=== PATIENT | female | born 1995 | race Caucasian/White ===

== ENCOUNTER → 2017-08-25 | Emergency (ER) | payer MEDICAID, SELFPAY | PROVIDERS: Emergency Provider Emergency Medicine; Visit Provider Emergency Medicine | DX: Z53.29 Procedure and treatment not carried out because of patient's decision for other reasons ==

== ENCOUNTER 2017-10-17 23:42 | Emergency (ER) | payer MEDICAID, SELFPAY ==
[2017-10-17 23:55] VITALS: BP 161/103; PULSE 110; RESP 20; TEMP 37; O2SAT 92; BMI 41.5
--- NOTE | 2017-10-18 00:06 | XR_ITS ---
XR chest 2V HISTORY: ITS.REASON: Short of Breath ORDERING PHYSICIAN: Lj Smalls MD PATIENT AGE: 22 years COMPARISON: None available FINDINGS: The cardiomediastinal silhouette and pulmonary vascularity are within normal limits. Slight increased density is present in the left lower lung zone overlying the fourth rib anteriorly may be related to an area of developing infiltrate versus summation artifact. The remaining lungs are clear. No effusions.. No acute bony abnormalities. IMPRESSION: Summation artifact versus patchy infiltrate in the left mid to lower lung zone
[2017-10-18 00:29] LABS: Urine Pregnancy, HCG Qual. Negative (Negative)
--- NOTE | 2017-10-18 00:49 | HMH.EDSOB ---
ED Disposition Clinical Impression: Bronchitis Disposition: Home, Self-Care Condition on Discharge: Good Instructions: DI for Cough -- Adult Additional Instructions: fluids and see pcp friday at 1 pm and use meds and no smoking Prescriptions: Azithromycin [Zithromax 250mg tab] 250 mg PO DIRECTED #6 tab Benzonatate [Tessalon Perle 100mg Cap] 100 mg PO TID #30 cap predniSONE [Prednisone 20mg Tab] 20 mg PO DAILY #10 tab Referrals: Maria Isabel Garrido PA [Primary Care Provider] - - Critical Care Critical Care Time: No Attestation: On 10/17/17, the high probability of a clinically significant, sudden or life threatening deterioration of the following system(s) required my full and direct attention, intervention and personal management. The time I documented below is in addition to time spent performing reported procedures but includes the following listed in this critical care notation. Medical Decision Making Vital Signs: 10/17/17 23:55 10/18/17 01:39 Temperature 98.6 F Temperature Source Oral Pulse Rate 94 H Pulse Rate [Left Radial] 110 H Respiratory Rate 20 Blood Pressure [Right Radial Artery] 161/103 Blood Pressure Mean [Right Radial Artery] 122 Blood Pressure Source [Right Radial Artery] Automatic Cuff Blood Pressure Position [Right Radial Artery] Sitting 02 Sat by Pulse Oximetry 92 L Oxygen Delivery Method Room Air - Lab Data Lab results reviewed: Yes: I reviewed the patient's lab results. Lab Results 10/18/17 00:17: Urine Color Yellow, Urine Appearance Cloudy, Urine pH 8.0, Ur Specific North 1.015, Urine Protein Negative, Urine Glucose (UA) Negative, Urine Ketones Negative, Urine Blood Negative, Urine Nitrate Negative, Urine Bilirubin Negative, Urine Urobilinogen 1.0, Ur Leukocyte Esterase Negative, Ur Squamous Epith Cells 20-50, Amorphous Sediment 3+ 10/18/17 00:17: Urine HCG, Qual Negative 10/18/17 00:40: WBC 10.1, RBC 4.52, Hgb 13.3, Hct 40.6, MCV 89.9, MCH 29.4, MCHC 32.6, RDW 13.6, Plt Count 166, MPV 8.1, Neut % (Auto) 79.1, Lymph % (Auto) 13.6, [place] % (Auto) 4.4, Eos % (Auto) 2.6, Baso % (Auto) 0.3, Neut # (Auto) 8.0 H, Lymph # (Auto) 1.4, [place] # (Auto) 0.4, Eos # (Auto) 0.3, Baso # (Auto) 0.0 10/18/17 00:40: Sodium 143, Potassium 4.0, Chloride 106, Carbon Dioxide 31, Anion Gap 10.0, BUN 13, Creatinine 0.87, Estimated Creat Clear 111, Estimated GFR 82, Est GFR ( Amer) 99, Glucose 104 10/18/17 00:40: Total Creatine Kinase 123, CK-MB (CK-2) < 0.5, CK-MB (CK-2) Rel Index 0.4, Troponin I < 0.02 10/18/17 00:40: Influenza Type A Ag Negative, Influenza Type B Ag Negative 10/18/17 00:40: Total Bilirubin 0.7, Direct Bilirubin 0.0, AST 29, ALT 28, Alkaline Phosphatase 63, Total Protein 8.1, Albumin 3.8 Result diagrams: 10/18/17 00:40 10/18/17 00:40 Orders (Tests/Meds): ED MEDICATIONS Generic Name Dose Route Start Last Admin Trade Name Freq PRN Reason Stop Dose Admin Albuterol Sulfate 2 puffs 10/18/17 02:21 10/18/17 02:50 Proventil-Hfa 90mcg/Puff Inhaler 11/17/17 02:20 2 act Q6HP PRN Administration Shortness Of Breath Discontinued Medications Generic Name Dose Route Start Last Admin Trade Name Freq PRN Reason Stop Dose Admin Albuterol Sulfate 2.5 mg 10/18/17 01:26 10/18/17 01:36 Albuterol 0.083% 2.5mg/3ml Neb 10/18/17 01:27 2.5 mg ONCE ONE Administration Ceftriaxone Sodium 1 gm 10/18/17 02:28 10/18/17 02:51 Rocephin 1gm Vial IM 10/18/17 02:29 1 gm ONCE ONE Administration Dexamethasone Sodium Phosphate 8 mg 10/18/17 02:28 10/18/17 02:51 Decadron 4mg/Ml 1ml Vial IM 10/18/17 02:29 8 mg ONCE ONE Administration Ceftriaxone Sodium 1 gm/ 50 mls @ 100 mls/hr 10/18/17 02:23 Sodium Chloride IV 10/18/17 02:52 ONCE ONE Lidocaine HCl 0 ml 10/18/17 02:28 Lidocaine 1% 10ml Mdv IM 10/18/17 02:29 ONCE ONE Methylprednisolone Sodium Succinate 125 mg 10/18/17 02:23 Solu-Medrol 12
[2017-10-18 00:56] LABS: Basophils % 0.3 % (0.1-2.0); Eosinophils # 0.3 K/mm3 (0.0-0.4); Eosinophils % 2.6 % (0.1-12.0); Hematocrit 40.6 % (37.0-47.0); Hemoglobin 13.3 g/dL (12.2-16.2); Lymphocytes # 1.4 K/mm3 (0.7-4.5); Lymphocytes % 13.6 K/mm3 (10-50); Mean Corpuscular HGB Conc 32.6 g/dL (31.8-35.4); Mean Corpuscular Hemoglobin 29.4 pg (27.0-31.2); Mean Corpuscular Volume 89.9 fl (81-99); Mean Platelet Volume 8.1 fl (7.4-10.4); Monocytes # 0.4 K/mm3 (0.1-1.0); Monocytes % 4.4 % (1.7-9.3); Neutrophils % 79.1 % (37.0-80.0); Platelet Count 166 K/mm3 (142-424); Red Blood Count 4.52 M/mm3 (4.20-5.40); Red Cell Distribution Width 13.6 % (11.5-17.5); White Blood Count 10.1 K/mm3 (4.8-10.8)
[2017-10-18 00:58] LABS: Microscopic, Urine URINE MICROSCOPIC (MICROSCOPIC)
[2017-10-18 01:24] LABS: Appearance,Urine CLOUDY (Clear); Bilirubin,Urine Negative (Negative); Blood, Urine Negative (Negative); Color,Urine YELLOW (Yellow); Glucose,Urine (UA) Negative (Negative); Ketones,Urine Negative (Negative); Leukocyte Esterase,Urine Negative (Negative); Nitrate,Urine Negative (Negative); Protein,Urine Negative (Negative); Specific Gravity, Urine 1.015 (1.005-1.030)
[2017-10-18 01:25] LABS: Blood Urea Nitrogen 13 mg/dL (7-18); Carbon Dioxide 31 mmol/L (21.0-32.0); Chloride 106 mmol/L (98-107); Creatinine Clearance Estimated 111 mL/min (0-300); Creatinine,Serum 0.87 mg/dL (0.55-1.02); Estimated Glomerular Filt Rate 82 ml/min (>60); GFR (African American) 99 ML/MIN (>60); Glucose 104 mg/dL (74-106); Sodium 143 mmol/L (136-145)
[2017-10-18 01:28] LABS: Amorphous Sediment,Urine 3+ /lpf; Squamous Epithelial Cell,Urine 20-50 #/hpf (0-5)
--- NOTE | 2017-10-18 01:29 | PC.NURSE ---
rt aware of orders for breathing treatment
[2017-10-18 01:32] LABS: Alanine Aminotransferase 28 U/L (12-78); Albumin Level 3.8 gm/dL (3.4-5.0); Alkaline Phosphatase 63 U/L (46-116); Aspartate Amino Transferase 29 U/L (15-37); Bilirubin,Total 0.7 mg/dL (0.2-1.0); Total Protein,Serum 8.1 gm/dL (6.4-8.2)
[2017-10-18 01:39] VITALS: PULSE 118; PULSE 94
[2017-10-18 01:47] LABS: Creatine Kinase 123 U/L (26-192); Troponin I < 0.02 ng/ml (0.00-0.06)
[2017-10-18 01:48] LABS: CKMB Relative Index 0.4 U/L (0-4.0); Creatine Kinase MB < 0.5 mg/ml (0.0-3.6)
[2017-10-18 03:26] VITALS: BP 140/80; PULSE 95; RESP 20; TEMP 37.1; O2SAT 93
== END 2017-10-18 03:29 | disposition home or self-care (01) ==
PROVIDERS: Emergency Provider Emergency Medicine; PCP Physician Assistant
DX: J20.9 Acute bronchitis, unspecified (principal); I10 Essential (primary) hypertension; F17.210 Nicotine dependence, cigarettes, uncomplicated; E66.9 Obesity, unspecified; Z68.41 Body mass index [BMI] 40.0-44.9, adult
CPT/HCPCS: 71046; 80048; 80076; 81001; 81025; 82550; 82553; 84484; 85025; 87040; 87275; 87276; 93005; 96372; 99284

== ENCOUNTER → 2017-12-18 13:57 | Outpatient (CLI) | payer MEDICAID, SELFPAY ==
[2017-12-18 18:16] LABS: Basophils % 0.3 % (0.1-2.0); Eosinophils # 0.1 K/mm3 (0.0-0.4); Eosinophils % 2.2 % (0.1-12.0); Hematocrit 46.1 % (37.0-47.0); Hemoglobin 14.8 g/dL (12.2-16.2); Lymphocytes # 1.6 K/mm3 (0.7-4.5); Lymphocytes % 25.7 K/mm3 (10-50); Mean Corpuscular HGB Conc 32.1 g/dL (31.8-35.4); Mean Corpuscular Volume 93.6 fl (81-99); Mean Platelet Volume 7.8 fl (7.4-10.4); Monocytes # 0.4 K/mm3 (0.1-1.0); Monocytes % 5.9 % (1.7-9.3); Neutrophils % 65.8 % (37.0-80.0); Platelet Count 272 K/mm3 (142-424); Red Blood Count 4.92 M/mm3 (4.20-5.40); Red Cell Distribution Width 13.6 % (11.5-17.5); White Blood Count 6.1 K/mm3 (4.8-10.8)
[2017-12-18 18:31] LABS: HCG Qualitative, Serum Negative (Negative)
[2017-12-18 18:35] LABS: Hemoglobin A1C 5.3 % (0.0-7.0)
[2017-12-18 19:54] LABS: Alanine Aminotransferase 21 U/L (12-78); Albumin Level 3.8 gm/dL (3.4-5.0); Albumin/Globulin Ratio 1.1 (1.1-1.8); Alkaline Phosphatase 59 U/L (46-116); Anion Gap 13.5 mEq/L (5-15); Aspartate Amino Transferase 13 U/L (15-37); Bilirubin,Total 0.6 mg/dL (0.2-1.0); Blood Urea Nitrogen 15 mg/dL (7-18); Calcium 9.3 mg/dL (8.5-10.1); Carbon Dioxide 25 mmol/L (21.0-32.0); Chloride 109 mmol/L (98-107); Chol/HDL Ratio 4.2 (1-3.5); Cholesterol 171 mg/dL (140-200); Creatinine,Serum 0.71 mg/dL (0.55-1.02); Estimated Glomerular Filt Rate 104 ml/min (>60); GFR (African American) 126 ML/MIN (>60); Globulin 3.6 gm/dl (1.3-3.2); Glucose 103 mg/dL (74-106); HDL Cholesterol 41 mg/dL (29-89); LDL Cholesterol 111 mg/dL (0-130); Potassium 4.5 mmoL/L (3.5-5.1); Sodium 143 mmol/L (136-145); T4 (Thyroxine) 8.3 ug/dl (4.7-13.3); Thyroid Stimulating Hormone 2.15 uIU/ml (0.358-3.740); Total Protein,Serum 7.4 gm/dL (6.4-8.2); Triglycerides 96 mg/dL (30-200); VLDL Cholesterol 19 mg/dL (0-40)
[2017-12-20 19:02] LABS: Vitamin D 25 Hydroxy 21.5 ng/mL (30.0-100.0)
== END ==
PROVIDERS: Visit Provider Physician Assistant
DX: R53.83 Other fatigue (principal); R73.9 Hyperglycemia, unspecified; E55.9 Vitamin D deficiency, unspecified
CPT/HCPCS: 80053; 80061; 82652; 83036; 84436; 84443; 84703; 85025

== ENCOUNTER → 2018-01-08 22:35 | Outpatient (CLI) | payer OTHER, SELFPAY ==
--- NOTE | 2018-01-08 22:39 | XR_ITS ---
XR ankle LT min 3V HISTORY: ITS.REASON: Left ankle pain ORDERING PHYSICIAN: DERRICK Odom PATIENT AGE: 22 years COMPARISON: FINDINGS: No fracture or dislocation. No lytic or blastic change. There is normal mineralization.. The joint spaces are well-preserved. No significant degenerative/arthritic changes. No erosive changes evident. IMPRESSION: Negative ankle, no acute finding
--- NOTE | 2018-01-08 22:39 | XR_ITS ---
XR foot LT min 3V HISTORY: ITS.REASON: Left foot pain ORDERING PHYSICIAN: DERRICK Odom PATIENT AGE: 22 years COMPARISON: None FINDINGS: No fracture or dislocation. No lytic or blastic change. There is normal mineralization.. The joint spaces are well-preserved. No significant degenerative/arthritic changes. No erosive changes evident. IMPRESSION: Negative, no acute finding
== END ==
PROVIDERS: PCP Physician Assistant; Visit Provider Physician Assistant
DX: M25.572 Pain in left ankle and joints of left foot (principal); M79.672 Pain in left foot
CPT/HCPCS: 73610; 73630

== ENCOUNTER → 2018-09-07 07:52 | Outpatient (CLI) | payer OTHER, MEDICAID, SELFPAY ==
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
== END ==
PROVIDERS: PCP Physician Assistant; Visit Provider Emergency Medicine
DX: S79.912A Unspecified injury of left hip, initial encounter (principal)
CPT/HCPCS: 73721

== ENCOUNTER → 2018-09-17 12:36 | Outpatient (CLI) | payer MEDICAID, OTHER, SELFPAY ==
[2018-09-18 18:07] LABS: HIV Screen 4th Generation wRfx Non Reactive (Non Reactive); Hepatitis C Antibody <0.1 s/co ratio (0.0-0.9)
[2018-09-19 22:49] LABS: Rapid Plasma Reagin Ab Titer Non Reactive (NonRea<1:1)
== END ==
PROVIDERS: Visit Provider Obstetrics & Gynecology
DX: Z11.3 Encounter for screening for infections with a predominantly sexual mode of transmission (principal)
CPT/HCPCS: 36415; 86592; 86703; 87380; G0432

== ENCOUNTER 2018-12-03 13:00 | Outpatient (RCR) | payer OTHER, MEDICAID, SELFPAY | END 2018-12-03 13:05 | disposition home or self-care (01) | LOC: PT 13:00 | PROVIDERS: Visit Provider Family Medicine | DX: G57.00 Lesion of sciatic nerve, unspecified lower limb (principal); M70.60 Trochanteric bursitis, unspecified hip; M25.859 Other specified joint disorders, unspecified hip | CPT/HCPCS: 97010; 97014; 97035; 97110; 97140; 97163; G0283 ==

== ENCOUNTER → 2018-12-07 13:06 | Outpatient (CLI) | payer MEDICAID, SELFPAY ==
--- NOTE | 2018-12-07 13:09 | US_ITS ---
US transvaginal Ordering Physician: Robert Manzano MD Patient Age: 23 years: Female HISTORY: ITS.REASON: pelvic pain amenorrhea for one year .. No pelvic pain TECHNIQUE: Transvaginal pelvic ultrasound COMPARISON :April 08 2017 FINDINGS Uterus appears normal in size measuring 7.25 cm length x 3.1 cm X4.1. Cm. No uterine mass.. Endometrium measures 6.1 mm AP. Fairly homogeneous Nabothian cyst posterior cervical canal measuring up to 5 mm. Right ovary 3.8 x 2.3 x 2.25 cm. There are numerous small follicles measuring less than 4 to 5 mm. Which is seen at the periphery the right ovary. On a single slice section we see at least 9 follicles in one plane. There are likely a few more-suspect likely at least 12 small follicles but. No dominant follicle Left ovary. 3.5 x 2.3 x 2.5 cm. Similar pattern here left ovary with with numerous small less than 4-5 mm follicles throughout and mainly about the margin of the left ovary. On one of image sections of the left ovary there are least 9 of these small follicles evident. Appear to be likely 12 follicles overall both ovaries. No dominant follicle left ovary or either ovary. Carpal requires correlation of the above pattern could be reflection of polycystic ovary syndrome Vitaly previous ovaries noted 2017 No fluid in cul-de-sac. . IMPRESSION: No acute pelvic pathology 1. Uterus within normal limits. Normal size. Moderate endometrial stripe 6.1 mm. 2. Ovaries upper normal in size bilaterally. Numerous small follicles both ovaries.. No dominant follicle in either ovary. Observed 9 Follicle on a single planes section of both right & left ovary. 3.No fluid in cul-de-sac
== END ==
PROVIDERS: PCP Physician Assistant; Visit Provider Obstetrics & Gynecology
DX: R10.2 Pelvic and perineal pain (principal)
CPT/HCPCS: 76830

== ENCOUNTER → 2018-12-29 14:15 | Outpatient (CLI) | payer MEDICAID, SELFPAY ==
[2018-12-29 14:53] LABS: Basophils % 0.3 % (0.1-2.0); Eosinophils # 0.1 K/mm3 (0.0-0.4); Eosinophils % 1.5 % (0.1-12.0); Hematocrit 42.2 % (37.0-47.0); Hemoglobin 13.9 g/dL (12.2-16.2); Lymphocytes # 2.1 K/mm3 (0.7-4.5); Lymphocytes % 22.1 % (10-50); Mean Corpuscular Hemoglobin 29.9 pg (27.0-31.2); Mean Corpuscular Volume 90.5 fl (81-99); Mean Platelet Volume 6.5 fl (7.4-10.4); Monocytes # 0.4 K/mm3 (0.1-1.0); Monocytes % 4.6 % (1.7-9.3); Neutrophils # 6.7 K/mm3 (1.8-7.8); Neutrophils % 71.4 % (37.0-80.0); Platelet Count 261 K/mm3 (142-424); Red Blood Count 4.66 M/mm3 (4.20-5.40); Red Cell Distribution Width 13.6 % (11.5-17.5); White Blood Count 9.4 K/mm3 (4.8-10.8)
[2018-12-29 16:47] LABS: Alanine Aminotransferase 21 U/L (12-78); Albumin Level 3.7 gm/dL (3.4-5.0); Albumin/Globulin Ratio 1.1 (1.1-1.8); Alkaline Phosphatase 57 U/L (46-116); Aspartate Amino Transferase 5 U/L (15-37); Bilirubin,Total 0.5 mg/dL (0.2-1.0); Blood Urea Nitrogen 17 mg/dL (7-18); Calcium 9.1 mg/dL (8.5-10.1); Carbon Dioxide 26 mmol/L (21.0-32.0); Chloride 106 mmol/L (98-107); Creatinine,Serum 1.01 mg/dL (0.55-1.02); Estimated Glomerular Filt Rate 69 ml/min (>60); GFR (African American) 83 ML/MIN (>60); Globulin 3.4 gm/dl (1.3-3.2); Glucose 83 mg/dL (74-106); Sodium 141 mmol/L (136-145); Total Protein,Serum 7.1 gm/dL (6.4-8.2)
== END ==
PROVIDERS: Visit Provider Obstetrics & Gynecology
DX: N93.8 Other specified abnormal uterine and vaginal bleeding (principal)
CPT/HCPCS: 36415; 80053; 85025

== ENCOUNTER 2019-02-01 00:54 | Emergency (ER) | payer MEDICAID, SELFPAY ==
[2019-02-01 00:56] VITALS: BP 139/69; PULSE 69; RESP 20; TEMP 36.7; O2SAT 97; BMI 33.0
--- NOTE | 2019-02-01 00:59 | CT_ITS ---
CT head/brain wo con COMPARISON: Noncontrast CT scan of brain 03/23/2017 HISTORY: Dizziness TECHNIQUE: Multiple axial scans obtained from base skull to the vertex and were performed without IV contrast. FINDINGS: The base of skull is normal except for small amount of fluid in the left half of the sphenoid sinus. The ventricular system is normal. The guerin-white matter interface appears normal. There are no extra-axial fluid collections and there is no bleed. The bony calvarium appears intact. IMPRESSION: Minimal sphenoid sinus inflammatory disease otherwise negative noncontrast CT scan of brain, agree the [facility] report
--- NOTE | 2019-02-01 00:59 | XR_ITS ---
XR chest 2V HISTORY: ITS.REASON: chest pain ORDERING PHYSICIAN: Lj Smalls MD PATIENT AGE: 23 years COMPARISON: PA and lateral chest 08/19/2018 FINDINGS: The cardiomediastinal silhouette and pulmonary vascularity are within normal limits. The lungs are clear without infiltrates, suspicious nodules, or pleural effusions. No acute bony abnormalities. IMPRESSION: Negative chest, no acute finding
--- NOTE | 2019-02-01 01:00 | PC.NURSE ---
Pt has 324 mg of ASA per EMS
[2019-02-01 01:14] LABS: Basophils # 0.1 K/mm3 (0-0.2); Basophils % 0.7 % (0.1-2.0); Eosinophils # 0.2 K/mm3 (0.0-0.4); Eosinophils % 2.3 % (0.1-12.0); Hematocrit 41.1 % (37.0-47.0); Hemoglobin 13.5 g/dL (12.2-16.2); Lymphocytes # 3.2 K/mm3 (0.7-4.5); Lymphocytes % 38.1 % (10-50); Mean Corpuscular Volume 91.1 fl (81-99); Mean Platelet Volume 6.7 fl (7.4-10.4); Monocytes # 0.5 K/mm3 (0.1-1.0); Monocytes % 5.7 % (1.7-9.3); Neutrophils # 4.5 K/mm3 (1.8-7.8); Neutrophils % 53.3 % (37.0-80.0); Platelet Count 269 K/mm3 (142-424); Red Blood Count 4.51 M/mm3 (4.20-5.40); White Blood Count 8.4 K/mm3 (4.8-10.8)
[2019-02-01 01:36] LABS: Alanine Aminotransferase 43 U/L (12-78); Albumin Level 3.5 gm/dL (3.4-5.0); Alkaline Phosphatase 59 U/L (46-116); Anion Gap 13.9 mEq/L (5-15); Aspartate Amino Transferase 15 U/L (15-37); Bilirubin,Direct 0.1 mg/dL (0.0-0.2); Bilirubin,Indirect 0.3 mg/dL (0.0-0.9); Bilirubin,Total 0.4 mg/dL (0.2-1.0); Blood Urea Nitrogen 12 mg/dL (7-18); Calcium 8.8 mg/dL (8.5-10.1); Carbon Dioxide 27 mmol/L (21.0-32.0); Chloride 106 mmol/L (98-107); Creatinine Clearance Estimated 163 mL/min (50-200); Creatinine,Serum 0.89 mg/dL (0.55-1.02); Estimated Glomerular Filt Rate 79 ml/min (>60); GFR (African American) 96 ML/MIN (>60); Glucose 77 mg/dL (74-106); Potassium 3.9 mmoL/L (3.5-5.1); Sodium 143 mmol/L (136-145); Total Protein,Serum 7.5 gm/dL (6.4-8.2); Troponin I < 0.02 ng/ml (0.00-0.06)
--- NOTE | 2019-02-01 02:04 | HMH.EDCP ---
ED Disposition Clinical Impression: Atypical chest pain Headache Qualifiers: Headache type: unspecified Headache chronicity pattern: acute headache Intractability: not intractable Qualified Code(s): R51 - Headache Disposition: Home, Self-Care Condition on Discharge: Good Instructions: DI for Atypical Chest Pain Additional Instructions: see pcp for follow up Referrals: Maria Isabel Garrido PA [Primary Care Provider] - - Critical Care Critical Care Time: No Attestation: On 02/01/19, the high probability of a clinically significant, sudden or life threatening deterioration of the following system(s) required my full and direct attention, intervention and personal management. The time I documented below is in addition to time spent performing reported procedures but includes the following listed in this critical care notation. Medical Decision Making - Medical Records Medical records reviewed: Yes: I reviewed the patient's medical records. - Dionisio Inquiry Pt receiving controlled substance: No Vital Signs: 02/01/19 00:56 Temperature 98.1 F Temperature Source Oral Pulse Rate [Right] 69 Respiratory Rate 20 Blood Pressure [Right Arm] 139/69 Blood Pressure Mean [Right Arm] 92 02 Sat by Pulse Oximetry 97 - Lab Data Lab results reviewed: Yes: I reviewed the patient's lab results. Lab Results 02/01/19 01:05: WBC 8.4, RBC 4.51, Hgb 13.5, Hct 41.1, MCV 91.1, MCH 30.0, MCHC 33.0, RDW 14.0, Plt Count 269, MPV 6.7 L, Neut % (Auto) 53.3, Lymph % (Auto) 38.1, [place] % (Auto) 5.7, Eos % (Auto) 2.3, Baso % (Auto) 0.7, Neut # (Auto) 4.5, Lymph # (Auto) 3.2, [place] # (Auto) 0.5, Eos # (Auto) 0.2, Baso # (Auto) 0.1 02/01/19 01:05: Sodium 143, Potassium 3.9, Chloride 106, Carbon Dioxide 27, Anion Gap 13.9, BUN 12, Creatinine 0.89, Estimated Creat Clear 163, Estimated GFR 79, Est GFR ( Amer) 96, Glucose 77, Calcium 8.8, Total Bilirubin 0.4, Direct Bilirubin 0.1, Indirect Bilirubin 0.3, AST 15, ALT 43, Alkaline Phosphatase 59, Troponin I < 0.02, Total Protein 7.5, Albumin 3.5 Result diagrams: 02/01/19 01:05 02/01/19 01:05 Orders (Tests/Meds): ORDERS Category Date Time Status CT head/brain wo con Stat Cat Scan 02/01/19 00:59 Taken XR chest 2V Stat Exams 02/01/19 00:59 Taken 12-lead EKG Request [ECG Request by Dr/Francisco Javier] Stat Y 02/01/19 00:59 Ordered - Radiology Data #1 Image(s): Chest Image Reviewed: Yes I reviewed the patient's radiology image Preliminary Findings: Normal/NAD - CT Data CT Scan: Head Time Received: 02:[address] Reviewed: Yes: I have viewed the radiologist's interpretation Preliminary Findings: Normal/NAD - ECG Data Tracing #1 Normal Sinus Rhythm: Yes Ischemic changes: non-specific ST-T wave changes Chest Pain HPI - General Chief Complaint: Chest Pain Stated Complaint: chest pain Time Seen by Provider: 02/01/19 01:10 Mode of Arrival: Ambulatory Source of Information: Patient, EMS Limitations: No Limitations Description of Symptoms (Recalled from ER Triage Doc. by RN): Pt states she has had chest pain acorss her chest for several hours now, states she is also dizzy. - History of Present Illness HPI narrative: pt not feeling well and has dizzyness and chest pain MD complaint: chest pain Onset (ago): hour(s) Duration: intermittent Activity at onset: during rest Pain location: left chest Severity: mild - MARIN Score for Non-Stemi Age of Patient: <30 years old Heart Rate: 50-69 bpm Systolic Blood Pressure: 120-139 mmhg Serum Creatinine: 0.80-1.19 mg/dl CHF [place] Class: I-No CHF Other Risk Factors: None Non-Stemi Risk Score: 44 - Related Data On Oral Contraceptives: No Home Medications Medication Instructions Recorded Confirmed Norgestrel-Ethinyl Estradiol 1 tab PO ONCE 02/01/19 02/01/19 [Cryselle-28 Tablet] Allergies Allergy/AdvReac Type Severity Reaction Status Date / Time No Known Allergies Allergy Verified 01/18/19 09:54
--- NOTE | 2019-02-01 02:07 | ED_ITS ---
ED Disposition Clinical Impression: Atypical chest pain Headache Qualifiers: Headache type: unspecified Headache chronicity pattern: acute headache Intract ability: not intractable Qualified Code(s): R51 - Headache Disposition: Home, Self-Care Condition on Discharge: Good Instructions: DI for Atypical Chest Pain Additional Instructions: see pcp for follow up Referrals: Maria Isabel Garrido PA [Primary Care Provider] - - Critical Care Critical Care Time: No Attestation: On 02/01/19, the high probability of a clinically significant, sudden or life threatening deterioration of the following system(s) required my full and direct attention, intervention and personal management. The time I documented below is in addition to time spent performing reported procedures but includes the following listed in this critical care notation. Medical Decision Making - Medical Records Medical records reviewed: Yes: I reviewed the patient's medical records. - Dionisio Inquiry Pt receiving controlled substance: No Vital Signs: 02/01/19 00:56 Temperature 98.1 F Temperature Source Oral Pulse Rate [Right] 69 Respiratory Rate 20 Blood Pressure [Right Arm] 139/69 Blood Pressure Mean [Right Arm] 92 02 Sat by Pulse Oximetry 97 - Lab Data Lab results reviewed: Yes: I reviewed the patient's lab results. Lab Results 02/01/19 01:05: WBC 8.4, RBC 4.51, Hgb 13.5, Hct 41.1, MCV 91.1, MCH 30.0, MCHC 33.0, RDW 14.0, Plt Count 269, MPV 6.7 L, Neut % (Auto) 53.3, Lymph % (Auto) 38.1, [place] % (Auto) 5.7, Eos % (Auto) 2.3, Baso % (Auto) 0.7, Neut # (Auto) 4.5, Lymph # (Auto) 3.2, [place] # (Auto) 0.5, Eos # (Auto) 0.2, Baso # (Auto) 0.1 02/01/19 01:05: Sodium 143, Potassium 3.9, Chloride 106, Carbon Dioxide 27, Anion Gap 13.9, BUN 12, Creatinine 0.89, Estimated Creat Clear 163, Estimated GFR 79, Est GFR ( Amer) 96, Glucose 77, Calcium 8.8, Total Bilirubin 0.4, Direct Bilirubin 0.1, Indirect Bilirubin 0.3, AST 15, ALT 43, Alkaline Phosphatase 59, Troponin I < 0.02, Total Protein 7.5, Albumin 3.5 Result diagrams: 02/01/19 01:05 02/01/19 01:05 Orders (Tests/Meds): ORDERS Category Date Time Status CT head/brain wo con Stat Cat Scan 02/01/19 00:59 Taken XR chest 2V Stat Exams 02/01/19 00:59 Taken 12-lead EKG Request [ECG Request by /Francisco Javier] Stat Y 02/01/19 00:59 Ordered - Radiology Data #1 Image(s): Chest Image Reviewed: Yes I reviewed the patient's radiology image Preliminary Findings: Normal/NAD - CT Data CT Scan: Head Time Received: 02:[address] Reviewed: Yes: I have viewed the radiologist's interpretation Preliminary Findings: Normal/NAD - ECG Data Tracing #1 Normal Sinus Rhythm: Yes Ischemic changes: non-specific ST-T wave changes Chest Pain HPI - General Chief Complaint: Chest Pain Stated Complaint: chest pain Time Seen by Provider: 02/01/19 01:10 Mode of Arrival: Ambulatory Source of Information: Patient, EMS Limitations: No Limitations Description of Symptoms (Recalled from ER Triage Doc. by RN): Pt states she has had chest pain acorss her chest for several hours now, states she is also dizzy. - History of Present Illness HPI narrative: pt not feeling well and has dizzyness and chest
[2019-02-01 02:44] VITALS: BP 121/76; PULSE 79; RESP 16; TEMP 36.6; O2SAT 100
== END 2019-02-01 02:45 | disposition home or self-care (01) ==
PROVIDERS: Emergency Provider Emergency Medicine; PCP Physician Assistant
DX: R07.89 Other chest pain (principal); K21.9 Gastro-esophageal reflux disease without esophagitis; I10 Essential (primary) hypertension; F17.210 Nicotine dependence, cigarettes, uncomplicated
CPT/HCPCS: 70450; 71046; 80048; 80076; 84484; 85025; 93005; 99283

== ENCOUNTER → 2019-02-08 12:52 | Outpatient (CLI) | payer MEDICAID, SELFPAY ==
[2019-02-08 14:33] LABS: Hemoglobin A1C 5.1 % (0.0-7.0)
[2019-02-08 16:32] LABS: Chol/HDL Ratio 4.9 (1-3.5); Cholesterol 161 mg/dL (140-200); HDL Cholesterol 33 mg/dL (29-89); LDL Cholesterol 105 mg/dL (0-130); T4 (Thyroxine) 12.1 ug/dl (4.7-13.3); Triglycerides 113 mg/dL (30-200); VLDL Cholesterol 23 mg/dL (0-40)
[2019-02-12 06:19] LABS: Vitamin D 25 Hydroxy 27.5 ng/mL (30.0-100.0)
== END ==
PROVIDERS: Visit Provider Nurse Practitioner Family
DX: R51 Headache (principal); R53.83 Other fatigue
CPT/HCPCS: 80061; 82652; 83036; 84436; 84443

== ENCOUNTER → 2019-03-08 11:02 | Outpatient (CLI) | payer MEDICAID, SELFPAY | PROVIDERS: Visit Provider Internal Medicine Cardiovascular Disease | DX: R07.9 Chest pain, unspecified (principal); R06.00 Dyspnea, unspecified; E66.9 Obesity, unspecified; I10 Essential (primary) hypertension; R53.83 Other fatigue; G47.33 Obstructive sleep apnea (adult) (pediatric); F17.200 Nicotine dependence, unspecified, uncomplicated | CPT/HCPCS: 93017 ==

== ENCOUNTER → 2019-03-23 16:11 | Outpatient (CLI) | payer MEDICAID, SELFPAY ==
[2019-03-23 16:14] LABS: Microscopic, Urine URINE MICROSCOPIC (MICROSCOPIC)
[2019-03-23 16:46] LABS: Basophils % 0.5 % (0.1-2.0); Eosinophils # 0.1 K/mm3 (0.0-0.4); Eosinophils % 1.6 % (0.1-12.0); Hematocrit 41.3 % (37.0-47.0); Hemoglobin 13.4 g/dL (12.2-16.2); Lymphocytes # 1.7 K/mm3 (0.7-4.5); Lymphocytes % 22.4 % (10-50); Mean Corpuscular HGB Conc 32.3 g/dL (31.8-35.4); Mean Corpuscular Hemoglobin 28.8 pg (27.0-31.2); Mean Corpuscular Volume 89.1 fl (81-99); Monocytes # 0.4 K/mm3 (0.1-1.0); Neutrophils # 5.4 K/mm3 (1.8-7.8); Neutrophils % 70.6 % (37.0-80.0); Platelet Count 253 K/mm3 (142-424); Red Blood Count 4.64 M/mm3 (4.20-5.40); Red Cell Distribution Width 12.9 % (11.5-17.5); White Blood Count 7.6 K/mm3 (4.8-10.8)
[2019-03-23 16:57] LABS: Appearance,Urine CLEAR (Clear); Bilirubin,Urine Negative (Negative); Blood, Urine 2+ (Negative); Color,Urine YELLOW (Yellow); Glucose,Urine (UA) Negative (Negative); Ketones,Urine Negative (Negative); Leukocyte Esterase,Urine Negative (Negative); Nitrate,Urine Negative (Negative); Protein,Urine TRACE (Negative); Specific Gravity, Urine >= 1.030 (1.005-1.030); Urine Pregnancy, HCG Qual. Negative (Negative)
[2019-03-23 17:27] LABS: Bacteria,Urine Trace /lpf; RBC,Urine Occasional #/hpf (0-3)
[2019-03-23 19:06] LABS: Alanine Aminotransferase 21 U/L (12-78); Albumin Level 3.7 gm/dL (3.4-5.0); Alkaline Phosphatase 55 U/L (46-116); Anion Gap 18.1 mEq/L (5-15); Aspartate Amino Transferase 13 U/L (15-37); Bilirubin,Total 0.5 mg/dL (0.2-1.0); Blood Urea Nitrogen 12 mg/dL (7-18); Calcium 9.1 mg/dL (8.5-10.1); Carbon Dioxide 24 mmol/L (21.0-32.0); Chloride 104 mmol/L (98-107); Creatinine,Serum 0.92 mg/dL (0.55-1.02); Estimated Glomerular Filt Rate 76 ml/min (>60); GFR (African American) 92 ML/MIN (>60); Globulin 3.6 gm/dl (1.3-3.2); Glucose 115 mg/dL (74-106); Potassium 4.1 mmoL/L (3.5-5.1); Sodium 142 mmol/L (136-145); Total Protein,Serum 7.3 gm/dL (6.4-8.2)
== END ==
PROVIDERS: Visit Provider Obstetrics & Gynecology
DX: Z01.818 Encounter for other preprocedural examination (principal); R10.2 Pelvic and perineal pain; N83.209 Unspecified ovarian cyst, unspecified side
CPT/HCPCS: 36415; 80053; 81001; 81025; 85025

== ENCOUNTER → 2019-04-06 15:31 | Outpatient (CLI) | payer MEDICAID, SELFPAY ==
--- NOTE | 2019-04-06 16:08 | XR_ITS ---
XR chest portable HISTORY: PICC line placement ITS.REASON: s/p picc placement ORDERING PHYSICIAN: Robert Manzano MD PATIENT AGE: 23 years COMPARISON: 02/01/2019 FINDINGS: Left upper extremity PICC line has been placed. The tip appears to be in good position in the region of the distal aspect of the superior vena cava. Unremarkable cardiopulmonary structures. IMPRESSION: PICC line tip appears to be in good position FINDINGS called to Antony on 04/06/2019 4:25 PM.
== END ==
PROVIDERS: PCP Physician Assistant; Visit Provider Obstetrics & Gynecology
DX: Z01.818 Encounter for other preprocedural examination (principal)
CPT/HCPCS: 71045; C1751

== ENCOUNTER → 2019-06-07 16:18 | Outpatient (CLI) | payer MEDICAID, SELFPAY ==
--- NOTE | 2019-06-07 16:20 | XR_ITS ---
PROCEDURE: XR WRIST LT W SCAPHOID CLINICAL INDICATION: Left wrist pain COMPARISON: WRL3 WRIST-3 VIEWS-LT from 12/24/2014 WRR3 WRIST-3 VIEWS-RT from 06/07/2015 XR WRIST LT MIN 3V from 06/01/2019 FINDINGS: Bone density, joint spaces and alignment are normal. There is no acute fracture. Soft tissues are unremarkable. IMPRESSION: No acute findings. Dictated by: Mahamed Bajwa 06/07/2019 16:44 Electronically signed by Mahamed Bajwa in [place] 06/07/2019 16:44
== END ==
PROVIDERS: PCP Physician Assistant; Visit Provider Physician Assistant
DX: M25.532 Pain in left wrist (principal)
CPT/HCPCS: 73110

== ENCOUNTER → 2019-06-29 08:49 | Outpatient (CLI) | payer MEDICAID, SELFPAY ==
--- NOTE | 2019-06-29 08:58 | XR_ITS ---
PROCEDURE: XR FOOT WT BEARING RT 3V CLINICAL INDICATION: pain COMPARISON: [id number] XR foot LT min 3V from 01/08/2018 FINDINGS: No fracture or dislocation. No lytic or blastic change. There is normal mineralization. The joint spaces are well-preserved. No significant degenerative/arthritic changes. No erosive changes evident. Other findings:None. IMPRESSION: No acute findings. Dictated by: Troy Owen MD 06/29/2019 17:47 Electronically signed by Troy Owen MD in [place] 06/29/2019 17:47
--- NOTE | 2019-06-29 08:58 | XR_ITS ---
PROCEDURE: XR FOOT WT BEARING LT 3V CLINICAL INDICATION: pain COMPARISON: [id number] XR foot LT min 3V from 01/08/2018 FINDINGS: No fracture or dislocation. No lytic or blastic change. There is normal mineralization. The joint spaces are well-preserved. No significant degenerative/arthritic changes. No erosive changes evident. Other findings:None. IMPRESSION: No acute findings. Dictated by: Troy Owen MD 06/29/2019 17:47 Electronically signed by Troy Owen MD in [place] 06/29/2019 17:47
== END ==
PROVIDERS: PCP Physician Assistant; Visit Provider Nurse Practitioner
DX: M79.672 Pain in left foot (principal); M79.671 Pain in right foot
CPT/HCPCS: 73630

== ENCOUNTER 2019-07-15 09:00 | Outpatient (RCR) | payer MEDICAID, SELFPAY ==
--- NOTE | 2019-06-24 09:43 | HMH.OTOPEV ---
OT Inpatient Evaluation Rehab OT Outpatient Eval Start: 06/24/19 09:20 Freq: Status: Active Protocol: Document 06/24/19 09:22 [id number] (Rec: 06/24/19 09:43 [facility] [id number][facility] Electronically Signed By Enoch Nieto OT 06/24/19 09:22 Outpatient Therapy Subjective History Subjective History Pt is a 23 year old female who reports to therapy for initial evaluation to left wrist. Pt injured wrist on May 30 at work. 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 Pt has had continued pain and swelling at wrist. Upon evaluation pt does demonstrate with significant decline in AROM and strength at left wrist. Pt will continue to be seen twice a week in order to address all deficits. Chief Complaint Pain,Stiff,Weakness Symptom Type Ache,Throb,Sharp,Numbness, Shooting Symptoms Relieved By Nothing Symptoms Aggravated By Physical Activity,Twisting, Lifting Prior Functional Limitations None Current Functional Limitations Reaching,Lifting,Housework, Recreation Activity Symptom Description Constant but Variable Level of pain today (0-10) 9 Pain scale - at its best (0-10) 5 Pain scale - at its worst (0-10) 10 Wrist/Hand Eval Wrist Range of Motion Left Wrist Limitations of Range of Motion Pain Wrist Extension Active Range of Motion ( 25 degrees degrees) Wrist Flexion Active Range of Motion ( 25 degrees degrees) Wrist Radial Deviation Active Range of 13 degrees Motion (degrees) Wrist Ulnar Deviation Active Range of 15 degrees Motion (degrees) Wrist Manual Muscle Testing Left Wrist Extension Strength Grade 4- Good- Wrist Flexion Strength Grade 4- Good- Wrist Radial Deviation Strength Grade 4- Good- Wrist Ulnar Deviation Strength Grade 4- Good- Supervisor Specialty Plant/Pinch Strength Right Supervisor [employer]ty [employer] Strength Measurement (lbs) 20 Left Supervisor Specialty [employer] Strength Measurement (lbs) 0 OT Outpatient Assessment Impairments Problems/Impairments Palpation Tenderness,Impaired Range of Motion,Impaired Strength,Impaired Endurance, Impaired Lifting,Subjective C/ O Pain,Impaired Self Care/
== END 2019-07-15 09:05 | disposition home or self-care (01) ==
LOC: OT 09:00
PROVIDERS: Visit Provider Orthopaedic Surgery
DX: S69.92XA Unspecified injury of left wrist, hand and finger(s), initial encounter (principal)
CPT/HCPCS: 97014; 97110; 97140; 97165; 97763; G0283

== ENCOUNTER → 2019-07-23 14:50 | Outpatient (CLI) | payer MEDICAID, SELFPAY ==
--- NOTE | 2019-07-23 14:54 | XR_ITS ---
PROCEDURE: XR WRIST LT MIN 3V CLINICAL INDICATION: wrist pain COMPARISON: WRR3 WRIST-3 VIEWS-RT from 06/07/2015 XR WRIST LT MIN 3V from 06/01/2019 XR WRIST LT W SCAPHOID from 06/07/2019 XR WRIST LT MIN 3V from 06/19/2019 FINDINGS: No fracture, dislocation, lytic change, or blastic change evident. No significant degenerative change IMPRESSION: No acute findings. Dictated by: Troy Owen MD 07/23/2019 17:05 Electronically signed by Troy Owen MD in [place] 07/23/2019 17:05
== END ==
PROVIDERS: PCP Emergency Medicine; Visit Provider Orthopaedic Surgery
DX: M25.532 Pain in left wrist (principal)
CPT/HCPCS: 73110

== ENCOUNTER 2019-11-04 16:30 | Outpatient (RCR) | payer MEDICAID, SELFPAY | END 2019-11-04 17:00 | disposition home or self-care (01) | LOC: PT 16:30 | PROVIDERS: PCP Physician Assistant; Visit Provider Family Medicine Sports Medicine | DX: M70.60 Trochanteric bursitis, unspecified hip (principal) | CPT/HCPCS: 97010; 97163 ==

== ENCOUNTER 2020-01-19 19:30 | Emergency (ER) | payer MEDICAID, SELFPAY ==
[2020-01-19 19:30] VITALS: BP 158/100; PULSE 88; RESP 18; TEMP 36.7; O2SAT 95; BMI 38.7
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
[2020-01-19 19:49] LABS: Apearance,Urine Cloudy (Clear); Color,Urine Yellow (Yellow); Glucose,Urine (UA) Negative (Negative); Ketones,Urine Negative (Negative); Protein,Urine Negative (Negative)
[2020-01-19 19:50] LABS: Bilirubin,Urine Negative (Negative); Blood, Urine 2+ (Negative); UTC Leukocyte Esterase,Urine Trace (Negative); UTC Nitrate,Urine Negative (Negative); UTC Pregnancy Test, Urine Negative (Negative); Urobilinogen,Urine 1 EU/dl (0.2)
[2020-01-19 20:13] VITALS: BP 158/100; PULSE 88; RESP 18; TEMP 36.7; O2SAT 95
== END 2020-01-19 20:14 | disposition home or self-care (01) ==
PROVIDERS: Emergency Provider Nurse Practitioner Family; PCP Physician Assistant
DX: S39.012A Strain of muscle, fascia and tendon of lower back, initial encounter (principal); K21.9 Gastro-esophageal reflux disease without esophagitis; I10 Essential (primary) hypertension; F17.210 Nicotine dependence, cigarettes, uncomplicated; G43.709 Chronic migraine without aura, not intractable, without status migrainosus
CPT/HCPCS: 81003; 81025; 87086; 96372; 99202

== ENCOUNTER 2020-02-25 01:35 | Emergency (ER) | payer MEDICAID, SELFPAY ==
--- NOTE | 2020-02-25 01:35 | ECG_ITS ---
APPROVED REPORT Exam: Resting ECG HR:76 bpm ECG Measurements Heart Rate 76 AXES MI 148 P 31 QRSd 70 QRS 37 QT 366 T 10 QTc 411 <Conclusion> Normal sinus rhythm Septal infarct, age undetermined Abnormal ECG Electronically signed by : Mik Canchola, 02/25/2020 17:41:40
[2020-02-25 01:36] VITALS: BP 157/94; PULSE 83; RESP 14; TEMP 37.4; O2SAT 99; BMI 35.9
--- NOTE | 2020-02-25 01:44 | XR_ITS ---
PROCEDURE: XR CHEST 2V CLINICAL HISTORY: chest pain COMPARISON: CXR2V XR chest 2V from 08/19/2018 Chest from 02/01/2019 XR CHEST 2V from 09/01/2019 FINDINGS: The cardiomediastinal silhouette and pulmonary vascularity are within normal limits. The lungs are clear without infiltrates, suspicious nodules, or pleural effusions. No acute bony abnormalities. IMPRESSION: No acute findings. Dictated by: Troy Owen MD 02/25/2020 07:06 Electronically signed by Troy Owen MD in [place] 02/25/2020 07:06
--- NOTE | 2020-02-25 01:50 | PC.NURSE ---
call placed to [facility] for iv venipuncture
[2020-02-25 02:33] LABS: Alanine Aminotransferase 15 U/L (12-78); Albumin Level 4.6 g/dl (3.5-5.0); Albumin/Globulin Ratio 1.4 (1.1-1.8); Alkaline Phosphatase 48 U/L (38-126); Amylase 68 U/L (30-110); Anion Gap 13.7 mEq/L (5-15); Aspartate Amino Transferase 26 U/L (14-36); Bilirubin,Total 0.4 mg/dl (0.2-1.3); Blood Urea Nitrogen 15 mg/dl (7-17); Calcium 9.3 mg/dl (8.4-10.2); Carbon Dioxide 29 mmol/L (22.0-30.0); Chloride 100 mmol/L (98-107); Creatinine Clearance Estimated 196 mL/min (50-200); Estimated Glomerular Filt Rate 89 ml/min (>60); GFR (African American) 108 ML/MIN (>60); Globulin 3.2 g/dL (1.3-3.2); Glucose 117 mg/dl (74-100); Lipase 66 U/L (23-300); Potassium 3.7 mmoL/L (3.5-5.1); Sodium 139 mmol/L (136-145); Total Protein,Serum 7.8 g/dl (6.3-8.2)
[2020-02-25 02:34] LABS: Basophils # 0.1 K/mm3 (0-0.2); Basophils % 0.6 % (0.1-2.0); Eosinophils # 0.1 K/mm3 (0.0-0.4); Eosinophils % 1.5 % (0.1-12.0); Hemoglobin 14.1 g/dL (12.2-16.2); Lymphocytes # 3.1 K/mm3 (0.7-4.5); Lymphocytes % 38.6 % (10-50); Mean Corpuscular HGB Conc 34.3 g/dL (31.8-35.4); Mean Corpuscular Hemoglobin 30.9 pg (27.0-31.2); Mean Corpuscular Volume 89.9 fl (81-99); Mean Platelet Volume 6.8 fl (7.4-10.4); Monocytes # 0.5 K/mm3 (0.1-1.0); Monocytes % 6.1 % (1.7-9.3); Neutrophils # 4.3 K/mm3 (1.8-7.8); Neutrophils % 53.3 % (37.0-80.0); Platelet Count 242 K/mm3 (142-424); Red Blood Count 4.57 M/mm3 (4.20-5.40); Red Cell Distribution Width 13.7 % (11.5-17.5); White Blood Count 8.1 K/mm3 (4.8-10.8)
[2020-02-25 02:37] LABS: HCG Qualitative, Serum Negative (Negative)
[2020-02-25 02:44] LABS: Troponin I < 0.01 ng/ml (0.00-0.034)
[2020-02-25 02:59] VITALS: BP 139/91; PULSE 66; RESP 18; O2SAT 97
--- NOTE | 2020-02-25 03:07 | PC.NURSE ---
Patient gone for chest xray at this time
--- NOTE | 2020-02-25 03:10 | HMH.EDCP ---
ED Disposition Clinical Impression: Chest pain Qualifiers: Chest pain type: unspecified Qualified Code(s): R07.9 - Chest pain, unspecified Disposition: Home, Self-Care Condition on Discharge: Good Instructions: DI for Atypical Chest Pain Additional Instructions: see pcp for follow up Referrals: Provider,Referral, [Primary Care Provider] - - Critical Care Critical Care Time: No Attestation: On 02/25/20, the high probability of a clinically significant, sudden or life threatening deterioration of the following system(s) required my full and direct attention, intervention and personal management. The time I documented below is in addition to time spent performing reported procedures but includes the following listed in this critical care notation. Medical Decision Making - Medical Records Medical records reviewed: Yes: I reviewed the patient's medical records. - Dionisio Inquiry Pt receiving controlled substance: No Vital Signs: 02/25/20 01:36 02/25/20 02:59 02/25/20 03:23 Temperature 99.3 F Temperature Source Oral Pulse Rate [Right Brachial] 83 66 70 Respiratory Rate 14 18 Blood Pressure [Right Arm] 157/94 H 139/91 H 139/91 H Blood Pressure Mean [Right Arm] 115 107 107 Blood Pressure Source [Right Arm] Automatic Cuff Automatic Cuff Blood Pressure Position [Right Arm] Sitting Sitting Supine 02 Sat by Pulse Oximetry 99 97 95 Oxygen Delivery Method Room Air Room Air 02/25/20 03:48 Temperature Temperature Source Pulse Rate [Right Brachial] 69 Respiratory Rate Blood Pressure [Right Arm] 133/77 Blood Pressure Mean [Right Arm] 95 Blood Pressure Source [Right Arm] Automatic Cuff Blood Pressure Position [Right Arm] Sitting 02 Sat by Pulse Oximetry 95 Oxygen Delivery Method Room Air - Lab Data Lab results reviewed: Yes: I reviewed the patient's lab results. Lab Results 02/25/20 02:00: WBC 8.1, RBC 4.57, Hgb 14.1, Hct 41.0, MCV 89.9, MCH 30.9, MCHC 34.3, RDW 13.7, Plt Count 242, MPV 6.8 L, Neut % (Auto) 53.3, Lymph % (Auto) 38.6, Mayes % (Auto) 6.1, Eos % (Auto) 1.5, Baso % (Auto) 0.6, Neut # (Auto) 4.3, Lymph # (Auto) 3.1, Mayes # (Auto) 0.5, Eos # (Auto) 0.1, Baso # (Auto) 0.1 02/25/20 02:00: Sodium 139, Potassium 3.7, Chloride 100, Carbon Dioxide 29, Anion Gap 13.7, BUN 15, Creatinine 0.80, Estimated Creat Clear 196, Estimated GFR 89, Est GFR ( Amer) 108, Glucose 117 H, Calcium 9.3, Total Bilirubin 0.4, AST 26, ALT 15, Alkaline Phosphatase 48, Troponin I < 0.01, Total Protein 7.8, Albumin 4.6, Globulin 3.2, Albumin/Globulin Ratio 1.4, Amylase 68 02/25/20 02:00: Lipase 66 02/25/20 02:00: Serum HCG, Qual Negative Result diagrams: 02/25/20 02:00 02/25/20 02:00 Orders (Tests/Meds): ORDERS Category Date Time Status XR chest 2V Stat Exams 02/25/20 01:44 Ordered Troponin I Q3H Lab 02/25/20 04:45 Ordered Troponin I Q3H Lab 02/25/20 07:45 Ordered - Radiology Data #1 Image(s): Chest Image Reviewed: Yes I reviewed the patient's radiology image Preliminary Findings: Normal/NAD - ECG Data Tracing #1 Normal Sinus Rhythm: Yes Ischemic changes: non-specific ST-T wave changes Chest Pain HPI - General Chief Complaint: Chest Pain Stated Complaint: chest pain Time Seen by Provider: 02/25/20 02:00 Mode of Arrival: Ambulatory Source of Information: Patient, Medical Record Limitations: No Limitations Description of Symptoms (Recalled from ER Triage Doc. by RN): Patient reports sharp centralized chest pain and pain down right arm that started about 2000 tonight. - History of Present Illness HPI narrative: acute onset of ant chest pain with rad to rt upper ext with parasthesia to rt upper ext - no sob and no fever or recent illness MD complaint: chest pain indicative of cardiac Onset (ago): hour(s) Duration: constant Activity at onset: during rest Pain location: right chest Severity: moderate Quality: sharp Pain radiation: RUE Risk Factors for CAD: Family Hx
--- NOTE | 2020-02-25 03:11 | PC.NURSE ---
Patient back from xray at this time
[2020-02-25 03:23] VITALS: BP 139/91; PULSE 70; O2SAT 95
[2020-02-25 03:48] VITALS: BP 133/77; PULSE 69; O2SAT 95
[2020-02-25 04:30] VITALS: BP 126/73; PULSE 63; O2SAT 95
[2020-02-25 05:21] VITALS: BP 129/78; PULSE 61; RESP 15; TEMP 37.2; O2SAT 95
--- NOTE | 2020-02-25 05:23 | PC.NURSE ---
Patient refused second troponin and wanted to be discharged
== END 2020-02-25 05:23 | disposition home or self-care (01) ==
PROVIDERS: Emergency Provider Emergency Medicine; PCP Physician Assistant
DX: R07.9 Chest pain, unspecified (principal); K21.9 Gastro-esophageal reflux disease without esophagitis; I10 Essential (primary) hypertension; G43.709 Chronic migraine without aura, not intractable, without status migrainosus; F17.210 Nicotine dependence, cigarettes, uncomplicated; Z86.718 Personal history of other venous thrombosis and embolism
CPT/HCPCS: 71046; 80053; 82150; 83690; 84484; 84703; 85025; 93005; 96374; 96375; 99284

== ENCOUNTER 2020-04-08 | Emergency (ER) | payer MEDICAID, SELFPAY ==
[2020-04-08 00:05] VITALS: BP 140/90; PULSE 82; RESP 16; TEMP 36.7; O2SAT 98; BMI 26.5
--- NOTE | 2020-04-08 00:35 | PC.NURSE ---
URINE SENT TO LAB
[2020-04-08 00:36] LABS: Microscopic, Urine URINE MICROSCOPIC (MICROSCOPIC)
[2020-04-08 00:38] LABS: Appearance,Urine CLOUDY (Clear); Bilirubin,Urine Negative (Negative); Blood, Urine 3+ (Negative); Color,Urine YELLOW (Yellow); Glucose,Urine (UA) Negative (Negative); Ketones,Urine Negative (Negative); Leukocyte Esterase,Urine Negative (Negative); Nitrate,Urine Negative (Negative); Protein,Urine 2+ (Negative); Specific Gravity, Urine >= 1.030 (1.005-1.030)
[2020-04-08 00:41] LABS: RBC,Urine TNTC #/hpf (0-3); WBC,Urine Occasional #/hpf (0-3)
[2020-04-08 00:42] LABS: Urine Pregnancy, HCG Qual. Negative (Negative)
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
--- NOTE | 2020-04-08 00:52 | PC.NURSE ---
REQUESTED PATIENT GIVEN ADDITIONAL URINE, PATIENT STATES IS UNABLE TO . MD NOTIFIED. REQUESTED PO INTAKE GIVEN FOR INCENTIVE TO VOID
[2020-04-08 01:28] VITALS: BP 124/73; PULSE 80; RESP 16; TEMP 36.8; O2SAT 98
[2020-04-11 09:17] LABS: Neisseria gonorrhoeae, NAA Negative (Negative)
== END 2020-04-08 01:40 | disposition home or self-care (01) ==
PROVIDERS: Emergency Provider Family Medicine; PCP Physician Assistant
DX: N72 Inflammatory disease of cervix uteri (principal); A59.9 Trichomoniasis, unspecified; J45.909 Unspecified asthma, uncomplicated; K21.9 Gastro-esophageal reflux disease without esophagitis; I10 Essential (primary) hypertension; G43.709 Chronic migraine without aura, not intractable, without status migrainosus; E55.9 Vitamin D deficiency, unspecified; Z79.899 Other long term (current) drug therapy
CPT/HCPCS: 81001; 81025; 87491; 87591; 96372; 99282

== ENCOUNTER 2020-05-05 16:16 | Emergency (ER) | payer MEDICAID, SELFPAY ==
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
[2020-05-05 17:03] VITALS: BP 134/91; PULSE 109; RESP 20; TEMP 36.9; O2SAT 99; BMI 35.9
[2020-05-05 17:08] LABS: UTC Pregnancy Test, Urine Negative (Negative)
[2020-05-05 17:18] VITALS: BP 134/91; PULSE 109; RESP 20; TEMP 36.9; O2SAT 99
== END 2020-05-05 17:23 | disposition home or self-care (01) ==
PROVIDERS: Emergency Provider Nurse Practitioner Family; PCP Physician Assistant
DX: R07.81 Pleurodynia (principal); M25.512 Pain in left shoulder; M54.2 Cervicalgia; V48.5XXA Car driver injured in noncollision transport accident in traffic accident, initial encounter; Y92.488 Other paved roadways as the place of occurrence of the external cause; I10 Essential (primary) hypertension; G43.709 Chronic migraine without aura, not intractable, without status migrainosus; F17.210 Nicotine dependence, cigarettes, uncomplicated; K21.9 Gastro-esophageal reflux disease without esophagitis
CPT/HCPCS: 81025; 99201

== ENCOUNTER 2020-05-07 16:41 | Emergency (ER) | payer MEDICAID, SELFPAY ==
--- NOTE | 2020-05-07 17:07 | XR_ITS ---
PROCEDURE: XR CERVICAL SPINE 3V CLINICAL INDICATION: PAIN The mid neck pain COMPARISON: CR CS5 CERVICAL SPINE 4 OR 5 VIEWS from 05/17/2014 FINDINGS: Alignment: Normal alignment. Bony structures: No fracture or dislocation. No lytic or blastic change. Disc spaces: No significant degenerative change. The disc spaces are preserved. Additional findings: IMPRESSION: No acute findings. Dictated by: Troy Owen MD 05/07/2020 18:56 Troy Owen MD in [place] 05/07/2020 18:56
--- NOTE | 2020-05-07 17:08 | XR_ITS ---
PROCEDURE: XR RIBS BI MIN 4V W CXR1V CLINICAL INDICATION: PAIN Bilateral rib pain COMPARISON: CR Chest from 02/01/2019 CR XR CHEST 2V from 09/01/2019 CR XR CHEST 2V from 02/25/2020 FINDINGS: Multiple views of the the ribs show no obvious fracture. No lytic or blastic change. Consider follow-up in 7-[address] with 3D reformats if pain persists Frontal view of the chest shows no acute finding IMPRESSION: No acute findings. Dictated by: Troy Owen MD 05/07/2020 18:54 Troy Owen MD in [place] 05/07/2020 18:54
[2020-05-07 17:09] VITALS: BP 136/90; PULSE 83; RESP 20; TEMP 36.9; O2SAT 98; BMI 46.5
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
[2020-05-07 18:00] VITALS: BP 136/90; PULSE 83; RESP 20; TEMP 36.9; O2SAT 98
== END 2020-05-07 18:04 | disposition home or self-care (01) ==
PROVIDERS: Emergency Provider Nurse Practitioner Family; PCP Physician Assistant
DX: M54.2 Cervicalgia (principal); R07.89 Other chest pain; J45.909 Unspecified asthma, uncomplicated; K21.9 Gastro-esophageal reflux disease without esophagitis; I10 Essential (primary) hypertension; G43.709 Chronic migraine without aura, not intractable, without status migrainosus; F17.210 Nicotine dependence, cigarettes, uncomplicated; Z91.048 Other nonmedicinal substance allergy status
CPT/HCPCS: 71111; 72040; 99201

== ENCOUNTER 2020-05-12 15:47 | Emergency (ER) | payer MEDICAID, SELFPAY ==
--- NOTE | 2020-05-12 15:53 | XR_ITS ---
PROCEDURE: XR FOOT LT MIN 3V CLINICAL INDICATION: PAIN COMPARISON: CR [id number] XR foot LT min 3V from 01/08/2018 CR XR FOOT WT BEARING LT 3V from 06/29/2019 CR XR FOOT WT BEARING RT 3V from 06/29/2019 CR XR ANKLE LT MIN 3V from 05/12/2020 FINDINGS: No fracture or dislocation. No lytic or blastic change. There is normal mineralization. The joint spaces are well-preserved. No significant degenerative/arthritic changes. No erosive changes evident. Other findings:None. IMPRESSION: No acute findings. Dictated by: Troy Owen MD 05/12/2020 18:58 Troy Owen MD in [place] 05/12/2020 18:58
--- NOTE | 2020-05-12 16:11 | XR_ITS ---
PROCEDURE: XR FOOT LT MIN 3V CLINICAL INDICATION: PAIN COMPARISON: CR [id number] XR foot LT min 3V from 01/08/2018 CR XR FOOT WT BEARING LT 3V from 06/29/2019 CR XR FOOT WT BEARING RT 3V from 06/29/2019 CR XR ANKLE LT MIN 3V from 05/12/2020 FINDINGS: No fracture or dislocation. No lytic or blastic change. There is normal mineralization. The joint spaces are well-preserved. No significant degenerative/arthritic changes. No erosive changes evident. Other findings:None. IMPRESSION: No acute findings. Dictated by: Troy Owen MD 05/12/2020 18:58 Troy Owen MD in [place] 05/12/2020 18:58
[2020-05-12 16:20] VITALS: BP 141/86; PULSE 88; RESP 19; TEMP 36.7; O2SAT 99; BMI 35.9
--- NOTE | 2020-05-12 17:07 | HMH.EDUTC ---
[facility] [place] Disposition Clinical Impression: Foot sprain Qualifiers: Encounter type: initial encounter Laterality: left Qualified Code(s): S93.602A - Unspecified sprain of left foot, initial encounter Disposition: Home, Self-Care Condition on Discharge: Good Instructions: How to Use Crutches, How To Perform RICE (Rest, Ice, Compress, Elevate), How to Apply an Stewart Wrap, DI for Ankle Pain, DI for Foot Sprain Additional Instructions: *weight bearing as tolerated *RICE, Rest the extremity, Ice 15-20 minutes 3-4 times daily, Compress- wear the stewart wrap as discussed as much as possible to help reduce swelling and pain, Elevate the extremity when at rest *Stewart wrap is for support and help control swelling, use it except in the shower. Be sure that is not to tight but not to loose either *Elevate when resting *Ibuprofen every 6-8 hours as needed for pain an inflammation. If need something more can take Tylenol in between doses of Ibuprofen to help Immediately follow up with your family doctor for new or worsening of symptoms, or no noticeable improvement over the next 3-5 days Call back to [facility] later this evening for the official reading of your xray Follow up with Family doctor if no improvement or any worsening of symptoms Follow up with Dr Stevens if no improvement or any worsening of symptoms Return if needed Straight to ER if any life threatening symptoms Referrals: Maria Isabel Garrido PA [Primary Care Provider] - As needed Clarisa Stevens DPM [Staff Physician] - As needed Forms: Work/School Release Time of Disposition: 17:14 Medical Decision Making - Dionisio Inquiry Pt receiving controlled substance: No Dionisio was queried for this patient: No Vital Signs: 05/12/20 16:20 05/12/20 17:19 Temperature 98.1 F 98.1 F Temperature Source Oral Pulse Rate 88 Pulse Rate [Right Brachial] 88 Respiratory Rate 19 19 Blood Pressure 141/86 H Blood Pressure [Right Arm] 141/86 H Blood Pressure Mean [Right Arm] 104 Blood Pressure Source [Right Arm] Automatic Cuff Blood Pressure Position [Right Arm] Sitting 02 Sat by Pulse Oximetry 99 Oxygen Delivery Method Room Air - Radiology Data #1 Image(s): Ankle (left), Foot/Toes (left) Image Reviewed: Yes I reviewed the patient's radiology image Preliminary Findings: No Fracture Seen [facility] [place] HPI - General Stated complaint: L foot pain Time Seen by Provider: 05/12/20 17:08 Mode of Arrival: Ambulatory Source of Information: Patient Limitations: No Limitations Description of Symptoms (Recalled from Triage Doc. by RN): PATIENT C/O LEFT FOOT AND ANKLE PAIN SINCE LAST NIGHT. STATES SHE CANNOT PUT PRESSURE ON IT HEENT Symptoms (Recalled from RN notes): No Resp Symptoms (Recalled from RN notes): No Skin Symptoms (Recalled from RN notes): No MS Symptoms (Recalled from RN notes): Yes Functional Status (Recalled from RN notes): WNL - History of Present Illness Provider Complaint: Patient states that she has been having pain in her left foot that shoots pain up into her ankle and hurts when she tries to stand on it States that she didnt remember doing anything to it just pain shot throught her foot when she got out of bed - Related Data Home Medications Medication Instructions Recorded Confirmed Ibuprofen [Ibuprofen 600mg 600 mg PO Q6HP PRN 05/07/20 05/09/20 Tablet] Previous Rx's Medication Instructions Recorded methylPREDNISolone [Medrol] 4 mg PO DIRECTED 6 Days #21 05/07/20 tab.ds.pk hydroxyzine pamoate 25 mg capsule 25 mg PO TID PRN #60 cap 05/09/20 Allergies Allergy/AdvReac Type Severity Reaction Status Date / Time adhesive tape AdvReac Intermediate Verified 05/09/20 13:25 - Worker's Comp Is this a Worker's Comp case?: No [facility] History - Hepatitis A Screen Drug use history?: No High risk sexual behaviors?: No History of sexually transmitted infection?: No Currently employed?: No Childcare worker?: No Do you have indoor plumbing?: Yes Do you damian
[2020-05-12 17:19] VITALS: BP 141/86; PULSE 88; RESP 19; TEMP 36.7; O2SAT 99
== END 2020-05-12 17:23 | disposition home or self-care (01) ==
PROVIDERS: Emergency Provider Nurse Practitioner; PCP Physician Assistant
DX: S93.602A Unspecified sprain of left foot, initial encounter (principal); X50.1XXA Overexertion from prolonged static or awkward postures, initial encounter; J45.909 Unspecified asthma, uncomplicated; E11.9 Type 2 diabetes mellitus without complications; K21.9 Gastro-esophageal reflux disease without esophagitis; I10 Essential (primary) hypertension; G43.709 Chronic migraine without aura, not intractable, without status migrainosus; F17.210 Nicotine dependence, cigarettes, uncomplicated
CPT/HCPCS: 73610; 73630; 99201

== ENCOUNTER 2020-05-25 13:46 | Outpatient (RCR) | payer MEDICAID, SELFPAY | END 2020-05-25 14:49 | disposition home or self-care (01) | LOC: PT 13:46 | PROVIDERS: Visit Provider Nurse Practitioner Family | DX: M54.9 Dorsalgia, unspecified (principal) | CPT/HCPCS: 97163 ==

== ENCOUNTER → 2020-05-25 15:28 | Outpatient (CLI) | payer MEDICAID, SELFPAY ==
--- NOTE | 2020-05-25 15:31 | CA_ITS ---
APPROVED REPORT Left Lower Extremity Venous Study for DVT. Timber Rider: SHAKIRA Indications Lower Extremity Pain: Left Current Smoker positive homans. Patient states she has a left foot fracture. This fracture happened a few weeks ago. She presents in a boot. Risk Factors Obesity Vein Imaging CFV (L): compressive, spontaneous, phasic, augmentation FEM (L): compressive, spontaneous, phasic, augmentation POP (L): compressive, spontaneous, phasic, augmentation PTV (L): Compressible GSV (L): compressive, spontaneous, phasic, augmentation SSV (L): Compressible Peroneals (L):Compressible GAS (L): Compressible Findings No evidence of DVT or superficial thrombophlebitis in the veins scanned of the left lower extremity. Conclusion No evidence of DVT or superficial thrombophlebitis in the veins scanned of the left lower extremity. Electronically signed by : Troy Owen MD 05/25/2020 16:12:27
== END ==
PROVIDERS: PCP Physician Assistant; Visit Provider Nurse Practitioner Family
DX: M79.662 Pain in left lower leg (principal)
CPT/HCPCS: 93971

== ENCOUNTER 2020-06-06 16:44 | Emergency (ER) | payer MEDICAID, SELFPAY ==
[2020-06-06 17:03] VITALS: BP 144/94; PULSE 87; RESP 19; TEMP 36.6; O2SAT 98; BMI 33.0
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
[2020-06-06 17:28] VITALS: BP 144/94; PULSE 87; RESP 19; TEMP 36.6; O2SAT 98
== END 2020-06-06 17:30 | disposition home or self-care (01) ==
PROVIDERS: Emergency Provider Nurse Practitioner; PCP Physician Assistant
DX: H66.91 Otitis media, unspecified, right ear (principal); J45.909 Unspecified asthma, uncomplicated; E11.9 Type 2 diabetes mellitus without complications; K21.9 Gastro-esophageal reflux disease without esophagitis; I10 Essential (primary) hypertension; G43.709 Chronic migraine without aura, not intractable, without status migrainosus; F17.210 Nicotine dependence, cigarettes, uncomplicated
CPT/HCPCS: 99201

== ENCOUNTER 2020-06-27 18:01 | Emergency (ER) | payer MEDICAID, SELFPAY ==
[2020-06-27 18:01] VITALS: BP 125/92; PULSE 92; RESP 12; TEMP 37.2; O2SAT 95; BMI 33.0
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
[2020-06-27 18:40] LABS: UTC Pregnancy Test, Urine Negative (Negative)
[2020-06-27 18:50] VITALS: BP 125/93; PULSE 92; RESP 12; TEMP 37.2; O2SAT 95
== END 2020-06-27 18:51 | disposition home or self-care (01) ==
PROVIDERS: Emergency Provider Nurse Practitioner Family; PCP Physician Assistant
DX: Z20.828 Contact with and (suspected) exposure to other viral communicable diseases (principal); J45.909 Unspecified asthma, uncomplicated; E11.9 Type 2 diabetes mellitus without complications; K21.9 Gastro-esophageal reflux disease without esophagitis; I10 Essential (primary) hypertension; G43.709 Chronic migraine without aura, not intractable, without status migrainosus
CPT/HCPCS: 81025; 99202; U0003

== ENCOUNTER 2020-07-06 10:49 | Emergency (ER) | payer MEDICAID, SELFPAY ==
[2020-07-06 11:05] VITALS: BP 143/94; PULSE 89; RESP 20; TEMP 36.9; O2SAT 98; BMI 33.0
--- NOTE | 2020-07-06 11:07 | XR_ITS ---
PROCEDURE: XR KNEE RT 3V CLINICAL INDICATION: HIT KNEE ON PATRICIA FRAME COMPARISON: CR [id number] KNEE-3 VIEWS-RT from 05/31/2014 CR [id number] KNEE-4 OR 5 VIEWS-RT from 03/04/2017 CR [id number] KNEE-3 VIEWS-RT from 06/20/2017 CR [id number] XR knee RT 3V from 02/24/2018 FINDINGS: No fracture or dislocation. No lytic or blastic change. There is normal mineralization. The joint spaces are well-preserved. No significant degenerative/arthritic changes. No erosive changes evident. Other findings:None. IMPRESSION: No acute findings. Dictated by: Troy Owen MD 07/06/2020 13:03 Troy Owen MD in [place] 07/06/2020 13:03
--- NOTE | 2020-07-06 11:26 | HMH.EDUTC ---
[facility] [place] Disposition Clinical Impression: Contusion of left knee Qualifiers: Encounter type: initial encounter Qualified Code(s): S80.02XA - Contusion of left knee, initial encounter Disposition: Home, Self-Care Condition on Discharge: Good Instructions: DI for Knee Pain, How to Use a Knee Immobilizer Additional Instructions: Rest the extremity, apply ice for 15 minutes as tolerated three or four times per day, Elevate the extremity as tolerated while you are resting. Take ibuprofen for pain. I sent in a prescription for ibuprofen to your pharmacy. Follow up with Dr. Styles. I put in a referral but you need to call his office and schedule an appointment. Follow up with your regular doctor. GO TO THE ER FOR ANY WORSENING SYMPTOMS Prescriptions: Ibuprofen [Ibuprofen 600mg Tablet] 600 mg PO Q6HP PRN #30 tab PRN Reason: Mild Pain Transmission Status: Received by [facility] Referrals: Maria Isabel Garrido PA [Primary Care Provider] - Mandeep Styles MD [Staff Physician] - Time of Disposition: 11:53 Medical Decision Making - Medical Records Medical records reviewed: No: I reviewed the patient's medical records. - Dionisio Inquiry Pt receiving controlled substance: No Vital Signs: 07/06/20 11:05 07/06/20 11:59 Temperature 98.5 F 98.5 F Temperature Source Oral Pulse Rate 89 Pulse Rate [Right Brachial] 89 Respiratory Rate 20 20 Blood Pressure 143/94 H Blood Pressure [Right Arm] 143/94 H Blood Pressure Mean [Right Arm] 110 Blood Pressure Source [Right Arm] Automatic Cuff Blood Pressure Position [Right Arm] Sitting 02 Sat by Pulse Oximetry 98 Oxygen Delivery Method Room Air - Radiology Data #1 Image(s): Knee Image Reviewed: Yes I reviewed the patient's radiology image, Yes I have reviewed radiologist's interpretation PROCEDURE: XR KNEE RT 3V CLINICAL INDICATION: HIT KNEE ON PATRICIA FRAME COMPARISON: CR [id number] KNEE-3 VIEWS-RT from 05/31/2014 CR [id number] KNEE-4 OR 5 VIEWS-RT from 03/04/2017 CR [id number] KNEE-3 VIEWS-RT from 06/20/2017 CR [id number] XR knee RT 3V from 02/24/2018 FINDINGS: No fracture or dislocation. No lytic or blastic change. There is normal mineralization. The joint spaces are well-preserved. No significant degenerative/arthritic changes. No erosive changes evident. Other findings:None. IMPRESSION: No acute findings. Dictated by: Troy Owen MD 07/06/2020 13:03 Troy Owen MD in [place] 07/06/2020 13:03 [facility] [place] HPI - General Stated complaint: [id number] right knee pain,home Time Seen by Provider: 07/06/20 11:26 Mode of Arrival: Ambulatory Source of Information: Patient Limitations: No Limitations Description of Symptoms (Recalled from Triage Doc. by RN): PATIENT C/O RIGHT KNEE PAIN AND SWELLING. STATES SHE INJURED IT WHEN SHE HIT IT ON A DOOR FRAME AT HOME LAST NIGHT HEENT Symptoms (Recalled from RN notes): No Resp Symptoms (Recalled from RN notes): No Skin Symptoms (Recalled from RN notes): No MS Symptoms (Recalled from RN notes): No Functional Status (Recalled from RN notes): WNL - History of Present Illness Provider Complaint: She states that she ran into a door jamb at her home yesteday with her right knee. Since then she has had left knee pain that is worse with walking and bearing weight. She denies that the knee is unstable or that it goes out on her. - Related Data Previous Rx's Medication Instructions Recorded Ibuprofen [Ibuprofen 600mg 600 mg PO Q6HP PRN #30 tab 07/06/20 Tablet] Allergies Allergy/AdvReac Type Severity Reaction Status Date / Time adhesive tape AdvReac Intermediate Verified 06/19/20 08:38 - Worker's Comp Is this a Worker's Comp case?: No [facility] History - Hepatitis A Screen Drug use history?: No High risk sexual behaviors?: No History of sexually transmitted infection?: No Currently employed?: No Childcare worker?: No Do you have indoor plumbi
[2020-07-06 11:59] VITALS: BP 143/94; PULSE 89; RESP 20; TEMP 36.9; O2SAT 98
== END 2020-07-06 12:05 | disposition home or self-care (01) ==
PROVIDERS: Emergency Provider Nurse Practitioner Family; PCP Physician Assistant
DX: S80.02XA Contusion of left knee, initial encounter (principal); W22.09XA Striking against other stationary object, initial encounter; Y92.019 Unspecified place in single-family (private) house as the place of occurrence of the external cause; K21.9 Gastro-esophageal reflux disease without esophagitis; I10 Essential (primary) hypertension; G43.709 Chronic migraine without aura, not intractable, without status migrainosus; F17.210 Nicotine dependence, cigarettes, uncomplicated
CPT/HCPCS: 29505; 73562; 99202

== ENCOUNTER 2020-07-13 07:19 | Emergency (ER) | payer MEDICAID, SELFPAY ==
[2020-07-13 07:20] VITALS: BP 146/88; PULSE 67; RESP 20; TEMP 36.6; O2SAT 98; BMI 35.9
--- NOTE | 2020-07-13 07:35 | XR_ITS ---
PROCEDURE: XR RIBS RT 2V CLINICAL INDICATION: pain COMPARISON: No exams were available for comparison FINDINGS: Multiple views of the right ribs show no obvious fracture. No lytic or blastic change. Consider follow-up volumetric CT with 3D reformats if pain persists Frontal view of the chest shows no acute finding IMPRESSION: No acute findings. Dictated by: Troy Owen MD 07/13/2020 08:44 Troy Owen MD in [place] 07/13/2020 08:44
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
[2020-07-13 08:32] VITALS: BP 132/85; PULSE 87; RESP 18; TEMP 36.7; O2SAT 99
== END 2020-07-13 08:35 | disposition home or self-care (01) ==
PROVIDERS: Emergency Provider Emergency Medicine; PCP Physician Assistant
DX: R07.89 Other chest pain (principal); R10.11 Right upper quadrant pain; I10 Essential (primary) hypertension; K21.9 Gastro-esophageal reflux disease without esophagitis; G43.709 Chronic migraine without aura, not intractable, without status migrainosus; F17.210 Nicotine dependence, cigarettes, uncomplicated
CPT/HCPCS: 71100; 99282

== ENCOUNTER → 2020-07-24 12:58 | Outpatient (CLI) | payer MEDICAID, SELFPAY ==
--- NOTE | 2020-07-24 13:03 | XR_ITS ---
PROCEDURE: XR KNEE RT 4V CLINICAL INDICATION: RT knee pain COMPARISON: CR [id number] KNEE-4 OR 5 VIEWS-RT from 03/04/2017 CR [id number] KNEE-3 VIEWS-RT from 06/20/2017 CR [id number] XR knee RT 3V from 02/24/2018 CR XR KNEE RT 3V from 07/06/2020 FINDINGS: No fracture or dislocation. No lytic or blastic change. There is normal mineralization. The joint spaces are well-preserved. No significant degenerative/arthritic changes. No erosive changes evident. Other findings:None. IMPRESSION: No acute findings. Dictated by: Troy Owen MD 07/24/2020 16:02 Troy Owen MD in [place] 07/24/2020 16:02
== END ==
PROVIDERS: PCP Physician Assistant; Visit Provider Orthopaedic Surgery
DX: M25.561 Pain in right knee (principal)
CPT/HCPCS: 73564

== ENCOUNTER 2020-08-30 13:00 | Outpatient (RCR) | payer MEDICAID, SELFPAY | END 2020-08-30 13:05 | disposition home or self-care (01) | LOC: PT 13:00 | PROVIDERS: PCP Physician Assistant; Visit Provider Orthopaedic Surgery Adult Reconstructive Orthopaedic Surgery | DX: M54.2 Cervicalgia (principal); M54.5 Low back pain | CPT/HCPCS: 97010; 97014; 97110; 97140; 97163; G0283 ==

== ENCOUNTER → 2020-09-06 16:05 | Outpatient (CLI) | payer MEDICAID, SELFPAY ==
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
== END ==
PROVIDERS: PCP Physician Assistant; Visit Provider Orthopaedic Surgery Adult Reconstructive Orthopaedic Surgery
DX: M54.2 Cervicalgia (principal); M54.5 Low back pain
CPT/HCPCS: 72141; 72148; 76376

== ENCOUNTER → 2020-09-11 09:37 | Outpatient (CLI) | payer MEDICAID, SELFPAY ==
[2020-09-11 10:36] LABS: Alanine Aminotransferase 17 U/L (12-78); Albumin Level 4.3 g/dl (3.5-5.0); Alkaline Phosphatase 45 U/L (38-126); Anion Gap 12.9 mEq/L (5-15); Aspartate Amino Transferase 23 U/L (14-36); Bilirubin,Direct 0.2 mg/dl (0.0-0.4); Bilirubin,Indirect 0.4 mg/dL (0.0-0.9); Bilirubin,Total 0.6 mg/dl (0.2-1.3); Bilirubin,Unconjugated 0.4 mg/dL (0.0-1.1); Blood Urea Nitrogen 15 mg/dl (7-17); Calcium 9.9 mg/dl (8.4-10.2); Carbon Dioxide 24 mmol/L (22.0-30.0); Chloride 105 mmol/L (98-107); Estimated Glomerular Filt Rate 104 ml/min (>60); GFR (African American) 125 ML/MIN (>60); Glucose 108 mg/dl (74-100); Potassium 4.9 mmoL/L (3.5-5.1); Sodium 137 mmol/L (136-145); Total Protein,Serum 7.5 g/dl (6.3-8.2)
[2020-09-11 10:40] LABS: Basophils # 0.1 K/mm3 (0-0.2); Basophils % 0.8 % (0.1-2.0); Eosinophils # 0.1 K/mm3 (0.0-0.4); Eosinophils % 2.2 % (0.1-12.0); Hematocrit 43.2 % (37.0-47.0); Hemoglobin 14.5 g/dL (12.2-16.2); Lymphocytes # 2.9 K/mm3 (0.7-4.5); Lymphocytes % 43.3 % (10-50); Mean Corpuscular HGB Conc 33.4 g/dL (31.8-35.4); Mean Corpuscular Hemoglobin 30.6 pg (27.0-31.2); Mean Corpuscular Volume 91.5 fl (81-99); Mean Platelet Volume 8.1 fl (7.4-10.4); Monocytes # 0.4 K/mm3 (0.1-1.0); Monocytes % 6.5 % (1.7-9.3); Neutrophils # 3.2 K/mm3 (1.8-7.8); Neutrophils % 47.2 % (37.0-80.0); Platelet Count 240 K/mm3 (142-424); Red Blood Count 4.73 M/mm3 (4.20-5.40); Red Cell Distribution Width 13.7 % (11.5-17.5); White Blood Count 6.7 K/mm3 (4.8-10.8)
[2020-09-11 11:03] LABS: Troponin I < 0.01 ng/ml (0.00-0.034)
[2020-09-11 17:22] LABS: Free T4 (Free Thyroxine) 1.14 ng/dl (0.78-2.19)
== END ==
PROVIDERS: Visit Provider Nurse Practitioner Family
DX: R07.9 Chest pain, unspecified (principal); R06.09 Other forms of dyspnea; I10 Essential (primary) hypertension; E66.9 Obesity, unspecified; R53.83 Other fatigue; F17.200 Nicotine dependence, unspecified, uncomplicated; G47.33 Obstructive sleep apnea (adult) (pediatric)
CPT/HCPCS: 36415; 80048; 80076; 84439; 84443; 84484; 85025

== ENCOUNTER → 2020-09-13 14:29 | Outpatient (CLI) | payer MEDICAID, SELFPAY ==
--- NOTE | 2020-09-13 14:29 | CA_ITS ---
APPROVED REPORT EXAM: Comprehensive 2D, Doppler, and color-flow Echocardiogram Boiler Coverer Helper: KRYSTIAN CHINCHILLA Ht: 5 ft 10 in Wt: 279lbs BSA: 2.40 BP: 144/73 mmHg Indications: CP, SOA, HX-DVT, HX-GERD, MURMUR 2D Dimensions IVSd 0.74 cm LVEF (Visual) 60.90 % PWd 0.76 cm LVDd 5.49 cm LVDs 3.68 cm Aortic Root 2.44 cm Left Atrium 3.53 cm LVOT 1.88 cm (M/F) 1.5-2.5 M-Mode Dimensions LA Diam 3.66 cm (1.9-4.0) LVDd 5.67 cm (3.5-5.7) Ao Diam 2.76 cm (2.0-3.7) LVDs 3.95 cm (3.5-5.7) IVSd 0.93 cm (0.6-1.1) EF (Teich) 57.10% EPSs 0.36 cm FS 30.30% EDV (Teich) 158.10 mL TAPSE 2.06 (<1.7) ESV (Teich) 67.90 mL LV Diastology E Decel Time 233.00 (160-240 msec) E/A Ratio 1.40 MED E' 9.70 (< 7 cm/sec) MED A' 7.30 cm/s E'/MED E' Ratio 9.10 (>14) LAT E' 15.30 (<10 cm/sec) LAT A' 7.20 cm/s E/LAT E' Ratio 5.77 (>14) Aortic Valve AO Peak GR. 9.20 mmHg Mitral Valve MV A Velocity 63.00 (40-130 cm/s) E/A Ratio 1.40 MV Decel. Time 233.00 (160-240 ms) Tricuspid Valve TR P. Velocity 242.00 cm/s RAP Estimate 10.00 mmHg RVSP 33.40 mmHg Left Ventricle Left atrium is normal size, left ventricle is normal size, there is no concentric left ventricular hypertrophy, visually estimated ejection fraction 55% with no regional wall motion abnormality. Diastolic parameters are within normal range. Right Ventricle Right atrium and right ventricle are normal size and contractility. Aortic Valve Aortic valve is normal, there is no aortic stenosis or aortic insufficiency. Mitral Valve Mitral valve is normal, there is trace mitral regurgitation. Tricuspid Valve Tricuspid valve is grossly normal, there is trace tricuspid regurgitation, tricuspid regurgitation jet velocity is inadequate for calculation of the right ventricular systolic pressure. Pulmonic Valve Pulmonic valve is poorly visualized. Great Vessels Aortic root is normal size. Pericardium No significant pericardial effusion noted. Conclusion 1. Normal left ventricular size, preserved left ventricular systolic function, visually estimated ejection fraction 55% with no regional wall motion abnormality, diastolic parameters are within normal range. 2. Trace mitral and tricuspid regurgitation. 3. No significant pericardial effusion noted. Electronically signed by : Jose Mccoy, 09/14/2020 15:14:34
--- NOTE | 2020-09-13 14:29 | CA_ITS ---
APPROVED REPORT Exam: Exercise Treadmill Technologist: Marci Mendez Ht: 5 ft 10 in Wt: 279 lbs BSA: 2.40 m2 HR: 76 bpm BP: 131/83 mmHg Indications: Shortness of Air, chest pain Stress Test Details Test: Abhi HR Resting HR: 86 bpm Max Heart Rate (APMHR): 197 bpm Max HR Achieved: 172 bpm Target HR (85% APMHR): 167 bpm % of APMHR: 87 Recovery HR: 89 bpm BP Resting BP: 131.0/83.0 mmHg Max BP: 180.0/90.0 mmHg Recovery BP: 139.0/91.0 mmHg ECG Resting ECG: Normal sinus rhythm Clinical Exercise duration: 06:18 min Highest Stage Achieved: Exercise capacity: 7.0 METs Stress ECG Conclusion Patient exercised 6:18 on Abhi Protocol. Test stopped due to shortness of air, fatigue. Symptoms: Sharp, stabbing chest pain during and after exercise. Arrhythmias/Ectopy: None ST-T Changes: NS ST-T changes inferiorly. Otherwise normal ST response to exercise. Conclusion: Probably normal GXT. GXT only (no imaging). Test Summary REST . . . . . . . Sitting REST . . . . . . . Standing REST 02:41 0.0 0.0 86 . 131/ 83 . . Stage 1 01:00 10.0 1.7 114 . . . . Stage 1 02:00 10.0 1.7 126 . . . . Stage 1 03:00 10.0 1.7 132 . 168/ 90 . . Stage 2 01:00 12.0 2.5 147 . . . . Stage 2 . . . . . . . Chest pain Stage 2 02:00 12.0 2.5 158 . . . . Stage 2 03:00 12.0 2.5 167 . 170/ 85 . . Stage 3 00:18 14.0 3.4 171 . . . Stop exercise at 06:18 RECOVERY 01:00 0.0 0.0 141 . 180/ 90 . . RECOVERY 02:00 0.0 0.0 115 . 180/ 90 . . RECOVERY 03:00 0.0 0.0 97 . 156/ 84 . . RECOVERY 04:00 0.0 0.0 100 . 156/ 84 . . RECOVERY 05:00 0.0 0.0 90 . 156/ 84 . . RECOVERY 05:41 0.0 0.0 90 . 139/ 91 . . Electronically signed by : Jose Mccoy, 09/14/2020 10:41:40
== END ==
PROVIDERS: PCP Physician Assistant; Visit Provider Nurse Practitioner Family
DX: R07.9 Chest pain, unspecified (principal); R06.09 Other forms of dyspnea; I10 Essential (primary) hypertension; R53.83 Other fatigue; E66.9 Obesity, unspecified; F17.200 Nicotine dependence, unspecified, uncomplicated; G47.33 Obstructive sleep apnea (adult) (pediatric)
CPT/HCPCS: 93017; 93306

== ENCOUNTER 2020-10-30 22:53 | Emergency (ER) | payer MEDICAID, SELFPAY ==
[2020-10-30 22:54] VITALS: BP 142/93; PULSE 85; RESP 16; TEMP 37.1; O2SAT 96; BMI 33.0
--- NOTE | 2020-10-30 23:39 | XR_ITS ---
PROCEDURE: XR THORACIC SPINE 3V CLINICAL INDICATION: fall Pain COMPARISON: CR CXR CHEST(2 VIEWS-NOT PORTABLE) from 08/20/2016 FINDINGS: No fracture or dislocation. No lytic or blastic change. There is normal mineralization. There are mild degenerative changes in the mid to upper thoracic spine with mild kyphosis. Other findings:None. IMPRESSION: No acute findings. Dictated by: Troy Owen MD 10/31/2020 06:46 Troy Owen MD in [place] 10/31/2020 06:46
--- NOTE | 2020-10-30 23:39 | XR_ITS ---
PROCEDURE: XR PELVIS 1-2V CLINICAL INDICATION: fall Pain COMPARISON: CR HIPCMLT XR hip LT 2-3V w/pelvis from 10/01/2018 TECHNIQUE: XR Pelvis AP View FINDINGS: No fracture or dislocation is evident. No significant degenerative change. No lytic or blastic change. IMPRESSION: No acute findings. Dictated by: Troy Owen MD 10/31/2020 06:44 Troy Owen MD in [place] 10/31/2020 06:44
--- NOTE | 2020-10-30 23:39 | XR_ITS ---
PROCEDURE: XR SACRUM COCCYX MIN 2V CLINICAL INDICATION: fall Pain COMPARISON: CT CT ABDOMEN PELVIS WO CON from 04/17/2019 FINDINGS: No fracture or dislocation. 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 IMPRESSION: No acute findings. Dictated by: Troy Owen MD 10/31/2020 06:48 Troy Owen MD in [place] 10/31/2020 06:48
--- NOTE | 2020-10-30 23:39 | XR_ITS ---
PROCEDURE: XR LUMBAR SPINE MIN 4V CLINICAL INDICATION: fall Pain COMPARISON: No exams were available for comparison FINDINGS: No fracture or dislocation. No lytic or blastic change. There is normal mineralization. The joint spaces are well-preserved. No significant degenerative/arthritic changes. No erosive changes evident. 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 Dictated by: Troy Oewn MD 10/31/2020 06:43 Troy Owen MD in [place] 10/31/2020 06:43
--- NOTE | 2020-10-30 23:39 | XR_ITS ---
PROCEDURE: XR CHEST 2V CLINICAL HISTORY: fall Pain following injury COMPARISON: CR XR CHEST 2V from 09/01/2019 CR XR CHEST 2V from 02/25/2020 CR XR RIBS BI MIN 4V W CXR1V from 05/07/2020 FINDINGS: The cardiomediastinal silhouette and pulmonary vascularity are within normal limits. The lungs are clear without infiltrates, suspicious nodules, or pleural effusions. No acute bony abnormalities. IMPRESSION: No acute findings. Dictated by: Troy Owen MD 10/31/2020 06:43 Troy Owen MD in [place] 10/31/2020 06:43
--- NOTE | 2020-10-30 23:47 | HMH.EDFALL ---
ED Disposition Clinical Impression: Cervical strain, acute Qualifiers: Encounter type: initial encounter Qualified Code(s): S16.1XXA - Strain of muscle, fascia and tendon at neck level, initial encounter Lumbar back sprain Qualifiers: Encounter type: initial encounter Qualified Code(s): S33.5XXA - Sprain of ligaments of lumbar spine, initial encounter Disposition: Home, Self-Care Condition on Discharge: Good Instructions: DI for Low Back Pain Additional Instructions: ice and call pcp for follo wup Referrals: Maria Isabel Garrido PA [Primary Care Provider] - - Critical Care Critical Care Time: No Attestation: On 10/30/20, the high probability of a clinically significant, sudden or life threatening deterioration of the following system(s) required my full and direct attention, intervention and personal management. The time I documented below is in addition to time spent performing reported procedures but includes the following listed in this critical care notation. Medical Decision Making - Medical Records Medical records reviewed: Yes: I reviewed the patient's medical records. - Dionisio Inquiry Pt receiving controlled substance: No Vital Signs: 10/30/20 22:54 Temperature 98.7 F Temperature Source Oral Pulse Rate [Right Radial] 85 Respiratory Rate 16 Blood Pressure [Right Arm] 142/93 H Blood Pressure Mean [Right Arm] 109 Blood Pressure Source [Right Arm] Automatic Cuff Blood Pressure Position [Right Arm] Supine 02 Sat by Pulse Oximetry 96 Oxygen Delivery Method Room Air - Lab Data Lab results reviewed: Yes: I reviewed the patient's lab results. Lab Results 10/30/20 23:30: Urine HCG, Qual Negative Orders (Tests/Meds): ED MEDICATIONS Discontinued Medications Generic Name Dose Route Start Last Admin Trade Name Rosalva PRN Reason Stop Dose Admin Dexamethasone Sodium Phosphate 8 mg 10/31/20 00:29 10/31/20 01:07 Dexamethasone 4mg/Ml 1ml Vial IM 10/31/20 00:30 8 mg ONCE ONE Administration Ketorolac Tromethamine 60 mg 10/31/20 00:29 10/31/20 01:07 Ketorolac 60mg/2ml Vial IM 10/31/20 00:30 60 mg ONCE ONE Administration ORDERS Category Date Time Status CT cervical spine wo con Stat Cat Scan 10/31/20 00:13 Taken XR chest 2V Stat Exams 10/30/20 23:39 Taken XR lumbar spine min 4V Stat Exams 10/30/20 23:39 Taken XR pelvis 1-2V Stat Exams 10/30/20 23:39 Taken XR sacrum coccyx min 2V Stat Exams 10/30/20 23:39 Taken XR thoracic spine 3V Stat Exams 10/30/20 23:39 Taken - Radiology Data #1 Image(s): Chest, T-Spine, L-Spine, Pelvis Image Reviewed: Yes I reviewed the patient's radiology image Preliminary Findings: No Fracture Seen - CT Data CT Scan: C-Spine Time Received: 01:[address] Reviewed: Yes: I have viewed the radiologist's interpretation Preliminary Findings: No Fracture Seen Medical Decision Narrative: no loc and will f/u with pcp Fall HPI - General Chief Complaint: Fall Stated Complaint: AO fall injured back hips and neck 2144 Time Seen by Provider: 10/30/20 23:15 Mode of Arrival: Ambulatory Source of Information: Patient, Medical Record Limitations: No Limitations Description of Symptoms (Recalled from ER Triage Doc. by RN): Pt reports slipping on ice and landing on her back. Denies LOC or hitting head. Pt c/o pain in back, hips, and neck. - History of Present Illness HPI Narrative: fell on ice with back and neck injury- no loc MD complaint: fall Onset (ago): hour(s) Fall from: walking Fall witnessed: yes, by family Place fall occurred: home Loss of consciousness: none Prolonged down time: no Context: tripped/slipped Location of injury: head, neck, back Severity: moderate Associated symptoms (after fall): denies - Related Data Previous Rx's Medication Instructions Recorded bisoprolol fumarate 5 mg tablet 5 mg PO DAILY #30 tab 10/11/20 Allergies Allergy/AdvReac Type Severity Reaction Status Date / Time a
[2020-10-30 23:53] LABS: Urine Pregnancy, HCG Qual. Negative (Negative)
--- NOTE | 2020-10-31 00:13 | CT_ITS ---
PROCEDURE: CT CERVICAL SPINE WO CON CLINICAL INDICATION: fall Neck injury with pain, contusion/abrasion or hematoma, cervical sprain/strain the COMPARISON: No exams were available for comparison TECHNIQUE: Axial images obtained with sagittal and coronal reformats. All CT scans at the facility use one or more dose reduction, viz: automated exposure control, ma/kV adjustment per patient size (including targeted exams where dose is matched to indication, i.e. head), or iterative reconstruction technique. Axial spiral CT scanning performed of the cervical spine beginning at the base of the skull and continuing to the upper T-spine. 3-D multiplanar reconstruction with 3-D manipulation of volumetric data set in image rendering was completed by the radiologist and/or technologist with the supervision of the radiologist on independent workstation. FINDINGS: No fracture nor subluxation is evident. Normal prevertebral soft tissues. Facets, neural foramen and vertebral bodies intact and unremarkable. Normal C1/C2 relationships. Apices of lungs are clear with no acute findings. There is asymmetric prominence of the soft tissues in the left nasopharyngeal region/adenoid area. Mildly prominent palatine tonsils. IMPRESSION: Cervical spine intact with no fracture nor subluxation. Mildly prominent soft tissues in the left nasopharyngeal/adenoid area at mildly prominent palatine tonsils . Dictated by: Troy wOen MD 10/31/2020 06:34 Troy Owen MD in [place] 10/31/2020 06:34
[2020-10-31 00:25] VITALS: BP 135/84; PULSE 82; RESP 16; O2SAT 97
[2020-10-31 01:37] VITALS: BP 142/69; PULSE 75; RESP 16; TEMP 36.6; O2SAT 97
== END 2020-10-31 01:49 | disposition home or self-care (01) ==
PROVIDERS: Emergency Provider Emergency Medicine; PCP Physician Assistant
DX: S16.1XXA Strain of muscle, fascia and tendon at neck level, initial encounter (principal); S33.5XXA Sprain of ligaments of lumbar spine, initial encounter; J45.909 Unspecified asthma, uncomplicated; E11.9 Type 2 diabetes mellitus without complications; K21.9 Gastro-esophageal reflux disease without esophagitis; I10 Essential (primary) hypertension; G43.709 Chronic migraine without aura, not intractable, without status migrainosus; W00.0XXA Fall on same level due to ice and snow, initial encounter; Y92.018 Other place in single-family (private) house as the place of occurrence of the external cause
CPT/HCPCS: 71046; 72072; 72110; 72125; 72170; 72220; 81025; 96372; 99283

== ENCOUNTER 2020-11-26 15:38 | Emergency (ER) | payer MEDICAID, SELFPAY ==
[2020-11-26 16:00] VITALS: PULSE 79; RESP 18; TEMP 36.6; O2SAT 100; BMI 41.5
--- NOTE | 2020-11-26 16:34 | HMH.EDUTC ---
[facility] [place]ression: Nausea vomiting and diarrhea Disposition: Home, Self-Care Condition on Discharge: Good Instructions: Diarrhea, Nausea and Vomiting-Adult, Promethazine Additional Instructions: ? Avoid fruit juices, as these do not replace minerals and can actually increase diarrhea. ? Children and adults can use sports drinks to replenish electrolytes. Younger children and infants should use products formulated for children, like oral rehydration solutions. ? Eat food in small amounts and let your stomach recover. ? Get lots of rest. You may feel tired or weak. ? No greasy or fried foods for the next 24-48 hours BRAT diet Bananas Rice Apples and [place] ? Make sure to drink plenty of liquids ? Return if needed ? Straight to ER if any life threatening symptoms ? Follow up with family doctor in the next 48-72 hours if no improvement or any worsening of symptoms Make sure to follow up with OBGYN or your Family Doctor if no improvement or any worsening of symptoms Return if needed Straight to ER if any life threatening symptoms Prescriptions: Promethazine HCl [Phenergan 12.5mg tablet] 12.5 mg PO Q8H PRN #6 tab PRN Reason: Nausea Transmission Status: Received by [id number] Referrals: Maria Isabel Garrido PA [Primary Care Provider] - As needed Forms: Work/School Release Time of Disposition: 16:39 Medical Decision Making - Dionisio Inquiry Pt receiving controlled substance: No Dionisio was queried for this patient: No Vital Signs: 11/26/20 16:00 11/26/20 16:40 Temperature 97.8 F 97.8 F Temperature Source Oral Pulse Rate 79 Pulse Rate [Right] 79 Respiratory Rate 18 18 Blood Pressure 00/00 L 02 Sat by Pulse Oximetry 100 Oxygen Delivery Method Room Air Medical Decision Narrative: Spoke with pharmacy about medication due to for vomiting, advised ok for Phenergan 12.5mg in first trimester [facility] [place] - General Stated complaint: vomiting,diarrhea Time Seen by Provider: 11/26/20 16:34 Mode of Arrival: Ambulatory Source of Information: Patient Limitations: No Limitations Description of Symptoms (Recalled from Triage Doc. by RN): PATIENT C/O DIARRHEA, VOMITING, STOMACH ACHE, HOT FLASHES AND WHEEZING SINCE LAST NIGHT HEENT Symptoms (Recalled from RN notes): No Resp Symptoms (Recalled from RN notes): No Skin Symptoms (Recalled from RN notes): No MS Symptoms (Recalled from RN notes): No Functional Status (Recalled from RN notes): WNL - History of Present Illness Provider Complaint: Patient states that she thinks she is having a stomach bug States that she has been having nausea vomiting and diarrhea and felt like she was a little wheezy last night States that today she was still having some upset stomach Denies pain but reports nausea States that she just found out she is and not sure if that is causing nausea - Related Data Previous Rx's Medication Instructions Recorded bisoprolol fumarate 5 mg tablet 5 mg PO DAILY #30 tab 10/11/20 Promethazine HCl [Phenergan 12.5mg 12.5 mg PO Q8H PRN #6 tab 11/26/20 tablet] Allergies Allergy/AdvReac Type Severity Reaction Status Date / Time adhesive tape AdvReac Intermediate Verified 10/11/20 13:29 - Worker's Comp Is this a Worker's Comp case?: No [facility] History - Hepatitis A Screen Drug use history?: No High risk sexual behaviors?: No History of sexually transmitted infection?: No Currently employed?: No Childcare worker?: No Do you have indoor plumbing?: Yes Do you have electricity?: Yes Attestation statement:: This patient has been screened for Hepatitis A risk factors. I have reviewed the patient's past medical history: Yes Medical History: Reports:: Asthma, Deep Vein Thrombosis, Diabetes Mellitus Type 2, Gastroesophageal Reflux Disease(GERD), Hypertension, Migraine Denies:: Cancer, Diabetes Mellitus Type 1, Internal Pacemaker, MRSA, Seizures Other Medical History: Denies: Blood Transfusion Inez
[2020-11-26 16:40] VITALS: BP 00/00; PULSE 79; RESP 18; TEMP 36.6; O2SAT 100
== END 2020-11-26 16:47 | disposition home or self-care (01) ==
PROVIDERS: Emergency Provider Nurse Practitioner; PCP Physician Assistant
DX: R11.2 Nausea with vomiting, unspecified (principal); R19.7 Diarrhea, unspecified; K21.9 Gastro-esophageal reflux disease without esophagitis; I10 Essential (primary) hypertension; E11.9 Type 2 diabetes mellitus without complications; J45.909 Unspecified asthma, uncomplicated; F17.210 Nicotine dependence, cigarettes, uncomplicated
CPT/HCPCS: 99202; G0463

== ENCOUNTER 2020-12-05 16:12 | Emergency (ER) | payer MEDICAID, SELFPAY ==
[2020-12-05 16:50] VITALS: BP 135/87; PULSE 87; RESP 18; TEMP 36.9; O2SAT 94; BMI 38.0
--- NOTE | 2020-12-05 16:59 | HMH.EDUTC ---
[facility] [place] Impression: Blood pressure check Disposition: Home, Self-Care Condition on Discharge: Good Instructions: Recommendations to Help Prevent High Blood Pressure, High Blood Pressure (Hypertension) (Alternative Therapy) Additional Instructions: Make sure to follow up with your Family Doctor for further evaluation and treatment Make sure to make appointment with OBGYN for further evaluation Make sure to make appointment with Cardiology as instructed Return if needed Straight to ER if any life threatening symptoms Referrals: Maria Isabel Garrido PA [Primary Care Provider] - As needed Time of Disposition: 17:10 Medical Decision Making - Dionisio Inquiry Pt receiving controlled substance: No Dionisio was queried for this patient: No Vital Signs: 12/05/20 16:50 Temperature 98.4 F Temperature Source Oral Pulse Rate [Right Radial] 87 Respiratory Rate 18 Blood Pressure [Left Arm] 135/87 Blood Pressure Mean [Left Arm] 103 Blood Pressure Source [Left Arm] Automatic Cuff Blood Pressure Position [Left Arm] Sitting 02 Sat by Pulse Oximetry 94 L Oxygen Delivery Method Room Air Medical Decision Narrative: Patient educated on importance of making appointment with OBGYN, Cardiology and Family Doctor, who ever is prescribing her medication for her HTN and make sure to inform them that she is so they can get her on medication for her blood pressure that is safe during Blood pressure not grossly elevated at this time patient has on artificial nails and denies SOA Patient dc'd and recommended follow up [place] [facility] [place] - General Stated complaint: High blood pressure Time Seen by Provider: 12/05/20 16:59 Mode of Arrival: Ambulatory Source of Information: Patient Limitations: No Limitations Description of Symptoms (Recalled from Triage Doc. by RN): Pt reports was at the dentist to get a tooth pulled, states they took her bp and told her it was high and she needed to get seen by a Doctor before they could pull her tooth. Pt reports hx of high bp, states she has taken her bp medication today. HEENT Symptoms (Recalled from RN notes): No Resp Symptoms (Recalled from RN notes): No Skin Symptoms (Recalled from RN notes): No MS Symptoms (Recalled from RN notes): No Functional Status (Recalled from RN notes): n/a - History of Present Illness Provider Complaint: Patient states that she has a history of HTN States that she is also and has not seen her OBGYN States that she was at the Dentist this morning and they was 'tapping on her teeth and causing her dental pain State that she was hurting and they checked her blood pressure and it was elevated and they stopped working on her teeth and refused to fix/pull the tooth and wanted her to come and get her blood pressure rechecked State that she is unsure what she is taking for her blood pressure - Related Data Previous Rx's Medication Instructions Recorded bisoprolol fumarate 5 mg tablet 5 mg PO DAILY #30 tab 10/11/20 Promethazine HCl [Phenergan 12.5mg 12.5 mg PO Q8H PRN #6 tab 11/26/20 tablet] Allergies Allergy/AdvReac Type Severity Reaction Status Date / Time adhesive tape AdvReac Intermediate Verified 10/11/20 13:29 - Worker's Comp Is this a Worker's Comp case?: No [facility] History - Hepatitis A Screen Drug use history?: No High risk sexual behaviors?: No History of sexually transmitted infection?: No Currently employed?: No Childcare worker?: No Do you have indoor plumbing?: Yes Do you have electricity?: Yes Attestation statement:: This patient has been screened for Hepatitis A risk factors. I have reviewed the patient's past medical history: Yes Medical History: Reports:: Asthma, Deep Vein Thrombosis, Diabetes Mellitus Type 2, Gastroesophageal Reflux Disease(GERD), Hypertension, Migraine Denies:: Cancer, Diabetes Mellitus Type 1, Internal Pacemaker, MRSA, Seizures Other Medical History: Denies: Blood Transfu
[2020-12-05 17:10] VITALS: BP 135/87; PULSE 87; RESP 18; TEMP 36.9; O2SAT 94
== END 2020-12-05 17:15 | disposition home or self-care (01) ==
PROVIDERS: Emergency Provider Nurse Practitioner; PCP Physician Assistant
DX: I16.0 Hypertensive urgency (principal); K08.89 Other specified disorders of teeth and supporting structures; K21.9 Gastro-esophageal reflux disease without esophagitis; Z34.90 Encounter for supervision of normal pregnancy, unspecified, unspecified trimester; F17.210 Nicotine dependence, cigarettes, uncomplicated; E11.9 Type 2 diabetes mellitus without complications
CPT/HCPCS: 99202; G0463

== ENCOUNTER 2021-01-01 18:42 | Emergency (ER) | payer MEDICAID, SELFPAY ==
[2021-01-01 19:39] VITALS: BP 146/94; PULSE 91; RESP 19; TEMP 37; O2SAT 96; BMI 40.6
--- NOTE | 2021-01-01 19:45 | HMH.EDUTC ---
[facility] [place] Disposition Clinical Impression: Nausea & vomiting Qualifiers: Vomiting type: unspecified Vomiting Intractability: unspecified Qualified Code(s): R11.2 - Nausea with vomiting, unspecified Disposition: Home, Self-Care Condition on Discharge: Good Instructions: Diarrhea, Nausea and Vomiting-Adult, Promethazine Additional Instructions: Drink extra fluids with and between meals. If you have difficulty drinking, try very small amounts of water or suck on ice chips. ? Avoid fruit juices, as these do not replace minerals and can actually increase diarrhea. ? Children and adults can use sports drinks to replenish electrolytes. Younger children and infants should use products formulated for children, like oral rehydration solutions. ? Eat food in small amounts and let your stomach recover. ? Get lots of rest. You may feel tired or weak. ? No greasy or fried foods for the next 24-48 hours BRAT diet Bananas Rice Apples and [place] ? Make sure to drink plenty of liquids ? Return if needed ? Straight to ER if any life threatening symptoms ? Phenergan as prescribed ? You was given an outpatient order for diarrhea panel, please collect specimen and bring back to outpatient lab then call back to the [facility] or follow up with family doctor for results ? Follow up with family doctor in the next 48-72 hours if no improvement or any worsening of symptoms Prescriptions: Promethazine HCl [Phenergan 12.5mg tablet] 12.5 mg PO Q6H PRN #6 tab PRN Reason: Nausea Prescription Printed Referrals: Maria Isabel Garrido PA [Primary Care Provider] - Time of Disposition: 20:08 Medical Decision Making - Dionisio Inquiry Pt receiving controlled substance: No Dionisio was queried for this patient: No Vital Signs: 01/01/21 19:39 01/01/21 20:10 Temperature 98.6 F 98.6 F Temperature Source Oral Oral Pulse Rate 91 H Pulse Rate [Right Brachial] 91 H Respiratory Rate 19 19 Blood Pressure 146/94 H Blood Pressure [Right Arm] 146/94 H Blood Pressure Mean [Right Arm] 111 Blood Pressure Source Automatic Cuff Blood Pressure Source [Right Arm] Automatic Cuff Blood Pressure Position Sitting Blood Pressure Position [Right Arm] Sitting 02 Sat by Pulse Oximetry 96 Oxygen Delivery Method Room Air Room Air Medical Decision Narrative: Recommended UA patient advised that she could not urinate right now and did not think she had a UTI denies burning with urination or feeling of urgency and frequency Declined waiting to obtain UA Patient + medication discussed with pharmacy as to what is baby safe for patient to take in first trimester and Phenergan 12.5mg No vomiting or diarrhea since arrival [facility] [place] HPI - General Stated complaint: vomiting diarrhea, back pain Time Seen by Provider: 01/01/21 19:45 Mode of Arrival: Ambulatory Source of Information: Patient Limitations: No Limitations Description of Symptoms (Recalled from Triage Doc. by RN): VOMITING, BACK PAIN, DIARRHEA HEENT Symptoms (Recalled from RN notes): No Resp Symptoms (Recalled from RN notes): No Skin Symptoms (Recalled from RN notes): No MS Symptoms (Recalled from RN notes): No Functional Status (Recalled from RN notes): WNL - History of Present Illness Provider Complaint: Patient states that she is State that she has appointment with OB tomorrow States that she was recently around her neice that had stomach virus and has been having N/V/D State that also she is feeling achy in her lower back area but thinks that is from bending over the toilet vomiting State that her last episode of vomiting was around 2pm but has still been having diarrhea - Related Data Previous Rx's Medication Instructions Recorded bisoprolol fumarate 5 mg tablet 5 mg PO DAILY #30 tab 10/11/20 Promethazine HCl [Phenergan 12.5mg 12.5 mg PO Q8H PRN #6 tab 11/26/20 tablet] Promethazine HCl [Phenergan 12.5mg 12.5 mg PO Q6H PRN #6 tab 01/01/21 tablet] Allergies Allergy/AdvReac Type Severity
[2021-01-01 20:10] VITALS: BP 146/94; PULSE 91; RESP 19; TEMP 37; O2SAT 96
== END 2021-01-01 20:21 | disposition home or self-care (01) ==
PROVIDERS: Emergency Provider Nurse Practitioner; PCP Physician Assistant
DX: R11.2 Nausea with vomiting, unspecified (principal); M54.5 Low back pain; Z34.90 Encounter for supervision of normal pregnancy, unspecified, unspecified trimester; K21.9 Gastro-esophageal reflux disease without esophagitis; I10 Essential (primary) hypertension; E11.9 Type 2 diabetes mellitus without complications; J45.909 Unspecified asthma, uncomplicated; F17.210 Nicotine dependence, cigarettes, uncomplicated; Z79.899 Other long term (current) drug therapy
CPT/HCPCS: 99202; G0463

== ENCOUNTER 2021-02-18 19:44 | Emergency (ER) | payer MEDICAID, SELFPAY ==
[2021-02-18 19:45] VITALS: BP 143/89; PULSE 86; RESP 21; TEMP 36.8; O2SAT 98; BMI 46.7
--- NOTE | 2021-02-18 19:57 | XR_ITS ---
PROCEDURE INFORMATION: Exam: XR Left Ankle Exam date and time: 02/18/2021 7:57 PM Age: 25 years old Clinical indication: Injury or trauma; Sprain or strain; Patient HX: Patient twisted left ankle. She is . She signed consent form to proceed with exam. She was shielded with 2 full length lead aprons. ; Additional info: Twisted ankle TECHNIQUE: Imaging protocol: XR Left ankle. Views: 3 or more views. COMPARISON: CR XR ANKLE LT MIN 3V 05/12/2020 4:21 PM FINDINGS: Bones/joints: No fracture or dislocation. Small plantar calcaneal spur. Soft tissues: Normal. IMPRESSION: No acute findings.
--- NOTE | 2021-02-18 20:17 | HMH.EDUTC ---
[facility] [place] Clinical Impression: Ankle sprain Qualifiers: Encounter type: initial encounter Involved ligament of ankle: other ligament Laterality: left Qualified Code(s): S93.492A - Sprain of other ligament of left ankle, initial encounter Disposition: Home, Self-Care Condition on Discharge: Good Instructions: Ankle Sprain, DI for Ankle Sprain, How To Perform RICE (Rest, Ice, Compress, Elevate), How to Apply an Stewart Wrap Additional Instructions: *weight bearing as tolerated *RICE, Rest the extremity, Ice 15-20 minutes 3-4 times daily, Compress- wear the stewart wrap as discussed as much as possible to help reduce swelling and pain, Elevate the extremity when at rest *Stewart wrap is for support and help control swelling, use it except in the shower. Be sure that is not to tight but not to loose either *Elevate when resting *Tylenol as directed on package for pain if your OBGYN has said you can take it Immediately follow up with your family doctor for new or worsening of symptoms, or no noticeable improvement over the next 3-5 days Call back to the [facility] tomorrow for the official reading of your Xray by the Radiologist Follow up Dr Stevens if you continue to have pain or no improvement Referrals: Maria Isabel Garrido PA [Primary Care Provider] - As needed Clarisa Stevens DPM [Staff Physician] - Forms: Work/School Release Time of Disposition: 20:32 Medical Decision Making - Dionisio Inquiry Pt receiving controlled substance: No Dionisio was queried for this patient: No Vital Signs: 02/18/21 19:45 Temperature 98.3 F Temperature Source Oral Pulse Rate [Right Brachial] 86 Respiratory Rate 21 Blood Pressure [Right Arm] 143/89 H Blood Pressure Mean [Right Arm] 107 Blood Pressure Source [Right Arm] Automatic Cuff Blood Pressure Position [Right Arm] Sitting 02 Sat by Pulse Oximetry 98 Oxygen Delivery Method Room Air Orders (Tests/Meds): ORDERS Category Date Time Status XR ankle LT min 3V Stat Exams 02/18/21 19:57 Ordered - Radiology Data #1 Image(s): Ankle Image Reviewed: Yes I reviewed the patient's radiology image Preliminary Findings: No Fracture Seen [facility] [place] - General Stated complaint: twisted left ankle Time Seen by Provider: 02/18/21 20:17 Mode of Arrival: Ambulatory Source of Information: Patient, Significant Other Limitations: No Limitations Description of Symptoms (Recalled from Triage Doc. by RN): PATIENT STATES SHE TWISTED HER LEFT ANKLE AT 1915 TODAY HEENT Symptoms (Recalled from RN notes): No Resp Symptoms (Recalled from RN notes): No Skin Symptoms (Recalled from RN notes): No MS Symptoms (Recalled from RN notes): Yes Functional Status (Recalled from RN notes): WNL - History of Present Illness Provider Complaint: Patient states that she was walking through her yard earlier when she stepped in pothole and twisted her left ankle State that ever since she has been having pain in her left ankle when she walks on it and she was worried because she is so she came in to get it checked Denies falling and denies any other injury Patient reports that she 20wks OB - Related Data Home Medications Medication Instructions Recorded Confirmed bisoprolol fumarate 5 mg tablet 5 mg PO DAILY 01/12/21 01/12/21 Previous Rx's Medication Instructions Recorded Promethazine HCl [Phenergan 12.5mg 12.5 mg PO Q6H PRN #6 tab 01/01/21 tablet] amoxicillin 500 mg capsule 500 mg PO BID 10 Days #20 cap 01/12/21 Allergies Allergy/AdvReac Type Severity Reaction Status Date / Time adhesive tape AdvReac Intermediate Verified 01/12/21 11:21 - Worker's Comp Is this a Worker's Comp case?: No [facility] History - Hepatitis A Screen Drug use history?: No High risk sexual behaviors?: No History of sexually transmitted infection?: No Currently employed?: No Childcare worker?: No Do you have indoor plumbing?: Yes Do you have electricity?: Yes Attestation statement:: This patient has been
[2021-02-18 20:35] VITALS: BP 143/89; PULSE 86; RESP 21; TEMP 36.8; O2SAT 98
== END 2021-02-18 20:39 | disposition home or self-care (01) ==
PROVIDERS: Emergency Provider Nurse Practitioner; PCP Physician Assistant
DX: S93.492A Sprain of other ligament of left ankle, initial encounter (principal); Z3A.19 19 weeks gestation of pregnancy; W17.2XXA Fall into hole, initial encounter; Y92.017 Garden or yard in single-family (private) house as the place of occurrence of the external cause; E11.9 Type 2 diabetes mellitus without complications; K21.9 Gastro-esophageal reflux disease without esophagitis; I10 Essential (primary) hypertension; F17.210 Nicotine dependence, cigarettes, uncomplicated; G43.709 Chronic migraine without aura, not intractable, without status migrainosus
CPT/HCPCS: 73610; 99202; G0463

== ENCOUNTER → 2021-02-27 10:23 | Outpatient (CLI) | payer MEDICAID, SELFPAY | PROVIDERS: PCP Physician Assistant; Visit Provider Nurse Practitioner Family | DX: R06.09 Other forms of dyspnea (principal); R07.9 Chest pain, unspecified; R00.2 Palpitations; R60.9 Edema, unspecified; Z34.90 Encounter for supervision of normal pregnancy, unspecified, unspecified trimester | CPT/HCPCS: 93270 ==

== ENCOUNTER 2021-04-10 13:27 | Emergency (ER) | payer MEDICAID, SELFPAY ==
[2021-04-10 13:28] VITALS: BP 141/96; PULSE 71; RESP 19; TEMP 36.6; O2SAT 97; BMI 45.1
--- NOTE | 2021-04-10 14:29 | HMH.EDUTC ---
[facility] [place] Disposition Clinical Impression: Fall Qualifiers: Encounter type: initial encounter Qualified Code(s): W19.XXXA - Unspecified fall, initial encounter Disposition: Home, Self-Care Condition on Discharge: Good Instructions: Acetaminophen (Alternative Therapy), How To Perform RICE (Rest, Ice, Compress, Elevate) Additional Instructions: *RICE, Rest the extremity, Ice 15-20 minutes 3-4 times daily, Compress- wear the doe wrap as discussed as much as possible to help reduce swelling and pain, Elevate the extremity when at rest *Elevate when resting With you being you can take Tylenol for pain but make sure to check with your OBGYN before taking any medication Use crutches to get around Make sure to follow up with the Physician you see for your Hip problems as soon as possible and follow up with your OBGYN Immediately follow up with your family doctor for new or worsening of symptoms, or no noticeable improvement over the next 3-5 days Referrals: Maria Isabel Garrido PA [Primary Care Provider] - As needed Forms: Work/School Release Time of Disposition: 14:39 Medical Decision Making - Dionisio Inquiry Pt receiving controlled substance: No Dionisio was queried for this patient: No Vital Signs: 04/10/21 13:28 04/10/21 14:41 Temperature 97.9 F 97.9 F Temperature Source Oral Oral Pulse Rate 71 Pulse Rate [Apical] 71 Respiratory Rate 19 19 Blood Pressure 141/96 H Blood Pressure [Right Arm] 141/96 H Blood Pressure Mean [Right Arm] 111 Blood Pressure Source Automatic Cuff Blood Pressure Source [Right Arm] Automatic Cuff Blood Pressure Position Sitting Blood Pressure Position [Right Arm] Sitting 02 Sat by Pulse Oximetry 97 Oxygen Delivery Method Room Air Room Air Medical Decision Narrative: Discussed with patient and due to patient being 28wks OB with triplets did not feel comfortable performing hip xray due to this would include the pelvic area, patient is walking on hip without difficulty and states that it feels sore/bruised Patient agreed and didnt want xray either, Patient reports that she has a hip doctor at and her OBGYN is in [place] recommended that patient follow up with one of them for further evaluation and treatment Discussed that we could transfer her to the ED and patient declined Advised patient that we would give her crutches and she advised she already had some at home and would follow up with them for further evaluation and treatment [facility] HPI - General Stated complaint: ao 04/09/21 back/hip pain Time Seen by Provider: 04/10/21 14:29 Mode of Arrival: Ambulatory Source of Information: Patient Limitations: No Limitations Description of Symptoms (Recalled from Triage Doc. by RN): hip and back pain related to fall at home HEENT Symptoms (Recalled from RN notes): No Resp Symptoms (Recalled from RN notes): No Skin Symptoms (Recalled from RN notes): No MS Symptoms (Recalled from RN notes): Yes Functional Status (Recalled from RN notes): na - History of Present Illness Provider Complaint: Patient states that she slipped in the mud yesterday and fell State that she feels like she may have pulled something in her lower back area and has achy like pain on and off on the outside of her left hip States that she is 28wks OB with triplets State that she is not having any abdominal pain nor any bleeding States that today she was still having pain so she came in - Related Data Home Medications Medication Instructions Recorded Confirmed prenmichelle.vits,monae,idc-lwry-jcmhd 1 tab PO DAILY 02/27/21 03/28/21 Allergies Allergy/AdvReac Type Severity Reaction Status Date / Time adhesive tape AdvReac Intermediate Verified 03/28/21 10:51 - Worker's Comp Is this a Worker's Comp case?: No [facility] History - Hepatitis A Screen Drug use history?: No High risk sexual behaviors?: No History of sexually transmitted infection?: No Currently employed?: No Childcare worker?: No Do you have indoor
[2021-04-10 14:41] VITALS: BP 141/96; PULSE 71; RESP 19; TEMP 36.6; O2SAT 97
== END 2021-04-10 14:45 | disposition home or self-care (01) ==
PROVIDERS: Emergency Provider Nurse Practitioner; PCP Physician Assistant
DX: S70.02XA Contusion of left hip, initial encounter (principal); W01.0XXA Fall on same level from slipping, tripping and stumbling without subsequent striking against object, initial encounter; Y92.018 Other place in single-family (private) house as the place of occurrence of the external cause; Z3A.27 27 weeks gestation of pregnancy
CPT/HCPCS: 99202; G0463

== ENCOUNTER → 2021-05-10 20:12 | Outpatient (CLI) | payer MEDICAID, SELFPAY | PROVIDERS: Visit Provider Nurse Practitioner Family | DX: Z20.822 Contact with and (suspected) exposure to COVID-19 (principal) | CPT/HCPCS: U0003 ==

== ENCOUNTER 2021-06-05 20:40 | Emergency (ER) | payer MEDICAID, SELFPAY ==
--- NOTE | 2021-06-05 21:45 | XR_ITS ---
PROCEDURE INFORMATION: Exam: XR Left Ankle Exam date and time: 06/05/2021 9:45 PM Age: 25 years old Clinical indication: Patient HX: Left ankle pain, no injury. Shielded with 2 full aprons. TECHNIQUE: Imaging protocol: XR Left ankle. Views: 3 or more views. COMPARISON: CR XR ANKLE LT MIN 3V 02/18/2021 8:01 PM FINDINGS: Bones/joints: Normal. Soft tissues: Normal. IMPRESSION: No acute findings.
[2021-06-05 21:57] VITALS: BP 131/87; PULSE 71; RESP 19; TEMP 37; O2SAT 97; BMI 44.4
[2021-06-05 22:17] VITALS: BP 143/96; PULSE 72; RESP 18; TEMP 36.6
--- NOTE | 2021-06-05 22:30 | HMH.EDUTC ---
[facility] [place] Clinical Impression: Ankle sprain Qualifiers: Encounter type: initial encounter Involved ligament of ankle: unspecified ligament Laterality: left Qualified Code(s): S93.402A - Sprain of unspecified ligament of left ankle, initial encounter Disposition: Home, Self-Care Condition on Discharge: Good Instructions: DI for Ankle Sprain, Ankle Sprain, How to Apply an Stewart Wrap Additional Instructions: *weight bearing as tolerated *RICE, Rest the extremity, Ice 15-20 minutes 3-4 times daily, Compress- wear the stewart wrap as discussed as much as possible to help reduce swelling and pain, Elevate the extremity when at rest *Stewart wrap is for support and help control swelling, use it except in the shower. Be sure that is not to tight but not to loose either *Elevate when resting *Ibuprofen every 6-8 hours as needed for pain an inflammation. If need something more can take Tylenol in between doses of Ibuprofen to help Immediately follow up with your family doctor for new or worsening of symptoms, or no noticeable improvement over the next 3-5 days Return if needed Straight to ER if any life threatening symptoms Referrals: Maria Isabel Garrido PA [Primary Care Provider] - As needed Forms: Work/School Release Time of Disposition: 22:34 Medical Decision Making - Dionisio Inquiry Pt receiving controlled substance: No Dionisio was queried for this patient: No Vital Signs: 06/05/21 21:57 06/05/21 22:17 Temperature 98.6 F 97.8 F Temperature Source Oral Pulse Rate 72 Pulse Rate [Left] 71 Respiratory Rate 19 18 Blood Pressure 143/96 H Blood Pressure [Right Arm] 131/87 Blood Pressure Mean [Right Arm] 101 02 Sat by Pulse Oximetry 97 Orders (Tests/Meds): ORDERS Category Date Time Status XR ankle LT min 3V Stat Exams 06/05/21 21:45 Taken - Radiology Data #1 Image(s): Ankle Image Reviewed: Yes I reviewed the patient's radiology image Preliminary Findings: No Fracture Seen [facility] [place]PI - General Stated complaint: left ankle pain no ao Time Seen by Provider: 06/05/21 22:30 Mode of Arrival: Ambulatory Source of Information: Patient Limitations: No Limitations Description of Symptoms (Recalled from Triage Doc. by RN): pt c/o L ankle pain. she states this has been ongoing x2 months and that its hard to apply pressure and is swollen. HEENT Symptoms (Recalled from RN notes): No Resp Symptoms (Recalled from RN notes): No Skin Symptoms (Recalled from RN notes): No MS Symptoms (Recalled from RN notes): Yes (L ankle pain) Functional Status (Recalled from RN notes): na - History of Present Illness Provider Complaint: Patient states that she has been having pain in her left ankle on and off for several months States that she was at work earlier and started having pain in her ankle again and hurts when she tries to walk on it States that she doesnt remember hurting it again but is unsure so she came in to get it checked again States that she is no longer she lost her preganancy a few weeks ago - Related Data Previous Rx's Medication Instructions Recorded ondansetron 8 mg disintegrating 8 mg PO Q8H PRN #30 tab 05/10/21 tablet Allergies Allergy/AdvReac Type Severity Reaction Status Date / Time adhesive tape AdvReac Intermediate Verified 05/10/21 18:15 - Worker's Comp Is this a Worker's Comp case?: No [facility] History - Hepatitis A Screen Drug use history?: No High risk sexual behaviors?: No History of sexually transmitted infection?: No Currently employed?: No Childcare worker?: No Do you have indoor plumbing?: Yes Do you have electricity?: Yes Attestation statement:: This patient has been screened for Hepatitis A risk factors. I have reviewed the patient's past medical history: Yes Medical History: Reports:: Asthma, Deep Vein Thrombosis, Diabetes Mellitus Type 2, Gastroesophageal Reflux Disease(GERD), Hypertension, Migraine Denies:: Cancer, Diabetes Mellitus Type 1, Interna
== END 2021-06-05 22:39 | disposition home or self-care (01) ==
PROVIDERS: Emergency Provider Nurse Practitioner; PCP Physician Assistant
DX: S93.402A Sprain of unspecified ligament of left ankle, initial encounter (principal); E11.9 Type 2 diabetes mellitus without complications; I10 Essential (primary) hypertension; K21.9 Gastro-esophageal reflux disease without esophagitis; G43.709 Chronic migraine without aura, not intractable, without status migrainosus; F17.210 Nicotine dependence, cigarettes, uncomplicated
CPT/HCPCS: 73610; 99202; G0463

== ENCOUNTER 2021-06-16 03:15 | Emergency (ER) | payer MEDICAID, SELFPAY ==
[2021-06-16 03:16] VITALS: BP 149/87; PULSE 87; RESP 16; TEMP 36.8; O2SAT 98; BMI 37.6
--- NOTE | 2021-06-16 03:27 | XR_ITS ---
PROCEDURE INFORMATION: Exam: XR Temporomandibular Joints, Open and Closed Mouth Exam date and time: 06/16/2021 3:27 AM Age: 25 years old Clinical indication: Jaw pain; Additional info: Jaw pain RT side with some swelling. Cant hardly open mouth no trauma TECHNIQUE: Imaging protocol: XR of the bilateral temporomandibular joints, open and closed mouth views. COMPARISON: HEADWO CT head/brain wo con 02/01/2019 1:41 AM FINDINGS: Sinuses: Well aerated. No opacification. Bones/joints: No acute displaced fracture. Bilateral mandibular condyles appear well aligned with the mandibular fossa. Soft tissues: Unremarkable. IMPRESSION: No acute finding.
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
[2021-06-16 06:31] VITALS: BP 139/99; PULSE 86; RESP 16; TEMP 36.8; O2SAT 96
== END 2021-06-16 06:33 | disposition home or self-care (01) ==
PROVIDERS: Emergency Provider Emergency Medicine; PCP Physician Assistant
DX: K11.20 Sialoadenitis, unspecified (principal); M26.621 Arthralgia of right temporomandibular joint; J45.909 Unspecified asthma, uncomplicated; I73.9 Peripheral vascular disease, unspecified; E11.9 Type 2 diabetes mellitus without complications; K21.9 Gastro-esophageal reflux disease without esophagitis; I10 Essential (primary) hypertension; G43.909 Migraine, unspecified, not intractable, without status migrainosus; Z72.0 Tobacco use
CPT/HCPCS: 70330; 99282

== ENCOUNTER → 2021-07-12 14:01 | Outpatient (CLI) | payer MEDICAID, SELFPAY ==
--- NOTE | 2021-07-12 14:01 | MR_ITS ---
PROCEDURE INFORMATION: Exam: MR Left Lower Extremity Joint Without Contrast; Ankle Exam date and time: 07/12/2021 2:01 PM Age: 25 years old Clinical indication: Pain; Ankle; Left; Additional info: Left ankle pain. Lt ankle pain. Pain worse on lateral aspect. Swelling x3-4months. Prior x-ray 06-05-21 TECHNIQUE: Imaging protocol: MR of the Left lower extremity without contrast. Exam focused on the ankle. COMPARISON: CR XR ANKLE LT MIN 3V 06/05/2021 9:58 PM FINDINGS: Bones and cartilage: There are subcentimeter T2 hyperintense foci within the calcaneus anteriorly, likely representing a prominent vascular remnant. No visualized acute marrow edema. No dislocation of the ankle. No visualized acute fracture. Is Joint spaces: Small tibiotalar and subtalar joint effusions. LIGAMENTS: Distal tibiofibular syndesmosis: Unremarkable. No tear. Anterior talofibular ligament: Small amount of fluid adjacent to the anterior talofibular ligament, without definitive tear. Ligament sprain cannot be excluded. Posterior talofibular ligament: Unremarkable. No tear. Calcaneofibular ligament: No tear. Deltoid ligament complex: No tear. TENDONS: Flexor tendons of foot: Unremarkable as visualized. Tibialis posterior tendon: Minimal fluid signal intensity or vessel identified adjacent to the distal posterior tibialis tendon. No visualized tear of this tendon. Peroneal tendons: Heterogeneous signal intensity of the peroneus longus tendon, consistent with tendinosis. No visualized tear of the peroneus brevis tendon. Extensor tendons of foot: Unremarkable as visualized. Tibialis anterior tendon: Unremarkable as visualized. Achilles tendon: Unremarkable as visualized. Tarsal canal (Sinus tarsi): A cystic collection of fluid is identified lateral to the talus and extending into the sinus tarsi, consistent with a ganglion cyst. This measures 1.1 x 0.6 cm. An additional small cystic collection of fluid is identified lateral to the calcaneocuboid joint. Tarsal tunnel: Unremarkable. Muscles: No visualized acute abnormality. Soft tissues: See above. Plantar fascia: Intact, as visualized. IMPRESSION: 1. Small tibiotalar and subtalar joint effusions. 2. Small amount of fluid adjacent to the anterior talofibular ligament, without definitive tear. Ligament sprain cannot be excluded. 3. A cystic collection of fluid is identified lateral to the talus and extending into the sinus tarsi, consistent with a ganglion cyst. An additional small cystic collection of fluid is identified lateral to the calcaneocuboid joint. 4. Tendinosis of the peroneus longus tendon.
== END ==
PROVIDERS: PCP Physician Assistant; Visit Provider Podiatrist
DX: M25.572 Pain in left ankle and joints of left foot (principal); S93.402A Sprain of unspecified ligament of left ankle, initial encounter; R60.0 Localized edema
CPT/HCPCS: 73721

== ENCOUNTER 2021-07-20 18:34 | Emergency (ER) | payer MEDICAID, SELFPAY ==
[2021-07-20 19:00] VITALS: BP 143/92; PULSE 86; RESP 21; TEMP 36.6; O2SAT 98; BMI 48.0
--- NOTE | 2021-07-20 19:23 | HMH.EDUTC ---
[facility] [place] Disposition Clinical Impression: Bronchitis Sinusitis Qualifiers: Sinusitis location: unspecified location Chronicity: unspecified Qualified Code(s): J32.9 - Chronic sinusitis, unspecified Disposition: Home, Self-Care Condition on Discharge: Good Instructions: Sinusitis, Acute Bronchitis, DI for Sinusitis, Azithromycin Additional Instructions: ? Start antibiotic today. Be sure to complete entire prescription even if feeling better ? Monitor temp. Tylenol every 4 hours as needed and / or ibuprofen every 6 hours as needed ( As long as your primary care physician has told you that it ok to take both. For fever/aches/pains ER if no less than 101 despite Tylenol or Motrin ? Humidifier/vaporizer or hot steamy shower ? Inhaler every 4-6 hours as needed like we discussed. If unsure how to use it, ask pharmacist to demonstrate how. Should help open airways and improve cough, wheezing, and shortness of breath *Continue taking Tessalon Perles will not cause drowsiness but use at bedtime to help stop cough so that you may get some rest. *Start steroid today. Helps with inflammation therefore, cough and wheezing. Follow directions on the package. Reviewed side effects. Patient reports taking them before. Follow up IMMEDIATELY for new or worsening of symptoms OR no noticeable improvement over the next 48-72 hours. 911 immediately for any life threatening symptoms such as chest pain or difficulty breathing Prescriptions: Albuterol Sulfate [Proventil-HFA 90mcg/puff Inh] 1 - 2 puffs IH Q4HP PRN #1 each PRN Reason: Shortness Of Breath Transmission Status: Received by [id number] predniSONE [Deltasone 10mg tablet] 10 mg PO BID 5 Days #10 tab Transmission Status: Received by [id number] Azithromycin [Z-Darnell 250mg Tab] 250 mg PO DIRECTED #6 tab Transmission Status: Received by [id number] Referrals: Maria Isabel Garrido PA [Primary Care Provider] - As needed Time of Disposition: 19:30 Medical Decision Making - Dionisio Inquiry Pt receiving controlled substance: No Dionisio was queried for this patient: No Vital Signs: 07/20/21 19:00 07/20/21 19:27 Temperature 97.9 F 97.9 F Temperature Source Oral Pulse Rate 86 Pulse Rate [Right Brachial] 86 Respiratory Rate 21 21 Blood Pressure 143/92 H Blood Pressure [Right Arm] 143/92 H Blood Pressure Mean [Right Arm] 109 Blood Pressure Source [Right Arm] Automatic Cuff Blood Pressure Position [Right Arm] Sitting 02 Sat by Pulse Oximetry 98 Oxygen Delivery Method Room Air - Lab Data Lab results reviewed: Yes: I reviewed the patient's lab results. Orders (Tests/Meds): ORDERS Category Date Time Status Covid-19 Nasal PCR ([facility]) Routine Lab 07/20/21 18:40 Received Medical Decision Narrative: ? Start antibiotic today. Be sure to complete entire prescription even if feeling better ? Monitor temp. Tylenol every 4 hours as needed and / or ibuprofen every 6 hours as needed ( As long as your primary care physician has told you that it ok to take both. For fever/aches/pains ER if no less than 101 despite Tylenol or Motrin ? Humidifier/vaporizer or hot steamy shower ? Inhaler every 4-6 hours as needed like we discussed. If unsure how to use it, ask pharmacist to demonstrate how. Should help open airways and improve cough, wheezing, and shortness of breath *Tessalon Perles will not cause drowsiness but use at bedtime to help stop cough so that you may get some rest. *Start steroid today. Helps with inflammation therefore, cough and wheezing. Follow directions on the package. Reviewed side effects. Patient reports taking them before. Follow up IMMEDIATELY for new or worsening of symptoms OR no noticeable improvement over the next 48-72 hours. 911 immediately for any life threatening symptoms such as chest pain or difficulty breathing [facility] [place] HPI - General Stated complaint: covid test, sore throat,cough,WICK,weak,lucy Time Seen by Provider: 07/20/21 1
[2021-07-20 19:27] VITALS: BP 143/92; PULSE 86; RESP 21; TEMP 36.6; O2SAT 98
== END 2021-07-20 19:39 | disposition home or self-care (01) ==
PROVIDERS: Emergency Provider Nurse Practitioner; PCP Physician Assistant
DX: J01.90 Acute sinusitis, unspecified (principal); K21.9 Gastro-esophageal reflux disease without esophagitis; I10 Essential (primary) hypertension; F17.210 Nicotine dependence, cigarettes, uncomplicated
CPT/HCPCS: 99202; C9803; G0463; U0003; U0005

== ENCOUNTER 2021-07-30 14:30 | Outpatient (RCR) | payer MEDICAID, SELFPAY ==
--- NOTE | 2021-07-25 15:05 | HMH.PTOPEV ---
PT Outpatient Evaluation Rehab PT Outpatient Evaluation Start: 07/25/21 14:50 Freq: Status: Active Protocol: Document 07/25/21 14:56 CATHRYN (Rec: 07/25/21 15:05 PHORNE [id number]) Electronically Signed By Jett Boles, PT 07/25/21 14:56 Outpatient Therapy Subjective History Subjective History Pt is 25 yowf who presents with severe L lateral foot/ ankle pain x ~ 2-3 mos with insidious onset of symptoms. She reports, My foot is so super swollen I can't hardly get a shoe on and it hurts so bad all the time. Pt presents in a shoe this date with mild L ankle edema and no erythema or calor noted. 3/4 tenderness to palpation along L peroneal tendons and malleolus. Pt had MRI performed which shows possible ganglion cyst and peroneus longus tendinosis. Chief Complaint Pain Symptom Type Stabbing Symptoms Relieved By Nothing Symptoms Aggravated By Physical Activity Prior Functional Limitations None Current Functional Limitations Standing,Walking Symptom Description Constant and Continuous Level of pain today (0-10) 8 Pain scale - at its worst (0-10) 8 Ankle/Foot Eval Gait Observation General Gait Pattern Observation Antalgic Gait Palpation Tenderness left Ankle/Foot Palpation Findings Tenderness Ankle/Foot Palpation Overall Comment peroneal tendons ROM Ankle/Foot Dorsiflexion w/Knee Extended -15 Active Range Motion (degrees) Ankle/Foot Plantar Flexion Active Range 15-45 of Motion (degrees) Ankle/Foot Eversion Active Range of 0-7 Motion (degrees) Ankle/Foot Inversion Active Range of 0-10 Motion (degrees) MMT Ankle Dorsiflexion Strength Grade 2+ Poor+ Ankle Plantarflexion Strength Grade 2+ Poor+ Foot Eversion Strength Grade 2+ Poor+ Foot Inversion Strength Grade 2+ Poor+ Special Tests Ankle Anterior Drawer Test Negative Left,Negative Right Ankle Eversion Test Negative Left,Negative Right Talar Tilt Test Negative Left,Negative Right Ankle Posterior Drawer Test Negative Left,Negative Right Outpatient Therapy Assessment Impairments Problems/Impairmments Palpation Tenderness,Impaired Range of Motion,Impaired Strength,Impaired Endurance, Impaired Gait Pattern,Impaired
== END 2021-07-30 14:35 | disposition home or self-care (01) ==
LOC: PT 14:30
PROVIDERS: Visit Provider Nurse Practitioner
DX: M25.572 Pain in left ankle and joints of left foot (principal)
CPT/HCPCS: 97014; 97110; 97163; G0283

== ENCOUNTER 2021-08-01 20:05 | Emergency (ER) | payer MEDICAID, SELFPAY ==
[2021-08-01 21:12] VITALS: BP 154/109; PULSE 103; RESP 20; TEMP 37.2; O2SAT 95; BMI 365.8
--- NOTE | 2021-08-01 21:23 | HMH.EDUTC ---
[facility] [place] Clinical Impression: Viral syndrome Disposition: Home, Self-Care Condition on Discharge: Good Instructions: DI for Viral Syndrome, DI for COVID-19 (Suspected or Confirmed ), Preventing the Spread of Coronavirus Discharge Instructions Additional Instructions: Drink plenty of fluids. Take tylenol or ibuprofen for pain or fever. Follow up with your regular doctor. GO TO THE ER FOR ANY WORSENING SYMPTOMS Quarantine until you know the results of your covid-19 test. If it is positive, the health department should call you and give you further instructions about your length of Quarantine and other things. Notify your school or workplace of your results and follow their instructions regarding return to work/school. Prescriptions: Albuterol Sulfate [Albuterol Sulfate Hfa] 2 puffs IH Q6HP PRN 30 Days #1 each PRN Reason: Shortness Of Breath Transmission Status: Received by [id number] Referrals: Maria Isabel Garrido PA [Primary Care Provider] - Medical Decision Making - Medical Records Medical records reviewed: No: I reviewed the patient's medical records. - Dionisio Inquiry Pt receiving controlled substance: No Vital Signs: 08/01/21 21:12 08/01/21 21:39 Temperature 98.9 F 98.9 F Temperature Source Oral Pulse Rate 103 H Pulse Rate [Left] 103 H Respiratory Rate 20 20 Blood Pressure 154/109 H Blood Pressure [Right Arm] 154/109 H Blood Pressure Mean [Right Arm] 124 02 Sat by Pulse Oximetry 95 Orders (Tests/Meds): ORDERS Category Date Time Status Covid-19 Nasal PCR ([facility]) Routine Lab 08/01/21 21:08 Received [facility] [place]PI - General Stated complaint: covid symptoms/test Time Seen by Provider: 08/01/21 21:23 Mode of Arrival: Ambulatory Source of Information: Patient Limitations: No Limitations Description of Symptoms (Recalled from Triage Doc. by RN): pt c/o congestion, weakness, body aches, loss of taste/smell, and WICK. all started this am. HEENT Symptoms (Recalled from RN notes): Yes (loss of taste/smell and WICK) Resp Symptoms (Recalled from RN notes): No Skin Symptoms (Recalled from RN notes): No MS Symptoms (Recalled from RN notes): No Functional Status (Recalled from RN notes): wnl - History of Present Illness Provider Complaint: She c/o feeling bad for the past 1 week. She came in today to be tested for covid-19 because she was eating and she could not taste the food. She has a cough and she has been very fatigued. She denies other complaints. - Related Data Previous Rx's Medication Instructions Recorded benzonatate 100 mg capsule 100 mg PO TID PRN #30 cap 07/14/21 loratadine 10 mg tablet 10 mg PO DAILY #30 tab 07/14/21 Albuterol Sulfate [Proventil-HFA 1 - 2 puffs IH Q4HP PRN #1 each 07/20/21 90mcg/puff Inh] Azithromycin [Z-Darnell 250mg Tab] 250 mg PO DIRECTED #6 tab 07/20/21 predniSONE [Deltasone 10mg tablet] 10 mg PO BID 5 Days #10 tab 07/20/21 Albuterol Sulfate [Albuterol 2 puffs IH Q6HP PRN 30 Days #1 each 08/01/21 Sulfate Hfa] Allergies Allergy/AdvReac Type Severity Reaction Status Date / Time adhesive tape AdvReac Intermediate Verified 07/17/21 11:44 - Worker's Comp Is this a Worker's Comp case?: No [facility] History - Hepatitis A Screen Drug use history?: No High risk sexual behaviors?: No History of sexually transmitted infection?: No Currently employed?: No Childcare worker?: No Do you have indoor plumbing?: Yes Do you have electricity?: Yes Attestation statement:: This patient has been screened for Hepatitis A risk factors. I have reviewed the patient's past medical history: Yes Medical History: Reports:: Asthma, Deep Vein Thrombosis, Diabetes Mellitus Type 2, Gastroesophageal Reflux Disease(GERD), Hypertension, Migraine Denies:: Cancer, Diabetes Mellitus Type 1, Internal Pacemaker, MRSA, Seizures Other Medical History: Denies: Blood Transfusion Reaction Comment: Sleep Apnea. MIGRAINES. RT. LATERAL EPICONDYLI
[2021-08-01 21:39] VITALS: BP 154/109; PULSE 103; RESP 20; TEMP 37.2
== END 2021-08-01 21:41 | disposition home or self-care (01) ==
PROVIDERS: Emergency Provider Nurse Practitioner Family; PCP Physician Assistant
DX: U07.1 COVID-19 (principal); K21.9 Gastro-esophageal reflux disease without esophagitis; I10 Essential (primary) hypertension; J45.909 Unspecified asthma, uncomplicated; F17.210 Nicotine dependence, cigarettes, uncomplicated
CPT/HCPCS: 99202; C9803; G0463; U0003; U0005

== ENCOUNTER 2021-08-03 16:11 | Emergency (ER) | payer MEDICAID, SELFPAY ==
--- NOTE | 2021-08-03 15:57 | ECG_ITS ---
APPROVED REPORT Exam: Resting ECG HR:69 bpm ECG Measurements Heart Rate 69 AXES UT 128 P 16 QRSd 80 QRS 42 QT 402 T 2 QTc 430 Conclusion Normal sinus rhythm Cannot rule out Anterior infarct, age undetermined Abnormal ECG Electronically signed by : Mik Canchola MD 08/04/2021 10:02:13
[2021-08-03 16:12] VITALS: BP 146/98; PULSE 83; RESP 18; TEMP 37.2; O2SAT 97; BMI 40.1
--- NOTE | 2021-08-03 16:17 | HMH.EDGENADL ---
ED Disposition Clinical Impression: COVID-19 virus infection Disposition: Home, Self-Care Condition on Discharge: Good Instructions: DI for Atypical Chest Pain, DI for COVID-19 (Suspected or Confirmed ) Additional Instructions: You will be called to schedule an appointment for outpatient monoclonal antibody therapy. Tylenol or ibuprofen for fever and pain. Rest and drink plenty of fluids. Return to the emergency department if any severe shortness of breath. COVID-19 Isolation: Isolate yourself for a MINIMUM of 10 days from onset of symptoms: What to do: Monitor your symptoms. If you have an emergency warning sign (including trouble breathing), seek emergency medical care immediately. Stay in a separate room from other household members, if possible. Use a separate bathroom, if possible. Avoid contact with other members of the household and pets. Don?t share personal household items, like cups, towels, and utensils. Wear a mask when around other people if able. You can be around others AFTER: 10 days since symptoms first appeared AND 24 hours with no fever without the use of fever-reducing medications AND Other symptoms of COVID-19 are improving Additional instructions for CHEST PAIN: See your physician as soon as possible for further evaluation. Return immediately if worsening chest pain, vomiting, shortness of breath, fever, coughing of blood. Referrals: Provider,Referral, MD [Primary Care Provider] - - Critical Care Critical Care Time: No Attestation: On 08/03/21, the high probability of a clinically significant, sudden or life threatening deterioration of the following system(s) required my full and direct attention, intervention and personal management. The time I documented below is in addition to time spent performing reported procedures but includes the following listed in this critical care notation. Medical Decision Making - Dionisio Inquiry Pt receiving controlled substance: No Vital Signs: 08/03/21 16:12 08/03/21 16:26 08/03/21 16:40 Temperature 98.9 F Temperature Source Oral Pulse Rate 93 H 89 Pulse Rate [Right Radial] 83 Respiratory Rate 18 21 14 Blood Pressure 201/101 H 157/107 H Blood Pressure [Right Arm] 146/98 H Blood Pressure Mean [Right Arm] 114 Blood Pressure Source [Right Arm] Automatic Cuff Blood Pressure Position [Right Arm] Supine 02 Sat by Pulse Oximetry 97 96 96 Oxygen Delivery Method Room Air - Lab Data Lab Results 08/03/21 17:00: WBC 4.7 L, RBC 4.76, Hgb 14.3, Hct 43.4, MCV 91.1, MCH 30.1, MCHC 33.0, RDW 13.9, Plt Count 220, MPV 7.8, Neut % (Auto) 49.6, Lymph % (Auto) 41.9, [place] % (Auto) 5.6, Eos % (Auto) 2.0, Baso % (Auto) 0.9, Neut # (Auto) 2.3, Lymph # (Auto) 2.0, [place] # (Auto) 0.3, Eos # (Auto) 0.1, Baso # (Auto) 0.0 08/03/21 17:00: D-Dimer 0.51 H 08/03/21 17:00: Sodium 140, Potassium 4.2, Chloride 104, Carbon Dioxide 29, Anion Gap 11.2, BUN 8, Creatinine 0.60, Estimated Creat Clear 290, Estimated GFR 123, Est GFR ( Amer) 149, Glucose 92, Calcium 8.7, Troponin I < 0.01 08/03/21 17:00: Serum HCG, Qual Negative Result diagrams: 08/03/21 17:00 08/03/21 17:00 Orders (Tests/Meds): ED MEDICATIONS Discontinued Medications Generic Name Dose Route Start Last Admin Trade Name Rosalva PRN Reason Stop Dose Admin Iopamidol 70 ml 08/03/21 18:28 08/03/21 18:29 Iopamidol-370 (76%);100ml Bottle IV 08/03/21 18:29 70 ml ONCE ONE Administration Ondansetron HCl 4 mg 08/03/21 17:14 08/03/21 17:24 Ondansetron 4mg/2ml Vial IV 08/03/21 17:15 4 mg ONCE ONE Administration Sodium Chloride 50 ml 08/03/21 18:28 08/03/21 18:29 0.9 % Sodium Chloride 50 Ml Vial IV 08/03/21 18:29 50 ml ONCE ONE Administration Sodium Chloride 10 ml 08/03/21 18:28 08/03/21 18:29 Sodium Chloride 0.9% 10ml Syr (Rad Only) IV 08/03/21 18:29 10 ml ONCE ONE Administration ORDERS Category Date T
[2021-08-03 16:26] VITALS: BP 201/101; PULSE 93; RESP 21; O2SAT 96
[2021-08-03 16:40] VITALS: BP 157/107; PULSE 89; RESP 14; O2SAT 96
--- NOTE | 2021-08-03 17:13 | XR_ITS ---
PROCEDURE INFORMATION: Exam: XR Chest Exam date and time: 08/03/2021 5:13 PM Age: 25 years old Clinical indication: Chest wall pain; Additional info: Chest pain, covid positive TECHNIQUE: Imaging protocol: XR of the chest. Views: 1 view. COMPARISON: CR XR CHEST 2V 10/30/2020 11:48 PM FINDINGS: Lungs: Unremarkable. No consolidation. Pleural spaces: Unremarkable. No pleural effusion. No pneumothorax. Heart/Mediastinum: Unremarkable. No cardiomegaly. Bones/joints: Unremarkable. IMPRESSION: No acute findings.
[2021-08-03 17:29] LABS: Basophils % 0.9 % (0.1-2.0); Eosinophils # 0.1 K/mm3 (0.0-0.4); Hematocrit 43.4 % (37.0-47.0); Hemoglobin 14.3 g/dL (12.2-16.2); Lymphocytes % 41.9 % (10-50); Mean Corpuscular Hemoglobin 30.1 pg (27.0-31.2); Mean Corpuscular Volume 91.1 fl (81-99); Mean Platelet Volume 7.8 fl (7.4-10.4); Monocytes # 0.3 K/mm3 (0.1-1.0); Monocytes % 5.6 % (1.7-9.3); Neutrophils # 2.3 K/mm3 (1.8-7.8); Neutrophils % 49.6 % (37.0-80.0); Platelet Count 220 K/mm3 (142-424); Red Blood Count 4.76 M/mm3 (4.20-5.40); Red Cell Distribution Width 13.9 % (11.5-17.5); White Blood Count 4.7 K/mm3 (4.8-10.8)
[2021-08-03 17:37] LABS: Anion Gap 11.2 mEq/L (5-15); Blood Urea Nitrogen 8 mg/dl (7-17); Calcium 8.7 mg/dl (8.4-10.2); Carbon Dioxide 29 mmol/L (22.0-30.0); Chloride 104 mmol/L (98-107); Creatinine Clearance Estimated 290 mL/min (50-200); Estimated Glomerular Filt Rate 123 ml/min (>60); GFR (African American) 149 ML/MIN (>60); Glucose 92 mg/dl (74-100); Potassium 4.2 mmoL/L (3.5-5.1); Sodium 140 mmol/L (136-145)
[2021-08-03 17:39] LABS: D-Dimer 0.51 ug/mL (0.0-0.5)
[2021-08-03 17:52] LABS: HCG Qualitative, Serum Negative (Negative); Troponin I < 0.01 ng/ml (0.00-0.034)
--- NOTE | 2021-08-03 18:08 | CT_ITS ---
PROCEDURE INFORMATION: Exam: CTA Chest With Contrast Exam date and time: 08/03/2021 6:08 PM Age: 25 years old Clinical indication: Other: Covid 19; Additional info: Covid 19, pleuritic cp, elev d-dimer 0.51 TECHNIQUE: Imaging protocol: Computed tomographic angiography of the chest with contrast. 3D rendering (Not supervised by radiologist): MIP and/or 3D reconstructed images were created by the technologist. Radiation optimization: All CT scans at this facility use at least one of these dose optimization techniques: automated exposure control; mA and/or kV adjustment per patient size (includes targeted exams where dose is matched to clinical indication); or iterative reconstruction. Contrast material: ISOVUE 370; Contrast volume: 70 ml; Contrast route: INTRAVENOUS (IV); COMPARISON: CR XR CHEST PORTABLE 08/03/2021 5:22 PM FINDINGS: Pulmonary arteries: No evidence of pulmonary embolus to the segmental level. Aorta: Unremarkable. No aortic aneurysm. No aortic dissection. Lungs: A 3 mm pulmonary nodule seen in the left upper lobe on image 51. If the patient does not have known cancer, follow up should be based on clinical information because of the low risk of cancer in this age group. (Reference: Chip). Mild atelectasis seen bilaterally. Pleural spaces: Unremarkable. No pneumothorax. No pleural effusion. Heart: Unremarkable. No cardiomegaly. No pericardial effusion. Lymph nodes: Unremarkable. No enlarged lymph nodes. Bones/joints: Unremarkable. No acute fracture. Soft tissues: Unremarkable. IMPRESSION: No evidence of pulmonary embolus. No acute pathology. REFERENCES: Neishahorhonda H, et al. Guidelines for Management of Incidental Pulmonary Nodules Detected on CT Images: From the Fleischner Society 2017. Radiology. 2017;284(1):228-243.
--- NOTE | 2021-08-03 18:21 | PC.NURSE ---
Pt to rad.
--- NOTE | 2021-08-03 18:36 | PC.NURSE ---
Pt returned from RAD
[2021-08-03 19:10] VITALS: BP 100/68; PULSE 66; RESP 16; TEMP 36.7; O2SAT 96
== END 2021-08-03 19:12 | disposition home or self-care (01) ==
PROVIDERS: Emergency Provider Emergency Medicine
DX: U07.1 COVID-19 (principal); F17.210 Nicotine dependence, cigarettes, uncomplicated
CPT/HCPCS: 71045; 71275; 80048; 84484; 84703; 85025; 85378; 93005; 96374; 99283; J2405; Q9967

== ENCOUNTER 2021-08-07 07:57 | Outpatient (CLI) | payer MEDICAID, SELFPAY ==
[2021-08-07] VITALS (8 sets, daily range): BP systolic 121–136; BP diastolic 72–92; PULSE 71–89; RESP 16; TEMP 36.8; O2SAT 91–99
--- NOTE | 2021-08-07 10:23 | PC.NURSE ---
no infusion reaction noted during infusion. pt d/c home with no complications
== END 2021-08-07 10:23 | disposition home or self-care (01) ==
LOC: INF 07:59
PROVIDERS: PCP Physician Assistant; Visit Provider Emergency Medicine
DX: U07.1 COVID-19 (principal); Z23 Encounter for immunization
CPT/HCPCS: 96365

== ENCOUNTER 2021-08-26 21:18 | Emergency (ER) | payer MEDICAID, SELFPAY ==
[2021-08-26 21:23] VITALS: BP 140/96; PULSE 98; RESP 15; TEMP 36.7; O2SAT 99; BMI 39.0
--- NOTE | 2021-08-26 21:27 | XR_ITS ---
PROCEDURE INFORMATION: Exam: XR Right Tibia and Fibula Exam date and time: 08/26/2021 9:27 PM Age: 25 years old Clinical indication: Injury or trauma; Fall; Sprain or strain; Lower leg; Right; Injury date: 08/26/2021 TECHNIQUE: Imaging protocol: XR Right tibia and fibula. Views: 2 views. COMPARISON: CR XR FOOT WT BEARING RT 3V 06/29/2019 9:11 AM FINDINGS: Bones/joints: Normal. Soft tissues: Normal. IMPRESSION: No acute findings.
--- NOTE | 2021-08-26 21:27 | XR_ITS ---
PROCEDURE INFORMATION: Exam: XR Left Ankle Exam date and time: 08/26/2021 9:27 PM Age: 25 years old Clinical indication: Injury or trauma; Sprain or strain; Injury date: 08/26/2021; Patient HX: Twisted left ankle causing PT to fall TECHNIQUE: Imaging protocol: XR Left ankle. Views: 3 or more views. COMPARISON: MR ANKLE LT WO CON 07/12/2021 2:45 PM FINDINGS: Bones/joints: No fracture or dislocation. Small plantar calcaneal spur. Soft tissues: Normal. IMPRESSION: No acute findings.
--- NOTE | 2021-08-26 21:27 | XR_ITS ---
PROCEDURE INFORMATION: Exam: XR Right Knee Exam date and time: 08/26/2021 9:27 PM Age: 25 years old Clinical indication: Injury or trauma; Fall; Sprain or strain; Patella or knee; Right; Injury date: 08/26/2021 TECHNIQUE: Imaging protocol: XR Right knee. Views: 3 views. COMPARISON: DX XR KNEE RT 4V 07/24/2020 1:33 PM FINDINGS: Bones/joints: Normal. Soft tissues: Normal. IMPRESSION: No acute findings.
--- NOTE | 2021-08-26 22:09 | HMH.EDFALL ---
ED Disposition Clinical Impression: Right knee injury Qualifiers: Encounter type: initial encounter Qualified Code(s): S89.91XA - Unspecified injury of right lower leg, initial encounter Disposition: Home, Self-Care Condition on Discharge: Good Instructions: DI for Knee Pain Additional Instructions: ice and advil and tyenol and see pcp for follow up Referrals: Maria Isabel Garrido PA [Primary Care Provider] - - Critical Care Critical Care Time: No Attestation: On 08/26/21, the high probability of a clinically significant, sudden or life threatening deterioration of the following system(s) required my full and direct attention, intervention and personal management. The time I documented below is in addition to time spent performing reported procedures but includes the following listed in this critical care notation. Medical Decision Making - Medical Records Medical records reviewed: Yes: I reviewed the patient's medical records. - Dionisio Inquiry Pt receiving controlled substance: No Vital Signs: 08/26/21 21:23 Temperature 98.1 F Temperature Source Oral Pulse Rate [Right Brachial] 98 H Respiratory Rate 15 Blood Pressure [Right Arm] 140/96 H Blood Pressure Mean [Right Arm] 110 Blood Pressure Source [Right Arm] Automatic Cuff Blood Pressure Position [Right Arm] Sitting 02 Sat by Pulse Oximetry 99 Oxygen Delivery Method Room Air - Lab Data Lab results reviewed: Yes: I reviewed the patient's lab results. Orders (Tests/Meds): ORDERS Category Date Time Status Ankle XR - Left minimum 3 Views [XR ankle LT min 3V] Exams 08/26/21 21:27 Taken Stat XR knee RT 3V Stat Exams 08/26/21 21:27 Taken XR tibia fibula RT 2V Stat Exams 08/26/21 21:27 Taken - Radiology Data #1 Image(s): Knee, Tib/Fib, Ankle Image Reviewed: Yes I reviewed the patient's radiology image Preliminary Findings: No Fracture Seen Medical Decision Narrative: acute fall with rt knee injury and limited wt bearing will need to ice and see pcp for follow up Fall HPI - General Chief Complaint: Fall Stated Complaint: AO 2018 fall injured R knee Time Seen by Provider: 08/26/21 22:00 Mode of Arrival: Family Vehicle Source of Information: Patient, Medical Record Limitations: Physical Limitations Description of Symptoms (Recalled from ER Triage Doc. 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 states her left ankle twisted and she landed on her right knee. no other complaints of injury. states it is difficult to move the knee. scratches noted to right inner wrist and she said she scraped it as she went down. - History of Present Illness HPI Narrative: fell with rt knee and lt ankle injury - pain with rom and wt bearing MD complaint: fall Onset (ago): hour(s) Fall from: walking Place fall occurred: home Loss of consciousness: none Prolonged down time: no Context: tripped/slipped Location of injury - extremities: Left: ankle, Right: knee, lower leg Severity: moderate Associated symptoms (after fall): denies - Related Data Allergies Allergy/AdvReac Type Severity Reaction Status Date / Time adhesive tape AdvReac Intermediate Verified 07/17/21 11:44 [facility] History - Hepatitis A Screen Drug use history?: No High risk sexual behaviors?: No History of sexually transmitted infection?: No Currently employed?: No Childcare worker?: No Do you have indoor plumbing?: Yes Do you have electricity?: Yes Attestation statement:: This patient has been screened for Hepatitis A risk factors. I have reviewed the patient's past medical history: Yes Medical History: Reports:: Asthma, Deep Vein Thrombosis, Diabetes Mellitus Type 2, Gastroesophageal Reflux Disease(GERD), Hypertension, Migraine Denies:: Cancer, Diabetes Mellitus Type 1, Internal Pacemaker, MRSA, Seizures Other Medical History: Denies: Blood Transfusion Reaction Comment: Sleep Apnea. MIGRAINES. RT. LATERAL EPICONDYLITIS. Abd. surgery-
[2021-08-26 22:47] VITALS: BP 138/75; PULSE 90; RESP 16; TEMP 36.7; O2SAT 98
== END 2021-08-26 22:49 | disposition home or self-care (01) ==
PROVIDERS: Emergency Provider Emergency Medicine; PCP Physician Assistant
DX: S89.91XA Unspecified injury of right lower leg, initial encounter (principal); W01.0XXA Fall on same level from slipping, tripping and stumbling without subsequent striking against object, initial encounter; Y92.89 Other specified places as the place of occurrence of the external cause; E11.9 Type 2 diabetes mellitus without complications; K21.9 Gastro-esophageal reflux disease without esophagitis; I10 Essential (primary) hypertension; F17.210 Nicotine dependence, cigarettes, uncomplicated
CPT/HCPCS: 73562; 73590; 73610; 99283

== ENCOUNTER → 2021-08-30 10:24 | Outpatient (CLI) | payer MEDICAID, SELFPAY ==
--- NOTE | 2021-08-30 10:28 | XR_ITS ---
PROCEDURE: XR SHOULDER RT MIN 2V CLINICAL INDICATION: right shoulder pain COMPARISON: CR [id number] VIEWS from 09/12/2015 FINDINGS: No fracture or dislocation. No lytic or blastic change. There is normal mineralization. The joint spaces are well-preserved. No significant degenerative/arthritic changes. No erosive changes evident. Other findings:None. IMPRESSION: No acute findings. Dictated by: Troy Owen MD 08/30/2021 11:12 Troy Owen MD in [place] 08/30/2021 11:12
== END ==
PROVIDERS: PCP Physician Assistant; Visit Provider Emergency Medicine
DX: M25.511 Pain in right shoulder (principal)
CPT/HCPCS: 73030

== ENCOUNTER 2021-09-28 14:26 | Outpatient (RCR) | payer MEDICAID, SELFPAY | END 2021-09-28 15:24 | disposition home or self-care (01) | LOC: PT 14:26 | PROVIDERS: Visit Provider Orthopaedic Surgery | DX: M25.561 Pain in right knee (principal) | CPT/HCPCS: 97760 ==

== ENCOUNTER 2021-11-02 17:00 | Outpatient (RCR) | payer MEDICAID, SELFPAY ==
--- NOTE | 2021-09-06 14:45 | HMH.PTOPEV ---
PT Outpatient Evaluation Rehab PT Outpatient Evaluation Start: 09/06/21 13:51 Freq: Status: Active Protocol: Document 09/06/21 14:19 PHORNE (Rec: 09/06/21 14:45 PHORNE [id number]) Electronically Signed By Jett Boles, PT 09/06/21 14:19 Outpatient Therapy Subjective History Subjective History Pt is 25 yowf who presents with c/o pain in R shld and R knee after ground level fall ~ 11 days ago (08/26/21). She was seen in the ED immediately after and has had x-rays performed on both knee and shld with no fxs noted. She reports, I'm supposed to use a knee brace and crutches, but I can't because my shoulder hurts too bad. She reports difficulty moving both the shld and knee through even mild ROM currently. She reports she has returned to driving, but this is painful as well. She presents with highly exaggerated response to all palpation throughout the R shld. Chief Complaint Pain Symptom Type Sharp,Stabbing Symptoms Relieved By Nothing Symptoms Aggravated By Standing,Physical Activity, Walking,Lifting Prior Functional Limitations None Current Functional Limitations Reaching,Lifting,Housework, Driving,Sleeping,Standing, Squatting,Recreation Activity, Walking,Stairs Symptom Description Constant but Variable Level of pain today (0-10) 9 Pain scale - at its worst (0-10) 10 Shoulder/Elbow Eval Shoulder Objective Measurements Palpation Tenderness tenderness shoulder exam standard right tenderness over the bicipital tendon right shoulder exam standard tenderness over the SA bursa shoulder right exam standard Shoulder Palpation Findings Tenderness,Muscle Guarding Shoulder Palpation Overall Comment Ant, pos, and lateral shld all painful, 3/4 TTP Shoulder ROM Right Shoulder Abduction Active Range of 0-70 Motion (degrees) Shoulder Abduction Passive Range of 0-90 Motion (degrees) Shoulder Flexion Active Range of Motion 0-83 (degrees) Query Text: Shoulder Flexion Passive Range of Motion 0-90
--- NOTE | 2021-10-08 15:41 | HMH.RHREAS ---
Rehab Reassessment Rehab OP Re-assessment Start: 10/08/21 15:34 Freq: Status: Active Protocol: Document 10/08/21 15:36 MOLINAUriahJANES (Rec: 10/08/21 15:41 PHORNE [id number]) Electronically Signed By Jett Boles, PT 10/08/21 15:36 Rehab Re-assessment Subjective Subjective Pt reports, My knee isn't as bad as my shoulder, but they both hurt. Objective Objective Notes Pain currently: R shld= 10/10, R knee= 8/10. MMT R shld and R knee grossly 4/5 throughout. AROM R SHLD (in deg): Flex= 0- 125, ABD= 0-89, IR= 0-60, ER= 0-84. AROM R knee (in deg): 0-125. Assessment Progress Assessment Slower Than Expected Assessment Notes Pt has shown much improvement in strength and AROM, however continues to rate pain very high despite no obvious functional deficits with mobility during observation. She is progressing toward all goals except subjective c/o pain at this time, however. Patient goals met ST,2,3,4,[address] LT,2,3,4,5,6,7,8 ,9 Revised Goals none Plan Plan Continue per initial POC. Frequency of Therapy 2-3 x/wk Duration of therapy 8 wks Time and Billing Re-Eval Time 15 Re-Eval Billing Units 1 PHYSICIAN CERTIFICATION: I certify the specified therapy services for Cat Shay are required, authorized, and reviewed every 30 days.
== END 2021-11-02 17:05 | disposition home or self-care (01) ==
LOC: PT 17:00
PROVIDERS: Visit Provider Emergency Medicine
DX: S89.91XA Unspecified injury of right lower leg, initial encounter (principal); M25.511 Pain in right shoulder
CPT/HCPCS: 97010; 97014; 97110; 97163; 97164; G0283

== ENCOUNTER → 2021-11-15 14:25 | Outpatient (CLI) | payer MEDICAID, SELFPAY ==
--- NOTE | 2021-11-15 14:26 | MR_ITS ---
FINAL REPORT CLINICAL HISTORY: left shoulder pain. pt fell [id number] ago. shoulder pain. limited rom. weakness in arm. FINDINGS: Multiplanar MR imaging of the left shoulder was performed without contrast. The tendons of the rotator cuff are intact without evidence of rotator cuff tear. The a.c. joint is intact without significant outlet narrowing. No abnormal fluid is seen in the subacromial/subdeltoid bursa. The glenoid labrum is intact. The long head of the biceps tendon is intact. There is no evidence of fracture, bone bruise or marrow edema. A small glenohumeral joint effusion is identified. The musculature is intact. There is no evidence of soft tissue mass. IMPRESSION: Small joint effusion. Reviewed, Interpreted and Dictated by Jose Sagastume III, MD Transcribed by Karmen Colunga Authenticated by Jose Sagastume III, MD on 11/15/2021 04:16:06 PM [facility]
== END ==
PROVIDERS: PCP Physician Assistant; Visit Provider Orthopaedic Surgery
DX: S43.91XA Sprain of unspecified parts of right shoulder girdle, initial encounter (principal)
CPT/HCPCS: 73221

== ENCOUNTER 2021-11-22 20:32 | Emergency (ER) | payer MEDICAID, SELFPAY ==
[2021-11-22 20:49] VITALS: BP 132/96; PULSE 86; RESP 18; TEMP 37; O2SAT 96; BMI 39.4
--- NOTE | 2021-11-22 20:52 | HMH.EDUTC ---
[facility] [place] Clinical Impression: Sinusitis Qualifiers: Sinusitis location: unspecified location Chronicity: unspecified Qualified Code(s): J32.9 - Chronic sinusitis, unspecified Disposition: Home, Self-Care Condition on Discharge: Good Instructions: Sinusitis, DI for Sinusitis Additional Instructions: *Monitor Temp, Over the counter Motrin or Tylenol as directed/as needed Tylenol every 4 hours and Motrin every 6 hours (as long as your family doctor has told you that you can take it) for fever or pain. and straight to ER if unable to lower temp less than 101.0 after medication given *Warm salt water gargles may help to soothe the throat *Throat Lozenges *Warm fluids like tea with honey may help to soothe the throat *Sleep elevated *Humidifier/Vaporizer *Flonase 2 sprays in each nostril daily but be aware that it may take 2-3 days before you notice improvement Take medication as prescribed Return if needed Follow up IMMEDIATELY for new or worsening symptoms or no Noticeable improvement over the next 48-72 hours. 911 for difficulty breathing or swallowing Prescriptions: Amoxicillin/Potassium Clav [Amox-Clav 875-125 mg Tablet] 1 tab PO BID #14 tab Transmission Status: Pending to [facility] Fluticasone Propionate [Flonase 50mcg nasal spray 16gm] 1 spr NS DAILY #1 each Transmission Status: Pending to [facility] Referrals: Maria Isabel Garrido PA [Primary Care Provider] - As needed Forms: Work/School Release Medical Decision Making - Dionisio Inquiry Pt receiving controlled substance: No Dionisio was queried for this patient: No Vital Signs: 11/22/21 20:49 Temperature 98.6 F Temperature Source Oral Pulse Rate [Right Brachial] 86 Respiratory Rate 18 Blood Pressure [Right Arm] 132/96 H Blood Pressure Mean [Right Arm] 108 Blood Pressure Source [Right Arm] Automatic Cuff Blood Pressure Position [Right Arm] Sitting 02 Sat by Pulse Oximetry 96 Oxygen Delivery Method Room Air [facility] [place] HPI - General Stated complaint: CONGESTION Time Seen by Provider: 11/22/21 20:52 Mode of Arrival: Ambulatory Source of Information: Patient Limitations: No Limitations Description of Symptoms (Recalled from Triage Doc. by RN): patient states she think she has a sinus infection HEENT Symptoms (Recalled from RN notes): Yes Resp Symptoms (Recalled from RN notes): No Skin Symptoms (Recalled from RN notes): No MS Symptoms (Recalled from RN notes): No Functional Status (Recalled from RN notes): wnl - History of Present Illness Provider Complaint: Patient states that she thinks she may have a sinus infection States that she has been having sinus congestion and pressure for about a week but got worse over the last couple of days State that today she noticed her mucous changed and was yellowish green with a little blood tinged at times so she came in - Related Data Previous Rx's Medication Instructions Recorded hydrochlorothiazide 12.5 mg tablet 12.5 mg PO DAILY #30 tab 11/14/21 Amoxicillin/Potassium Clav 1 tab PO BID #14 tab 11/22/21 [Amox-Clav 875-125 mg Tablet] Fluticasone Propionate [Flonase 1 spr NS DAILY #1 each 11/22/21 50mcg nasal spray 16gm] Allergies Allergy/AdvReac Type Severity Reaction Status Date / Time adhesive tape AdvReac Intermediate Verified 11/14/21 14:31 - Worker's Comp Is this a Worker's Comp case?: No [facility] History - Hepatitis A Screen Drug use history?: No High risk sexual behaviors?: No History of sexually transmitted infection?: No Currently employed?: No Childcare worker?: No Do you have indoor plumbing?: Yes Do you have electricity?: Yes Attestation statement:: This patient has been screened for Hepatitis A risk factors. I have reviewed the patient's past medical history: Yes Medical History: Reports:: Asthma, Deep Vein Thrombosis, Diabetes Mellitus Type 2, Gastroesophageal Reflux Disease(GERD), Hypertension, Migraine Denies:: Cancer, Diabetes Rachel
[2021-11-22 20:54] VITALS: BP 132/96; PULSE 86; RESP 18; TEMP 37; O2SAT 96
== END 2021-11-22 21:03 | disposition home or self-care (01) ==
PROVIDERS: Emergency Provider Nurse Practitioner; PCP Physician Assistant
DX: J32.9 Chronic sinusitis, unspecified (principal); J45.909 Unspecified asthma, uncomplicated; E11.9 Type 2 diabetes mellitus without complications; I10 Essential (primary) hypertension; F17.210 Nicotine dependence, cigarettes, uncomplicated
CPT/HCPCS: 99212; G0463

== ENCOUNTER 2021-12-10 18:00 | Emergency (ER) | payer MEDICAID, SELFPAY ==
[2021-12-10 18:01] VITALS: BP 146/75; PULSE 87; RESP 18; TEMP 36.8; O2SAT 94; BMI 39.4
--- NOTE | 2021-12-10 19:03 | HMH.EDUTC ---
[facility] [place]: Strep [place] Disposition: Home, Self-Care Condition on Discharge: Good Instructions: Strep Throat, DI for Strep Throat Additional Instructions: Encourage her to drink plenty of fluids. Give her the medications as directed. Give her tylenol or ibuprofen for pain or fever. Follow up with her regular doctor. GO TO THE ER FOR ANY WORSENING SYMPTOMS Prescriptions: Brompheniramine/Pseudoephed/Dm [Bromfed Dm Cough Syrup] 5 ml PO Q6HP PRN #240 ml PRN Reason: Cough Transmission Status: Received by [facility] methylPREDNISolone [Medrol] 4 mg PO DIRECTED 6 Days #21 packet Transmission Status: Received by [facility] Azithromycin [Z-Darnell 250mg Tab*] 250 mg PO UD DOSE PK #6 tab Transmission Status: Received by [facility] Referrals: Maria Isabel Garrido PA [Primary Care Provider] - Forms: Work/School Release Time of Disposition: 19:18 Medical Decision Making - Medical Records Medical records reviewed: No: I reviewed the patient's medical records. - Dionisio Inquiry Pt receiving controlled substance: No Vital Signs: 12/10/21 18:01 12/10/21 19:55 Temperature 98.3 F 98.3 F Temperature Source Oral Oral Pulse Rate 87 Pulse Rate [Right Radial] 87 Respiratory Rate 18 18 Blood Pressure 145/75 H Blood Pressure [Right Arm] 146/75 H Blood Pressure Mean [Right Arm] 98 Blood Pressure Source Automatic Cuff Blood Pressure Source [Right Arm] Automatic Cuff Blood Pressure Position Sitting Blood Pressure Position [Right Arm] Sitting 02 Sat by Pulse Oximetry 94 L Oxygen Delivery Method Room Air Room Air - Lab Data Lab results reviewed: Yes: I reviewed the patient's lab results. Lab Results 12/10/21 19:00: [place]st Clinic Negative [facility] [place] - General Stated complaint: neck pain Time Seen by Provider: 12/10/21 19:03 Mode of Arrival: Ambulatory Source of Information: Patient Limitations: No Limitations Description of Symptoms (Recalled from Triage Doc. by RN): Pt stated that she tested positive for strep on friday, and feels like its getting worse. HEENT Symptoms (Recalled from RN notes): Yes Resp Symptoms (Recalled from RN notes): No Skin Symptoms (Recalled from RN notes): No MS Symptoms (Recalled from RN notes): No Functional Status (Recalled from RN notes): n/a - History of Present Illness Provider Complaint: She is with complaints of having a very sore throat. She is being treated for strep throat but she states that she is not getting any better. - Related Data Home Medications Medication Instructions Recorded Confirmed lisinopriL [Lisinopril] 10 mg PO DAILY 12/10/21 Previous Rx's Medication Instructions Recorded Fluticasone Propionate [Flonase 1 spr NS DAILY #1 each 11/22/21 50mcg nasal spray 16gm] Azithromycin [Z-Darnell 250mg Tab*] 250 mg PO UD DOSE PK #6 tab 12/10/21 Brompheniramine/Pseudoephed/Dm 5 ml PO Q6HP PRN #240 ml 12/10/21 [Bromfed Dm Cough Syrup] methylPREDNISolone [Medrol] 4 mg PO DIRECTED 6 Days #21 12/10/21 packet Allergies Allergy/AdvReac Type Severity Reaction Status Date / Time adhesive tape AdvReac Intermediate Verified 12/07/21 13:30 - Worker's Comp Is this a Worker's Comp case?: No [facility] History - Hepatitis A Screen Drug use history?: No High risk sexual behaviors?: No History of sexually transmitted infection?: No Currently employed?: No Childcare worker?: No Do you have indoor plumbing?: Yes Do you have electricity?: Yes Attestation statement:: This patient has been screened for Hepatitis A risk factors. I have reviewed the patient's past medical history: Yes Medical History: Reports:: Asthma, Deep Vein Thrombosis, Diabetes Mellitus Type 2, Gastroesophageal Reflux Disease(GERD), Hypertension, Migraine Denies:: Cancer, Diabetes Mellitus Type 1, Internal Pacemaker, MRSA, Seizures Other Medical History: Denies: Blood Transfusion Reaction Comm
[2021-12-10 19:17] LABS: UTC Pregnancy Test, Urine Negative (Negative)
[2021-12-10 19:55] VITALS: BP 145/75; PULSE 87; RESP 18; TEMP 36.8; O2SAT 94
== END 2021-12-10 19:55 | disposition home or self-care (01) ==
PROVIDERS: Emergency Provider Nurse Practitioner Family; PCP Physician Assistant
DX: J02.0 Streptococcal pharyngitis (principal); I10 Essential (primary) hypertension; E11.9 Type 2 diabetes mellitus without complications; F17.210 Nicotine dependence, cigarettes, uncomplicated
CPT/HCPCS: 81025; 99212; G0463

== ENCOUNTER → 2022-01-04 12:03 | Outpatient (CLI) | payer MEDICAID, SELFPAY ==
--- NOTE | 2022-01-04 12:07 | XR_ITS ---
FINAL REPORT CLINICAL HISTORY: back pain FINDINGS: CERVICAL SPINE Four views were obtained. There is no acute fracture. There is no malalignment. The disc spaces are preserved. There is no soft tissue abnormality. IMPRESSION: No acute bony abnormality. Reviewed, Interpreted and Dictated by Justin Garcia MD Transcribed by Agata Francois Authenticated by Justin Garcia MD on 01/04/2022 01:29:07 PM [facility]
== END ==
PROVIDERS: PCP Physician Assistant; Visit Provider Orthopaedic Surgery
DX: M25.512 Pain in left shoulder (principal); M54.5 Low back pain
CPT/HCPCS: 72050

== ENCOUNTER 2022-01-17 12:11 | Emergency (ER) | payer MEDICAID, SELFPAY ==
[2022-01-17 12:35] VITALS: BP 132/93; PULSE 101; RESP 19; TEMP 37.1; O2SAT 91; BMI 52.0
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
[2022-01-17 12:40] VITALS: BP 132/93; PULSE 101; RESP 19; TEMP 37.1
[2022-01-17 12:41] LABS: Adenovirus,PCR Not Detected (NotDetected); Bordetella Pertussis Not Detected (NotDetected); Chlamydophila Pneumoniae, PCR Not Detected (NotDetected); Coronavirus 19, PCR Not Detected (NotDetected); Coronavirus 229E Not Detected (NotDetected); Coronavirus NL63 Not Detected (NotDetected); Coronavirus OC43 Not Detected (NotDetected); Coronovirus HKU1,PCR Not Detected (NotDetected); Human Metapneumovirus Not Detected (NotDetected); Influenza A, PCR Not Detected (NotDetected); Influenza AH1, 2009 Not Detected (NotDetected); Influenza AH1, PCR Not Detected (NotDetected); Influenza AH3,PCR Not Detected (NotDetected); Influenza B, PCR Not Detected (NotDetected); Mycoplasma Pneumoniae, PCR Not Detected (NotDetected); Parainfluenza 1, PCR Not Detected (NotDetected); Parainfluenza 2, PCR Not Detected (NotDetected); Parainfluenza 3, PCR Not Detected (NotDetected); Parainfluenza 4, PCR Not Detected (NotDetected); Rhinovirus/Enterovirus Not Detected (NotDetected)
[2022-01-17 15:09] LABS: Respiratory Syncytial Virus Detected (NotDetected)
== END 2022-01-17 12:43 | disposition home or self-care (01) ==
PROVIDERS: Emergency Provider Nurse Practitioner Family; PCP Physician Assistant
DX: J06.9 Acute upper respiratory infection, unspecified (principal); B34.9 Viral infection, unspecified; J45.909 Unspecified asthma, uncomplicated
CPT/HCPCS: 87581; 87632; 87798; 99212; C9803; G0463; U0003; U0005

== ENCOUNTER → 2022-01-30 08:05 | Outpatient (CLI) | payer MEDICAID, SELFPAY ==
--- NOTE | 2022-01-30 08:05 | CA_ITS ---
FINAL REPORT TECHNIQUE: Grayscale, color Doppler and duplex Doppler ultrasound of the kidneys, aorta and renal arteries was performed. Multiple velocities were measured. CLINICAL HISTORY: .htn, obesity FINDINGS: Aorta velocity: 155.1 cm/sec Right kidney: 9.8 cm. No evidence of hydronephrosis or mass. Cortical thickness and echogenicity is within normal limits. Right intrarenal RI: 0.65 Right renal artery velocity: 161 cm/sec. Right RAR (Renal artery-Aortic Ratio): 1.04 Left Kidney: 11.5 cm. No evidence of hydronephrosis or mass. Cortical thickness and echogenicity is within normal limits. Left intrarenal RI: 0.63 Left renal artery velocity: 181 cm/sec. Left RAR (Renal Artery-Aortic Ratio): 1.17 IMPRESSION: Borderline peak systolic velocity on the left with a normal ratio and normal resistive indices. No evidence of significant renal artery stenosis given borderline velocity on the left. Consider CTA if indicated. Reviewed, Interpreted and Dictated by Marie Peres MD Transcribed by Agata Francois Authenticated by Marie Peres MD on 01/30/2022 04:57:18 PM [facility]
== END ==
PROVIDERS: PCP Physician Assistant; Visit Provider Nurse Practitioner Family
DX: I10 Essential (primary) hypertension (principal)
CPT/HCPCS: 93976

== ENCOUNTER 2022-03-13 18:49 | Emergency (ER) | payer MEDICAID, SELFPAY ==
[2022-03-13 18:59] VITALS: BP 134/96; PULSE 82; RESP 14; TEMP 36.9; O2SAT 95; BMI 39.4
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
[2022-03-13 19:34] VITALS: BP 134/96; PULSE 82; RESP 14; TEMP 36.9
== END 2022-03-13 19:34 | disposition home or self-care (01) ==
PROVIDERS: Emergency Provider Nurse Practitioner Family; PCP Physician Assistant
DX: L25.9 Unspecified contact dermatitis, unspecified cause (principal)
CPT/HCPCS: 99212; G0463

== ENCOUNTER 2022-03-26 16:06 | Emergency (ER) | payer MEDICAID, SELFPAY ==
[2022-03-26 16:30] VITALS: BP 129/86; PULSE 81; RESP 18; TEMP 36.9; O2SAT 99; BMI 41.9
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
[2022-03-26 17:27] VITALS: BP 129/86; PULSE 81; RESP 18; TEMP 36.9; O2SAT 99
== END 2022-03-26 17:33 | disposition home or self-care (01) ==
PROVIDERS: Emergency Provider Nurse Practitioner; PCP Physician Assistant
DX: S00.93XA Contusion of unspecified part of head, initial encounter (principal); W22.8XXA Striking against or struck by other objects, initial encounter; Y99.0 Civilian activity done for income or pay
CPT/HCPCS: 99212; G0463

== ENCOUNTER 2022-04-15 13:38 | Emergency (ER) | payer OTHER, MEDICAID, SELFPAY ==
--- NOTE | 2022-04-15 13:50 | XR_ITS ---
FINAL REPORT CLINICAL HISTORY: pain FINDINGS: RIGHT FOOT 3 views of the right foot were obtained. There is no acute fracture or dislocation. Visualized joint spaces are normally aligned. There is a small posterior calcaneal spur. Soft tissues are unremarkable. IMPRESSION: No acute bony abnormality. Reviewed, Interpreted and Dictated by Jose Sagastume III, MD Transcribed by Karmen Colunga Authenticated and [facility]
--- NOTE | 2022-04-15 13:50 | XR_ITS ---
FINAL REPORT CLINICAL HISTORY: pain FINDINGS: RIGHT ANKLE 3 views of the right ankle were obtained. There is no acute fracture or dislocation. The mortise is intact. Visualized joint spaces are normally aligned. Soft tissues are unremarkable. IMPRESSION: No acute bony abnormality. Reviewed, Interpreted and Dictated by Jose Sagastume III, MD Transcribed by Karmen Colunga Authenticated and [facility]
[2022-04-15 14:22] VITALS: BP 129/88; PULSE 80; RESP 18; TEMP 36.8; O2SAT 95; BMI 37.3
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
[2022-04-15 15:02] VITALS: BP 129/88; PULSE 80; RESP 18; TEMP 36.8
== END 2022-04-15 15:03 | disposition home or self-care (01) ==
PROVIDERS: Emergency Provider Nurse Practitioner Family; PCP Physician Assistant
DX: R53.82 Chronic fatigue, unspecified; I10 Essential (primary) hypertension; K21.9 Gastro-esophageal reflux disease without esophagitis; E11.65 Type 2 diabetes mellitus with hyperglycemia; M77.00 Medial epicondylitis, unspecified elbow; E55.9 Vitamin D deficiency, unspecified; G43.909 Migraine, unspecified, not intractable, without status migrainosus; G40.909 Epilepsy, unspecified, not intractable, without status epilepticus; G47.33 Obstructive sleep apnea (adult) (pediatric); J45.909 Unspecified asthma, uncomplicated; E66.9 Obesity, unspecified; F32.A Depression, unspecified; F41.9 Anxiety disorder, unspecified; F17.210 Nicotine dependence, cigarettes, uncomplicated; Z79.1 Long term (current) use of non-steroidal anti-inflammatories (NSAID); Z91.048 Other nonmedicinal substance allergy status
CPT/HCPCS: 73610; 73630; 99213; G0463

== ENCOUNTER 2022-05-07 15:39 | Emergency (ER) | payer MEDICAID, SELFPAY ==
[2022-05-07 16:15] VITALS: BP 129/86; PULSE 80; RESP 16; TEMP 36.6; O2SAT 98; BMI 47.6
--- NOTE | 2022-05-07 16:54 | EXP.UTC ---
Discharge Plan Disposition Patient Disposition: Home, Self-Care Condition: Good Prescriptions Prescriptions: No Action amlodipine [Norvasc] 5 mg tablet 5 mg PO DAILY Qty: 30 2RF lisinopril 10 mg tablet 10 mg PO DAILY Qty: 30 1RF simethicone [Gas-X Extra Strength] 125 mg capsule 125 mg PO QPCHS Qty: 120 0RF ibuprofen 800 MG tablet 800 mg PO Q8HP PRN (Reason: Moderate Pain) Qty: 30 0RF Referrals Follow up/Referrals: Maria Isabel Garrido PA [Primary Care Provider] - See instructions Activity Restrictions/Add. Instructions Additional Instructions/Restrictions: Over the counter Motrin/Ibuprofen may help with pain Warm soaks in warm water and epson salt may help with discomfort Follow up with your Family Doctor if no improvement or any worsening of symptoms Straight to ER if any life threatening symptoms Clinical Impressions Clinical Impression: Sciatica Stand Alone Forms Stand Alone Forms: Work/School Release Discharge ED Provider: Kanika Le [facility] General Stated complaint: Hip right pain Mode of Arrival: Ambulatory Source of Information: Patient Limitations: No Limitations Time Seen by Provider: 05/07/22 16:54 Description of Symptoms (Recalled from Triage Doc. by RN): PATIENT C/O RIGHT HIP PAIN X 2 DAYS. NO KNOWN INJURY HEENT Symptoms (Recalled from RN notes): No Resp Symptoms (Recalled from RN notes): No Skin Symptoms (Recalled from RN notes): No MS Symptoms (Recalled from RN notes): Yes Functional Status (Recalled from RN notes): WNL History of Present Illness Provider Complaint: Patient states that she started having pain last night in her right hip area that radiates from her right buttock into hip and upper leg and hurts when she walks or raises that leg States that she had to leave work and wasnt able to go in tonight because it was still hurting Related Data Previous Rx's Medication Instructions Recorded amlodipine 5 mg tablet (Norvasc) 5 mg PO DAILY #30 tabs 01/01/22 lisinopril 10 mg tablet 10 mg PO DAILY high blood pressure 01/01/22 #30 tabs simethicone 125 mg capsule (Gas-X 125 mg PO QPCHS #120 caps 01/29/22 Extra Strength) ibuprofen 800 mg tablet 800 mg PO Q8HP PRN Moderate Pain 08/08/22 #30 tabs Allergies Allergy/AdvReac Type Severity Reaction Status Date / Time adhesive tape AdvReac Intermediate Verified 04/26/22 08:27 Worker's Comp Is this a Worker's Comp case?: No PFSH PFSH Medical History (Updated 05/07/22 @ 17:15 by Kanika Le APRN) Anxiety Asthma Depression Fatigue Hyperglycemia Hypertension Migraine NOE (obstructive sleep apnea) Urinary tract infection Vitamin D deficiency (~12/21/17) Social History (Updated 05/07/22 @ 16:31 by Isamar Bianchi RN) Smoking Status: Current every day smoker tobacco type: cigarettes packs per day: 1 second hand exposure: Yes alcohol intake: never substance use type: denies use current occupational status: other household members: family housing: house 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 [employer] current occupational exposures/hazards: No caffeine: No ROS Obtained: Yes All systems reviewed & no additional complaints except as documented and Yes Systems reviewed as appropriate & no additional complaints except as documented Constitutional Constitutional: Reports system reviewed and no additional complaints, except as documented and Reports as per HPI ENT Ears, Nose, Mouth, and Throat: Reports system reviewed and no additional complaints, except as documented and Reports as per HPI Cardiovascular Cardiovascular: Reports system reviewed and no additional complaints, except as documented and Reports as per HPI Musculoskeletal Musculoskeletal: Reports other (reports pain with movement in left buttock area that goes into upper leg ) Comments: Denies loss of control of bowel or bladder Physical Exam General General appearance: alert and in no apparent distress
[2022-05-07 17:32] VITALS: BP 129/86; PULSE 80; RESP 16; TEMP 36.6; O2SAT 98
== END 2022-05-07 17:39 | disposition home or self-care (01) ==
PROVIDERS: Emergency Provider Nurse Practitioner; PCP Physician Assistant
DX: M54.31 Sciatica, right side (principal)
CPT/HCPCS: 96372; 99212; G0463

== ENCOUNTER 2022-05-11 17:41 | Emergency (ER) | payer MEDICAID, SELFPAY ==
[2022-05-11 18:00] VITALS: BP 182/106; PULSE 100; RESP 22; TEMP 36.8; O2SAT 97; BMI 17.6
--- NOTE | 2022-05-11 18:24 | EXP.UTC ---
Discharge Plan Disposition Patient Disposition: Home, Self-Care Condition: Good Prescriptions Prescriptions: No Action amlodipine [Norvasc] 5 mg tablet 5 mg PO DAILY Qty: 30 2RF lisinopril 10 mg tablet 10 mg PO DAILY Qty: 30 1RF simethicone [Gas-X Extra Strength] 125 mg capsule 125 mg PO QPCHS Qty: 120 0RF ibuprofen 800 MG tablet 800 mg PO Q8HP PRN (Reason: Moderate Pain) Qty: 30 0RF Referrals Follow up/Referrals: Maria Isabel Garrido PA [Primary Care Provider] - See instructions Activity Restrictions/Add. Instructions Additional Instructions/Restrictions: Take Ibuprofen/Tylenol as needed for pain. Follow up with PCP. Clinical Impressions Clinical Impression: Low back pain Stand Alone Forms Stand Alone Forms: Work/School Release Instructions Patient Instructions: DI for Low Back Pain Discharge ED Provider: Christine Pavon [facility] [place] HPI General Stated complaint: AO09/03@1715 back injury Mode of Arrival: Ambulatory Source of Information: Patient Limitations: No Limitations Time Seen by Provider: 05/11/22 18:14 Description of Symptoms (Recalled from Triage Doc. 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 She reports that this happened approximately 30 minutes prior to arrival. She denies taking anything for the pain. Reports that pain radiates to her left buttock and shoots down her leg. Related Data Previous Rx's Medication Instructions Recorded amlodipine 5 mg tablet (Norvasc) 5 mg PO DAILY #30 tabs 01/01/22 lisinopril 10 mg tablet 10 mg PO DAILY high blood pressure 01/01/22 #30 tabs simethicone 125 mg capsule (Gas-X 125 mg PO QPCHS #120 caps 01/29/22 Extra Strength) ibuprofen 800 mg tablet 800 mg PO Q8HP PRN Moderate Pain 04/15/22 #30 tabs Allergies Allergy/AdvReac Type Severity Reaction Status Date / Time adhesive tape AdvReac Intermediate Verified 04/26/22 08:27 Worker's Comp Is this a Worker's Comp case?: No PFSH PFSH Medical History (Updated 05/11/22 @ 18:54 by Christine Pavon APRN) Anxiety Asthma Depression Fatigue Hyperglycemia Hypertension Migraine NOE (obstructive sleep apnea) Urinary tract infection Vitamin D deficiency (~12/21/17) Social History (Updated 05/07/22 @ 17:35 by Kanika Le APRN) Smoking Status: Current every day smoker tobacco type: cigarettes packs per day: 1 second hand exposure: Yes alcohol intake: never substance use type: denies use current occupational status: other Travel in the last 8 weeks: None household members: family housing: house 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 [employer] current occupational exposures/hazards: No caffeine: No ROS Obtained: Yes All systems reviewed & no additional complaints except as documented Constitutional Constitutional: Reports system reviewed and no additional complaints, except as documented ENT Ears, Nose, Mouth, and Throat: Reports system reviewed and no additional complaints, except as documented Cardiovascular Cardiovascular: Reports system reviewed and no additional complaints, except as documented Respiratory Respiratory: Reports system reviewed and no additional complaints, except as documented Musculoskeletal Musculoskeletal: Reports as per HPI and Reports back pain Integumentary/Breasts Skin/Breast: Reports system reviewed and no additional complaints, except as documented Neurologic Neurologic: Reports system reviewed and no additional complaints, except as documented Physical Exam General General appearance: alert and in no apparent distress ENT E
[2022-05-11 18:55] VITALS: BP 182/106; PULSE 100; RESP 22; TEMP 36.8; O2SAT 97
== END 2022-05-11 18:57 | disposition home or self-care (01) ==
PROVIDERS: Emergency Provider Nurse Practitioner Family; PCP Physician Assistant
DX: M54.50 Low back pain, unspecified (principal)
CPT/HCPCS: 99212; G0463

== ENCOUNTER → 2022-05-29 14:31 | Outpatient (CLI) | payer MEDICAID, SELFPAY ==
[2022-05-29 14:55] LABS: Basophils # 0.2 K/mm3 (0-0.2); Basophils % 2.1 % (0.1-2.0); Eosinophils # 0.2 K/mm3 (0.0-0.4); Eosinophils % 2.7 % (0.1-12.0); Hematocrit 43.9 % (37.0-47.0); Hemoglobin 14.1 g/dL (12.2-16.2); Lymphocytes # 2.6 K/mm3 (0.7-4.5); Lymphocytes % 36.8 % (10-50); Mean Corpuscular HGB Conc 32.1 g/dL (31.8-35.4); Mean Corpuscular Hemoglobin 30.9 pg (27.0-31.2); Mean Corpuscular Volume 96.3 fl (81-99); Mean Platelet Volume 7.8 fl (7.4-10.4); Monocytes # 0.4 K/mm3 (0.1-1.0); Monocytes % 5.3 % (1.7-9.3); Neutrophils # 3.7 K/mm3 (1.8-7.8); Neutrophils % 53.2 % (37.0-80.0); Platelet Count 268 K/mm3 (142-424); Red Blood Count 4.56 M/mm3 (4.20-5.40); Red Cell Distribution Width 13.9 % (11.5-17.5)
[2022-05-29 15:17] LABS: Alanine Aminotransferase 19 U/L (12-78); Albumin Level 4.1 g/dl (3.5-5.0); Albumin/Globulin Ratio 1.5 (1.1-1.8); Alkaline Phosphatase 63 U/L (38-126); Anion Gap 13.2 mEq/L (5-15); Aspartate Amino Transferase 20 U/L (14-36); Bilirubin,Total 0.2 mg/dl (0.2-1.3); Blood Urea Nitrogen 16 mg/dl (7-17); Calcium 8.9 mg/dl (8.4-10.2); Carbon Dioxide 27 mmol/L (22.0-30.0); Chloride 104 mmol/L (98-107); Cholesterol 211 mg/dl (140-200); Estimated Glomerular Filt Rate 87 ml/min (>60); GFR (African American) 106 ML/MIN (>60); Globulin 2.7 g/dL (1.3-3.2); Glucose 89 mg/dl (74-100); HDL Cholesterol 35 mg/dl (40-60); Potassium 4.2 mmoL/L (3.5-5.1); Sodium 140 mmol/L (136-145); Total Protein,Serum 6.8 g/dl (6.3-8.2); Triglycerides 200 mg/dl (30-150); VLDL Cholesterol 40 mg/dL (0-40)
[2022-05-29 15:28] LABS: Direct LDL Cholesterol 141.86 mg/dL (100-129)
[2022-05-29 15:35] LABS: 25-OH Vitamin D, Total 32.4 ng/mL (30-100)
[2022-05-29 15:48] LABS: Thyroid Stimulating Hormone 3.74 uIU/mL (0.465-4.68)
[2022-05-30 08:53] LABS: HCG Qualitative, Serum Negative (Negative)
== END ==
PROVIDERS: PCP Physician Assistant; Visit Provider Nurse Practitioner Family
DX: R61 Generalized hyperhidrosis (principal); R53.83 Other fatigue; E66.01 Morbid (severe) obesity due to excess calories; Z68.41 Body mass index [BMI] 40.0-44.9, adult
CPT/HCPCS: 36415; 80053; 80061; 82306; 84443; 84703; 85025

== ENCOUNTER 2022-07-30 19:16 | Emergency (ER) | payer MEDICAID, SELFPAY ==
[2022-07-30 19:35] VITALS: BP 139/96; PULSE 79; RESP 18; TEMP 36.8; O2SAT 98; BMI 41.3
[2022-07-30 19:47] LABS: UTC Strep Screen (Rapid) Negative (Negative)
--- NOTE | 2022-07-30 19:50 | EXP.UTC ---
Discharge Plan Disposition Patient Disposition: Home, Self-Care Condition: Good Prescriptions Prescriptions: No Action amlodipine [Norvasc] 5 mg tablet 5 mg PO DAILY Qty: 30 2RF lisinopril 10 mg tablet 10 mg PO DAILY Qty: 30 1RF simethicone [Gas-X Extra Strength] 125 mg capsule 125 mg PO QPCHS Qty: 120 0RF Benadryl Extra Strength 2-0.1 % cream 1 applic topical BID Qty: 28.3 0RF triamcinolone acetonide 0.1 % cream 1 applic topical BID Qty: 30 0RF ibuprofen 800 MG tablet 800 mg PO Q8HP PRN (Reason: Moderate Pain) Qty: 30 0RF Referrals Follow up/Referrals: Maria Isabel Garrido PA [Primary Care Provider] - See instructions Activity Restrictions/Add. Instructions Additional Instructions/Restrictions: *Monitor Temp, Over the counter Motrin or Tylenol as directed/as needed Tylenol every 4 hours and Motrin every 6 hours (as long as your family doctor has told you that you can take it) for fever or pain. and straight to ER if unable to lower temp less than 101.0 after medication given *Warm salt water gargles may help to soothe the throat *Throat Lozenges? *Warm fluids like tea with honey may help to soothe the throat? *Sleep elevated *Humidifier/Vaporizer Your throat swab was sent for culture. Those results are typically sent to your primary care. Be sure to follow up in 2-3 days with your family doctor/primary care physician if no improvement so they can review those result and treat if necessary. If you don?t have a primary care doctor, I recommend you get one but in the mean time, you will have to return to a walk in clinic Follow up IMMEDIATELY for new or worsening symptoms or no Noticeable improvement over the next 48-72 hours. 911 for difficulty breathing or swallowing Clinical Impressions Clinical Impression: Sore throat (viral) Stand Alone Forms Stand Alone Forms: Work/School Release Instructions Patient Instructions: Sore Throat Discharge ED Provider: Kanika Le [facility] General Stated complaint: SORE THROAT Mode of Arrival: Ambulatory Source of Information: Patient Limitations: No Limitations Time Seen by Provider: 07/30/22 19:50 Description of Symptoms (Recalled from Triage Doc. by RN): PATIENT C/O RIGHT SIDE THROAT PAIN SINCE LAST NIGHT HEENT Symptoms (Recalled from RN notes): Yes Resp Symptoms (Recalled from RN notes): No Skin Symptoms (Recalled from RN notes): No MS Symptoms (Recalled from RN notes): No Functional Status (Recalled from RN notes): WNL History of Present Illness Provider Complaint: Patient state that she has been having pain in the right side of her throat since last night States that today she has continued to have pain and worried she may have strep throat Related Data Previous Rx's Medication Instructions Recorded amlodipine 5 mg tablet (Norvasc) 5 mg PO DAILY #30 tabs 01/01/22 lisinopril 10 mg tablet 10 mg PO DAILY high blood pressure 01/01/22 #30 tabs simethicone 125 mg capsule (Gas-X 125 mg PO QPCHS #120 caps 01/29/22 Extra Strength) ibuprofen 800 mg tablet 800 mg PO Q8HP PRN Moderate Pain 04/15/22 #30 tabs diphenhydramine-zinc acetate 2 1 applic topical BID #28.3 grams 05/29/22 %-0.1 % topical cream (Benadryl Extra Strength) triamcinolone acetonide 0.1 % 1 applic topical BID #30 grams 05/29/22 topical cream Allergies Allergy/AdvReac Type Severity Reaction Status Date / Time adhesive tape AdvReac Intermediate Verified 06/12/22 14:43 Worker's Comp Is this a Worker's Comp case?: No PFSH PFSH Medical History (Updated 07/30/22 @ 19:55 by Kanika Le APRN) Anxiety Asthma Depression Fatigue Hyperglycemia Hypertension Migraine NOE (obstructive sleep apnea) Urinary tract infection Vitamin D deficiency (~12/21/17) Surgical History H/O exploratory laparotomy History of knee surgery Social History (Updated 07/10
[2022-07-30 19:54] VITALS: BP 139/96; PULSE 79; RESP 18; TEMP 36.8; O2SAT 98
== END 2022-07-30 20:04 | disposition home or self-care (01) ==
PROVIDERS: Emergency Provider Nurse Practitioner; PCP Physician Assistant
DX: J02.9 Acute pharyngitis, unspecified (principal); R73.9 Hyperglycemia, unspecified; R53.82 Chronic fatigue, unspecified; I10 Essential (primary) hypertension; G47.33 Obstructive sleep apnea (adult) (pediatric); E55.9 Vitamin D deficiency, unspecified; G43.909 Migraine, unspecified, not intractable, without status migrainosus; J45.909 Unspecified asthma, uncomplicated; F32.A Depression, unspecified; F41.9 Anxiety disorder, unspecified; F17.210 Nicotine dependence, cigarettes, uncomplicated; Z79.1 Long term (current) use of non-steroidal anti-inflammatories (NSAID); Z79.899 Other long term (current) drug therapy; Z91.048 Other nonmedicinal substance allergy status
CPT/HCPCS: 87880; 99213; G0463

== ENCOUNTER 2022-10-23 21:42 | Emergency (ER) | payer MEDICAID, SELFPAY ==
[2022-10-23 21:43] VITALS: BP 134/72; PULSE 89; RESP 19; TEMP 36.8; O2SAT 99; BMI 34.9
--- NOTE | 2022-10-23 23:30 | HMH.EDNVD ---
Discharge Plan Disposition Patient Disposition: Home, Self-Care Prescriptions Prescriptions: New ondansetron HCl 4 mg Tablet 4 mg PO Q8H PRN (Reason: Nausea) Qty: 10 0RF No Action amlodipine [Norvasc] 5 mg tablet 5 mg PO DAILY Qty: 30 2RF lisinopril 10 mg tablet 10 mg PO DAILY Qty: 30 1RF simethicone [Gas-X Extra Strength] 125 mg capsule 125 mg PO QPCHS Qty: 120 0RF methylprednisolone 4 mg tablets,dose pack See Rx Instructions PO PER PKG DIR Qty: 21 0RF Rx Instructions: PO PER PKG DIR amoxicillin-pot clavulanate 875-125 mg tablet 1 tab PO BID 10 Days Qty: 20 0RF ibuprofen 800 MG tablet 800 mg PO Q8HP PRN (Reason: Moderate Pain) Qty: 30 0RF Referrals Follow up/Referrals: Maria Isabel Garrido PA [Primary Care Provider] - See instructions Clinical Impressions Clinical Impression: Gastroenteritis Instructions Patient Instructions: DI for Diarrhea and Traveler's Diarrhea -- Adult, DI for Nausea -- Adult Discharge ED Provider: Serina (ED)Lj Nausea/Vomiting/Diarrhea HPI General Chief complaint: Nausea/Vomiting/Diarrhea Stated complaint: V&D weakness Time Seen by Provider: 10/23/22 22:40 Mode of Arrival: Ambulatory Source of Information: Patient and Medical Record Limitations: No Limitations Description of Symptoms (Recalled from ER Triage Doc. by RN): 27 F presents with sudden onset of nausea/vomiting/diarrhea. Patient denies fever, chills, abdominal pain. History of Present Illness HPI Narrative: n/v with diarrhea which started tonight - no abd pain MD complaint: nausea and vomiting Onset (ago): hour(s) Associated Abdominal Pain: No Severity: moderate Associated symptoms: denies other symptoms Related Data Previous Rx's Medication Instructions Recorded amlodipine 5 mg tablet (Norvasc) 5 mg PO DAILY #30 tabs 01/01/22 lisinopril 10 mg tablet 10 mg PO DAILY high blood pressure 01/01/22 #30 tabs simethicone 125 mg capsule (Gas-X 125 mg PO QPCHS #120 caps 01/29/22 Extra Strength) ibuprofen 800 mg tablet 800 mg PO Q8HP PRN Moderate Pain 04/15/22 #30 tabs amoxicillin 875 mg-potassium 1 tab PO BID 10 days #20 tabs 09/30/22 clavulanate 125 mg tablet methylprednisolone 4 mg tablets in See Rx Instructions PO PER PKG DIR 09/30/22 a dose pack #21 tabs ondansetron HCl 4 mg tablet 4 mg PO Q8H PRN Nausea #10 tabs 10/23/22 Allergies Allergy/AdvReac Type Severity Reaction Status Date / Time adhesive tape AdvReac Intermediate Verified 06/12/22 14:43 PFSH PFS Disclaimer: The information contained in this section may have been updated after the patient was seen, as this information can be updated by other users. 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
--- NOTE | 2022-10-23 23:34 | PC.NURSE ---
ER speaking with pt at this time
[2022-10-23 23:38] VITALS: BP 142/77; PULSE 71; O2SAT 95
[2022-10-23 23:52] VITALS: BP 119/73; PULSE 81; RESP 18; TEMP 36.6; O2SAT 97
== END 2022-10-23 23:54 | disposition home or self-care (01) ==
PROVIDERS: Emergency Provider Emergency Medicine; PCP Physician Assistant
DX: K52.9 Noninfective gastroenteritis and colitis, unspecified (principal); F41.8 Other specified anxiety disorders; J45.909 Unspecified asthma, uncomplicated; I10 Essential (primary) hypertension; G43.909 Migraine, unspecified, not intractable, without status migrainosus; E55.9 Vitamin D deficiency, unspecified; Z87.440 Personal history of urinary (tract) infections
CPT/HCPCS: 99283; 99284

== ENCOUNTER → 2022-12-13 15:29 | Outpatient (CLI) | payer MEDICAID, SELFPAY ==
--- NOTE | 2022-12-13 16:22 | XR_ITS ---
FINAL REPORT CLINICAL HISTORY: chest pain COMPARISON: 08/03/2021 FINDINGS: TWO-VIEW CHEST The heart size is normal. The mediastinum is normal. The lungs are clear. There is no pneumothorax. IMPRESSION: No acute cardiopulmonary process. Reviewed, Interpreted and Dictated by Justin Garcia MD Transcribed by Ning Rivera Authenticated and [facility]
[2022-12-13 17:01] LABS: Basophils # 0.1 K/mm3 (0-0.2); Basophils % 1.1 % (0.1-2.0); Eosinophils # 0.2 K/mm3 (0.0-0.4); Eosinophils % 2.3 % (0.1-12.0); Lymphocytes # 1.7 K/mm3 (0.7-4.5); Lymphocytes % 26.3 % (10-50); Mean Corpuscular HGB Conc 31.6 g/dL (31.8-35.4); Mean Corpuscular Hemoglobin 29.5 pg (27.0-31.2); Mean Corpuscular Volume 93.2 fl (81-99); Mean Platelet Volume 8.8 fl (7.4-10.4); Monocytes # 0.3 K/mm3 (0.1-1.0); Monocytes % 5.2 % (1.7-9.3); Neutrophils # 4.3 K/mm3 (1.8-7.8); Neutrophils % 65.1 % (37.0-80.0); Platelet Count 119 K/mm3 (142-424); Red Blood Count 6.11 M/mm3 (4.20-5.40); Red Cell Distribution Width 13.8 % (11.5-17.5); White Blood Count 6.5 K/mm3 (4.8-10.8)
== END ==
PROVIDERS: PCP Physician Assistant; Visit Provider Student in an Organized Health Care Education/Training Program
DX: R07.9 Chest pain, unspecified (principal)
CPT/HCPCS: 36415; 71046; 85025

== ENCOUNTER 2022-12-14 23:15 | Emergency (ER) | payer MEDICAID, SELFPAY ==
[2022-12-15 00:05] VITALS: BP 158/95; PULSE 80; RESP 18; TEMP 36.6; O2SAT 98; BMI 30.1
--- NOTE | 2022-12-15 00:15 | ECG_ITS ---
APPROVED REPORT Exam: Resting ECG HR:72 bpm ECG Measurements Heart Rate 72 AXES MN 125 P 22 QRSd 90 QRS 72 QT 373 T 5 QTc 397 Conclusion SINUS RHYTHM NORMAL ECG UNCONFIRMED REPORT Electronically signed by : Mik Canchola MD 12/16/2022 20:23:29
--- NOTE | 2022-12-15 00:15 | XR_ITS ---
PROCEDURE INFORMATION: Exam: XR Chest Exam date and time: 12/15/2022 1:14 AM Age: 27 years old Clinical indication: Pain; Chest pressure; Additional info: Chest pain TECHNIQUE: Imaging protocol: Radiologic exam of the chest. Views: 2 views. COMPARISON: CR XR CHEST 2V 12/13/2022 4:23 PM FINDINGS: Lungs: Unremarkable. No consolidation. Pleural spaces: Unremarkable. No pleural effusion. No pneumothorax. Heart/Mediastinum: Unremarkable. No cardiomegaly. Bones/joints: Unremarkable. IMPRESSION: No acute findings.
--- NOTE | 2022-12-15 00:16 | CT_ITS ---
PROCEDURE INFORMATION: Exam: CTA Chest With Contrast Exam date and time: 12/15/2022 1:30 AM Age: 27 years old Clinical indication: Pain; Chest pressure; Additional info: Chest pain TECHNIQUE: Imaging protocol: Computed tomographic angiography of the chest with contrast. 3D rendering (Not supervised by radiologist): MIP and/or 3D reconstructed images were created by the technologist. Radiation optimization: All CT scans at this facility use at least one of these dose optimization techniques: automated exposure control; mA and/or kV adjustment per patient size (includes targeted exams where dose is matched to clinical indication); or iterative reconstruction. Contrast material: ISOVUE; Contrast volume: 70 ml; Contrast route: INTRAVENOUS (IV); REPORTING DATA: Count of CT and Cardiac NM exams in prior 12 months: This patient has received 0 known CTs and 0 known cardiac nuclear medicine studies in the 12 months prior to the current study. COMPARISON: CT ANGIO CHEST PE PROTOCOL 08/03/2021 6:18 PM FINDINGS: Pulmonary arteries: Normal. No pulmonary emboli. Aorta: Unremarkable. No aortic aneurysm. No aortic dissection. Lungs: There is a 2 mm left lower lobe lung nodule image 5/. Pleural spaces: Unremarkable. No pneumothorax. No pleural effusion. Heart: Unremarkable. No cardiomegaly. No pericardial effusion. Lymph nodes: Unremarkable. No enlarged lymph nodes. Bones/joints: Unremarkable. No acute fracture. Soft tissues: Unremarkable. IMPRESSION: 1. No evidence for pulmonary embolus. 2. No focal infiltrates. 3. There is a 2 mm left lower lobe lung nodule image 5/77.
--- NOTE | 2022-12-15 00:58 | HMH.EDCP ---
Discharge Plan Disposition Patient Disposition: Home, Self-Care Chief Complaint: Chest Pain Prescriptions Prescriptions: No Action No Known Home Medications Referrals Follow up/Referrals: Maria Isabel Garrido PA [Primary Care Provider] - See instructions Clinical Impressions Clinical Impression: Chest pain Instructions Patient Instructions: DI for Atypical Chest Pain Discharge ED Provider: Serina (RUBI)Lj Chest Pain HPI General Chief Complaint: Chest Pain Stated Complaint: Possible blood clot,Dr. Referred Time Seen by Provider: 12/15/22 00:58 Mode of Arrival: Ambulatory Source of Information: Patient and Medical Record Limitations: No Limitations Description of Symptoms (Recalled from ER Triage Doc. by RN): Pt states that she began having chest pain and left arm pain in her left arm evening while she was at work. States she left work that evening because the pain was severe and she was unable to work Friday. States that Friday she went to the [facility] where labs were drawn and an ekg. State that she received a call later that night telling her that her labs were abnormal so she should go to the ED for evaluation. Patient states that tonight she came to the ED to evaluate her labs to ensure that she doesnt have a pe. States that she has continually had chest pain but its in her left upper chest near her shoulder and down into her left arm and its worse with activity. History of Present Illness HPI narrative: pt with episodes of chest pain and was seen in clinic and asked to be seen in ed - pt has hx of noe and tob use but no pul emboli or dvt complaint: chest pain Onset (ago): day(s) Duration: intermittent Activity at onset: during rest Pain location: left chest Severity: moderate Quality: sharp Pain radiation: LUE Exacerbating factors: inspiration Risk Factors for CAD: Family Hx of CAD and Smoking MARIN Score for Non-Stemi Age of Patient: <30 years old Heart Rate: 70-89 bpm Systolic Blood Pressure: 140-159 mmHg Serum Creatinine: 0.80-1.19 mg/dl CHF Killip Class: I-No CHF Other Risk Factors: None Non-Stemi Risk Score: 40 Risk Stratification: 1-108 = Low Risk Related Data Home Medications Medication Instructions Recorded Confirmed No Known Home Medications 12/13/22 12/13/22 Allergies Allergy/AdvReac Type Severity Reaction Status Date / Time adhesive tape AdvReac Intermediate Verified 12/13/22 14:38 PFSH PFS Disclaimer: The information contained in this section may have been updated after the patient was seen, as this information can be updated by other users. 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
[2022-12-15 01:08] LABS: Urine Pregnancy, HCG Qual. Negative (Negative)
[2022-12-15 01:10] LABS: Basophils # 0.1 K/mm3 (0-0.2); Basophils % 0.8 % (0.1-2.0); Eosinophils # 0.1 K/mm3 (0.0-0.4); Eosinophils % 2.1 % (0.1-12.0); Hematocrit 45.6 % (37.0-47.0); Hemoglobin 14.7 g/dL (12.2-16.2); Lymphocytes # 2.6 K/mm3 (0.7-4.5); Mean Corpuscular HGB Conc 32.1 g/dL (31.8-35.4); Mean Corpuscular Volume 93.5 fl (81-99); Mean Platelet Volume 7.7 fl (7.4-10.4); Monocytes # 0.4 K/mm3 (0.1-1.0); Monocytes % 5.8 % (1.7-9.3); Neutrophils # 3.7 K/mm3 (1.8-7.8); Neutrophils % 54.2 % (37.0-80.0); Platelet Count 264 K/mm3 (142-424); Red Blood Count 4.88 M/mm3 (4.20-5.40); Red Cell Distribution Width 13.5 % (11.5-17.5); White Blood Count 6.9 K/mm3 (4.8-10.8)
[2022-12-15 01:12] LABS: Alanine Aminotransferase 18 U/L (12-78); Albumin Level 4.4 g/dl (3.5-5.0); Albumin/Globulin Ratio 1.4 (1.1-1.8); Alkaline Phosphatase 45 U/L (38-126); Anion Gap 4.6 mEq/L (5-15); Aspartate Amino Transferase 22 U/L (14-36); Bilirubin,Total 0.6 mg/dl (0.2-1.3); Blood Urea Nitrogen 14 mg/dl (7-17); Calcium 9.1 mg/dl (8.4-10.2); Carbon Dioxide 32 mmol/L (22.0-30.0); Chloride 103 mmol/L (98-107); Creatinine Clearance Estimated 160 mL/min (50-200); Estimated Glomerular Filt Rate 87 ml/min (>60); GFR (African American) 105 ML/MIN (>60); Globulin 3.1 g/dL (1.3-3.2); Glucose 84 mg/dl (74-100); Potassium 3.6 mmoL/L (3.5-5.1); Sodium 136 mmol/L (136-145); Total Protein,Serum 7.5 g/dl (6.3-8.2)
[2022-12-15 01:27] LABS: Troponin I < 0.01 ng/ml (0.00-0.034)
[2022-12-15 02:55] VITALS: BP 134/76; PULSE 74; RESP 16; TEMP 36.6; O2SAT 97
== END 2022-12-15 03:02 | disposition home or self-care (01) ==
PROVIDERS: Emergency Provider Emergency Medicine; PCP Physician Assistant
DX: R07.89 Other chest pain (principal); M79.602 Pain in left arm
CPT/HCPCS: 71046; 71275; 80053; 81025; 84484; 85025; 93005; 99285; Q9967

== ENCOUNTER 2022-12-17 17:40 | Emergency (ER) | payer MEDICAID, SELFPAY ==
[2022-12-17 18:00] VITALS: BP 135/90; PULSE 102; RESP 20; TEMP 37.5; O2SAT 98; BMI 45.3
[2022-12-17 18:10] LABS: Apearance,Urine Cloudy (Clear); Bilirubin,Urine Negative (Negative); Blood, Urine Negative (Negative); Color,Urine Dark Yellow (Yellow); Glucose,Urine (UA) Negative (Negative); Ketones,Urine Negative (Negative); PH,Urine 5.5 (5.0-8.5); Protein,Urine Negative (Negative); UTC Leukocyte Esterase,Urine Negative (Negative); UTC Nitrate,Urine Negative (Negative); Urobilinogen,Urine 0.2 EU/dl (0.2)
[2022-12-17 18:10] LABS: UTC Pregnancy Test, Urine Negative (Negative)
--- NOTE | 2022-12-17 18:12 | EXP.UTC ---
Discharge Plan Disposition Patient Disposition: Left Against Medical Advice Condition: Good Prescriptions Prescriptions: No Action No Known Home Medications Referrals Follow up/Referrals: Maria Isabel Garrido PA [Primary Care Provider] - See instructions Activity Restrictions/Add. Instructions Additional Instructions/Restrictions: Go straight to ER if any life threatening symptoms Follow up with your Family Doctor if needed or no improvement Return if needed Clinical Impressions Clinical Impression: Left lower quadrant pain Discharge ED Provider: Kanika Le [facility] [place] General Stated complaint: Lower Abd Pain Time Seen by Provider: 12/17/22 18:12 History of Present Illness Provider Complaint: Patient states that she started having pain in her left lower abdomen that has been consistent for the last couple of house and has not got any better States that pain has not radiated anywhere States that she rates pain a 7/10 at this time and very uncomfortable Denies fever, denies urinary problems and states that last BM was yesterday and normal Related Data Home Medications Medication Instructions Recorded Confirmed No Known Home Medications 12/13/22 12/13/22 Allergies Allergy/AdvReac Type Severity Reaction Status Date / Time adhesive tape AdvReac Intermediate Verified 12/17/22 18:16 [facility] Disclaimer: The information contained in this section may have been updated after the patient was seen, as this information can be updated by other users. 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 [employer] current occupational exposures/hazards: No caffeine: No ROS Obtained: Yes All systems reviewed & no additional complaints except as documented and Yes Systems reviewed as appropriate & no additional complaints except as documented Constitutional Constitutional: Reports system reviewed and no additional complaints, except as documented, Reports as per HPI, Denies body ache and Denies fever(s) ENT Ears, Nose, Mouth, and Throat: Reports system reviewed and no additional complaints, except as documented and Reports as per HPI Cardiovascular Cardiovascular: Reports system reviewed and no additional complaints, except as documented and Reports as per HPI Respiratory Respiratory: Reports system reviewed and no additional complaints, except as documented and Reports as per HPI Gastrointestinal Gastrointestingal: Reports system reviewed and no additional complaints, except as documented, as per HPI and abdominal pain (pain in left lower abdomen rates pain 7/10) Physical Exam General General appearance: alert and in no apparent distress Respiratory Respiratory exam: Present normal lung sounds bilaterally; Absent respiratory distress Cardiovascular Cardiovascular exam: Present regular rate, normal rhythm and tachycardia Abdominal Exam Abdominal exam: Present soft and tenderness (reports tenderness with palpation in left lower abdomen) Neurological Exam Neurological exam: Present alert, oriented X3 and normal gait Medical Decision Making Dionisio Inquiry Pt receiving controlled substance: No Dionisio was queried for this patient: No Lab Data Lab Results 12/17/22 18:04: Urine Color Dark ye
[2022-12-17 19:05] VITALS: BP 135/90; PULSE 102; RESP 20; TEMP 37.5; O2SAT 98
== END 2022-12-17 19:05 | disposition left against medical advice (07) ==
LOC: UTC 18:19 → ER 18:21 → UTC 18:23
PROVIDERS: Emergency Provider Nurse Practitioner; PCP Physician Assistant
DX: R10.32 Left lower quadrant pain (principal); I10 Essential (primary) hypertension; E66.9 Obesity, unspecified; G47.33 Obstructive sleep apnea (adult) (pediatric); F17.210 Nicotine dependence, cigarettes, uncomplicated
CPT/HCPCS: 81003; 81025; 99212; 99214; G0463

== ENCOUNTER 2023-01-15 08:33 | Outpatient (CLI) | payer MEDICAID, SELFPAY ==
[2023-01-15 09:06] VITALS: BMI 39.4
[2023-01-15 09:11] VITALS: BP 126/77; PULSE 74; RESP 18; TEMP 36.2; O2SAT 98
[2023-01-15 09:30] LABS: HCG Qualitative, Serum Negative (Negative)
[2023-01-15 09:31] LABS: Anion Gap 15.5 mEq/L (5-15); Blood Urea Nitrogen 12 mg/dl (7-17); Calcium 8.9 mg/dl (8.4-10.2); Carbon Dioxide 31 mmol/L (22.0-30.0); Chloride 96 mmol/L (98-107); Creatinine Clearance Estimated 210 mL/min (50-200); Estimated Glomerular Filt Rate 87 ml/min (>60); GFR (African American) 105 ML/MIN (>60); Glucose 100 mg/dl (74-100); Potassium 3.5 mmoL/L (3.5-5.1); Sodium 139 mmol/L (136-145)
[2023-01-15 09:45] VITALS: BP 123/86; PULSE 58; RESP 17; O2SAT 100
== END 2023-01-15 10:10 | disposition home or self-care (01) ==
LOC: RAD 08:33
PROVIDERS: PCP Physician Assistant; Visit Provider Nurse Practitioner Family
DX: R06.09 Other forms of dyspnea (principal); R07.89 Other chest pain; I10 Essential (primary) hypertension; F17.200 Nicotine dependence, unspecified, uncomplicated; E66.9 Obesity, unspecified; Z68.42 Body mass index [BMI] 45.0-49.9, adult
CPT/HCPCS: 75574; 80048; 84703; Q9967

== ENCOUNTER 2023-01-19 14:21 | Emergency (ER) | payer MEDICAID, SELFPAY ==
--- NOTE | 2023-01-19 14:25 | XR_ITS ---
PROCEDURE INFORMATION: Exam: XR Left Humerus Exam date and time: 01/19/2023 2:27 PM Age: 27 years old Clinical indication: Injury or trauma; Fall; Blunt trauma (contusions or hematomas); Arm, upper; Left; Patient HX: Obese female fell yesterday. TECHNIQUE: Imaging protocol: Radiologic exam of the left humerus. Views: 2 or more views. COMPARISON: MR SHOULDER LT WO CON 11/15/2021 2:45 PM FINDINGS: Bones/joints: Normal. No acute fracture. No significant degenerative joint disease at the shoulder or elbow. Soft tissues: Normal. IMPRESSION: No acute findings.
--- NOTE | 2023-01-19 14:25 | XR_ITS ---
PROCEDURE INFORMATION: Exam: XR Left Knee Exam date and time: 01/19/2023 2:30 PM Age: 27 years old Clinical indication: Injury or trauma; Fall; Blunt trauma; Knee; Left; Patient HX: Obese female fell yesterday. TECHNIQUE: Imaging protocol: Radiologic exam of the left knee. Views: 3 views. COMPARISON: CA VENOUS DOPPLER LE LT 05/25/2020 3:33 PM FINDINGS: Bones/joints: Normal. Soft tissues: Normal. IMPRESSION: No acute abnormality. No acute fracture. No significant joint effusion or soft tissue swelling.
[2023-01-19 14:50] VITALS: BP 141/79; PULSE 78; RESP 18; TEMP 36.9; O2SAT 96; BMI 44.5
--- NOTE | 2023-01-19 15:11 | EXP.UTC ---
Discharge Plan Disposition Patient Disposition: Home, Self-Care Condition: Good Prescriptions Prescriptions: No Action No Known Home Medications Referrals Follow up/Referrals: Maria Isabel Garrido PA [Primary Care Provider] - See instructions Activity Restrictions/Add. Instructions Additional Instructions/Restrictions: Neopsporin to abrasion on knee after cleaning with antibacterial soap as directed on package Ice to area for 20 minutes every couple of hours may help with bruising Over the counter Motrin and/or Tylenol for pain Clinical Impressions Clinical Impression: Fall Instructions Patient Instructions: DI for Abrasion, Contusion Discharge ED Provider: Kanika Le [facility] [place] HPI General Stated complaint: AO@home 01/18 LT arm LT Knee pain Mode of Arrival: Ambulatory Source of Information: Patient Limitations: No Limitations Time Seen by Provider: 01/19/23 15:12 Description of Symptoms (Recalled from Triage Doc. by RN): PATIENT C/O LEFT SHOULDER AND LEFT KNEE PAIN AFTER FALLING YESTERDAY HEENT Symptoms (Recalled from RN notes): No Resp Symptoms (Recalled from RN notes): No Skin Symptoms (Recalled from RN notes): No MS Symptoms (Recalled from RN notes): Yes Functional Status (Recalled from RN notes): WNL History of Present Illness Provider Complaint: Patient states that she tripped and fell at a wedding yesterday and she has been having pain in her left upper arm and left knee where she has an abrasion States that it hurts when moves or walks so she came in Related Data Home Medications Medication Instructions Recorded Confirmed No Known Home Medications 12/13/22 01/15/23 Allergies Allergy/AdvReac Type Severity Reaction Status Date / Time adhesive tape AdvReac Intermediate Verified 01/15/23 09:12 Worker's Comp Is this a Worker's Comp case?: No [facility] Disclaimer: The information contained in this section may have been updated after the patient was seen, as this information can be updated by other users. Medical History (Updated 01/19/23 @ 15:19 by Kanika Le APRN) Anxiety Asthma Depression Fatigue Hyperglycemia Hypertension Migraine Obesity (BMI 30-39.9) NOE (obstructive sleep apnea) Urinary tract infection Vitamin D deficiency (~12/21/17) Surgical History H/O exploratory laparotomy History of knee surgery Social History Smoking Status: Current every day smoker tobacco type: cigarettes packs per day: 1 second hand exposure: Yes alcohol intake: never substance use type: denies use current occupational status: unemployed Travel in the last 8 weeks: None household members: family housing: house 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 [employer] current occupational exposures/hazards: No caffeine: No ROS Obtained: Yes All systems reviewed & no additional complaints except as documented and Yes Systems reviewed as appropriate & no additional complaints except as documented Constitutional Constitutional: Reports system reviewed and no additional complaints, except as documented and Reports as per HPI ENT Ears, Nose, Mouth, and Throat: Reports system reviewed and no additional complaints, except as documented and Reports as per HPI Cardiovascular Cardiovascular: Reports system reviewed and no additional complaints, except as documented and Reports as per HPI Respiratory Respiratory: Reports system reviewed and no additional complaints, except as documented and Reports as per HPI Gastrointestinal Gastrointestingal: Reports system reviewed and no additional complaints, except as documented and as per HPI Musculoskeletal Musculoskeletal: Reports system reviewed and no additional complaints, except as documented and Reports as per HPI Comments: Pain in left upper arm and knee after falling yesterday Has abrasion on knee Physical Exam Gener
[2023-01-19 15:21] VITALS: BP 141/79; PULSE 78; RESP 18; TEMP 36.9; O2SAT 96
== END 2023-01-19 15:49 | disposition home or self-care (01) ==
PROVIDERS: Emergency Provider Nurse Practitioner; PCP Physician Assistant
DX: M79.602 Pain in left arm (principal); M25.562 Pain in left knee; W01.10XA Fall on same level from slipping, tripping and stumbling with subsequent striking against unspecified object, initial encounter; F17.210 Nicotine dependence, cigarettes, uncomplicated; I10 Essential (primary) hypertension; J45.909 Unspecified asthma, uncomplicated; G47.33 Obstructive sleep apnea (adult) (pediatric); E66.01 Morbid (severe) obesity due to excess calories
CPT/HCPCS: 73060; 73562; 99212; 99214; G0463

== ENCOUNTER 2023-02-10 17:33 | Emergency (ER) | payer MEDICAID, SELFPAY ==
[2023-02-10 17:33] VITALS: BP 160/72; PULSE 127; RESP 16; TEMP 36.7; O2SAT 95; BMI 39.4
--- NOTE | 2023-02-10 17:44 | PC.NURSE ---
PRIYANKA KAY at
[2023-02-10 18:01] VITALS: BP 136/86; PULSE 118; O2SAT 98
--- NOTE | 2023-02-10 18:08 | PC.NURSE ---
benadryl 25 mg capsule ordered for pt per MD. order placed in [facility] was for 50mg capsule and split dose. unable to split 50 mg capsule. that order discontinued and correct order for 25 mg capsule placed.
--- NOTE | 2023-02-10 18:16 | HMH.EDGENADL ---
Discharge Plan Disposition Patient Disposition: Home, Self-Care Condition: Good Prescriptions Prescriptions: New cetirizine 10 mg capsule 10 mg PO DAILY PRN (Reason: allergy symptoms) Qty: 30 0RF Referrals Follow up/Referrals: Maria Isabel Garrido PA [Primary Care Provider] - See instructions Activity Restrictions/Add. Instructions Additional Instructions/Restrictions: You have been evaluated for insect bite or sting. It looks like a bee sting. You received a dose of Benadryl tonight, this should help with the swelling and allergic reaction. Continue taking daily cetirizine. Okay to use topical anti-itch cream. Okay to take Tylenol or Motrin for pain. Keep your ankle wrapped and elevated. Follow-up with your primary care doctor. Return to the emergency department for any new or worsening symptoms, difficulty breathing or any other concern Clinical Impressions Clinical Impression: Ankle pain, right, Bee sting Instructions Patient Instructions: DI for Insect Bites and Stings Discharge ED Provider: Lily Sheldon Adult HPI General Chief complaint: Allergic Reaction Stated complaint: Right ankle bite/ swelling Time Seen by Provider: 02/10/23 17:44 Mode of Arrival: Wheelchair Source of Information: Patient Limitations: No Limitations Description of Symptoms (Recalled from ER Triage Doc. by RN): 27 yo F presents to ED with c/o possible insect sting. pt reports approx 5-10 mins she was mowing her yard and states that she felt something sting her right ankle. upon assessment site has small pinpoint hole, with erthymea at the site. History of Present Illness HPI narrative: 27-year-old female presenting to the emergency department with injury to her right ankle. Incident happened just prior to arrival. She was mowing the lawn when she suddenly felt a sharp pain that was located in the front of her ankle. She has an area of redness, surrounding what appears to be a wound. Pain is described as sharp, stabbing. Now it is constant, burning. She has pain moving her ankle, due to the swelling. No other bites or stings. She is otherwise healthy, denies known allergies. No medications prior to arrival Related Data Previous Rx's Medication Instructions Recorded cetirizine 10 mg capsule 10 mg PO DAILY PRN allergy 02/10/23 symptoms #30 caps Allergies Allergy/AdvReac Type Severity Reaction Status Date / Time adhesive tape AdvReac Intermediate Verified 01/15/23 09:12 [facility] Disclaimer: The information contained in this section may have been updated after the patient was seen, as this information can be updated by other users. Medical History (Updated 02/10/23 @ 18:27 by Lily Sheldon DO) Anxiety Asthma Depression Fatigue Hyperglycemia Hypertension Migraine Obesity (BMI 30-39.9) NOE (obstructive sleep apnea) Urinary tract infection Vitamin D deficiency (~12/21/17) Surgical History H/O exploratory laparotomy History of knee surgery Social History Smoking Status: Current every day smoker tobacco type: cigarettes packs per day: 1 second hand exposure: Yes alcohol intake: never substance use type: denies use current occupational status: unemployed Travel in the last 8 weeks: None household members: family housing: house 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
[2023-02-10 18:31] VITALS: BP 133/78; PULSE 80; RESP 19; TEMP 36.8; O2SAT 98
== END 2023-02-10 18:33 | disposition home or self-care (01) ==
PROVIDERS: Emergency Provider Emergency Medicine; PCP Physician Assistant
DX: S90.861A Insect bite (nonvenomous), right foot, initial encounter (principal); W57.XXXA Bitten or stung by nonvenomous insect and other nonvenomous arthropods, initial encounter; I10 Essential (primary) hypertension; J45.909 Unspecified asthma, uncomplicated; F32.A Depression, unspecified; F41.9 Anxiety disorder, unspecified; F17.210 Nicotine dependence, cigarettes, uncomplicated
CPT/HCPCS: 99283; 99284

== ENCOUNTER → 2023-05-01 14:57 | Outpatient (CLI) | payer MEDICAID, SELFPAY ==
[2023-05-01 16:30] LABS: Basophils % 0.3 % (0.1-2.0); Eosinophils # 0.1 K/mm3 (0.0-0.4); Eosinophils % 1.7 % (0.1-12.0); Hematocrit 45.2 % (37.0-47.0); Hemoglobin 14.8 g/dL (12.2-16.2); Mean Corpuscular HGB Conc 32.7 g/dL (31.8-35.4); Mean Corpuscular Hemoglobin 30.9 pg (27.0-31.2); Mean Corpuscular Volume 94.4 fl (81-99); Mean Platelet Volume 7.6 fl (7.4-10.4); Monocytes # 0.4 K/mm3 (0.1-1.0); Monocytes % 5.5 % (1.7-9.3); Neutrophils # 5.1 K/mm3 (1.8-7.8); Neutrophils % 66.5 % (37.0-80.0); Platelet Count 230 K/mm3 (142-424); Red Blood Count 4.78 M/mm3 (4.20-5.40); Red Cell Distribution Width 13.2 % (11.5-17.5); White Blood Count 7.6 K/mm3 (4.8-10.8)
[2023-05-01 17:02] LABS: HCG Qualitative, Serum Negative (Negative)
[2023-05-01 17:07] LABS: Alanine Aminotransferase 23 U/L (12-78); Albumin Level 4.4 g/dl (3.5-5.0); Albumin/Globulin Ratio 1.4 (1.1-1.8); Alkaline Phosphatase 54 U/L (38-126); Anion Gap 18.4 mEq/L (5-15); Aspartate Amino Transferase 24 U/L (14-36); Bilirubin,Total 0.7 mg/dl (0.2-1.3); Blood Urea Nitrogen 13 mg/dl (7-17); Calcium 9.3 mg/dl (8.4-10.2); Carbon Dioxide 24 mmol/L (22.0-30.0); Chloride 103 mmol/L (98-107); Chol/HDL Ratio 5.9 (1-3.5); Cholesterol 223 mg/dl (140-200); Estimated Glomerular Filt Rate 87 ml/min (>60); GFR (African American) 105 ML/MIN (>60); Globulin 3.1 g/dL (1.3-3.2); Glucose 98 mg/dl (74-100); HDL Cholesterol 38 mg/dl (40-60); Potassium 4.4 mmoL/L (3.5-5.1); Sodium 141 mmol/L (136-145); Total Protein,Serum 7.5 g/dl (6.3-8.2); Triglycerides 194 mg/dl (30-150); VLDL Cholesterol 39 mg/dL (0-40)
[2023-05-01 17:18] LABS: Direct LDL Cholesterol 130.45 mg/dL (100-129)
[2023-05-01 17:24] LABS: T4 (Thyroxine) 10.4 ug/dl (5.53-11.0)
[2023-05-01 17:38] LABS: Thyroid Stimulating Hormone 2.07 uIU/mL (0.465-4.68)
[2023-05-01 21:27] LABS: Hemoglobin A1C 5.6 % (4.0-6.0)
[2023-05-06 23:08] LABS: Acetone <.010 g/dL (0.000-0.010); Butalbital <1 ug/mL (1-10); Chlordiazepoxide <0.1 ug/mL (0.1-0.9); Diazepam <0.1 ug/mL (0.1-0.9); Ethanol <.010 g/dL (0.000-0.010); Isopropanol <.010 g/dL (0.000-0.010); Pentobarbital <1 ug/mL (1-5)
== END ==
PROVIDERS: PCP Physician Assistant; Visit Provider Nurse Practitioner Family
DX: F33.1 Major depressive disorder, recurrent, moderate (principal); Z79.899 Other long term (current) drug therapy
CPT/HCPCS: 36415; 80053; 80061; 80306; 83036; 84436; 84443; 84703; 85025

== ENCOUNTER → 2023-06-18 15:28 | Outpatient (CLI) | payer MEDICAID, SELFPAY | PROVIDERS: PCP Nurse Practitioner Family; Visit Provider Nurse Practitioner Family | DX: H92.01 Otalgia, right ear (principal) | CPT/HCPCS: 87070 ==

== ENCOUNTER → 2023-07-02 13:16 | Outpatient (CLI) | payer MEDICAID, SELFPAY ==
--- NOTE | 2023-07-02 13:21 | US_ITS ---
PROCEDURE INFORMATION: Exam: US Left Breast, Complete US Right Breast, Complete MG Bilateral Screening 3D Mammography Exam date and time: 07/02/2023 2:12 PM Age: 27 years old Clinical indication: Screening examination; Family history of breast cancer in aunt TECHNIQUE: Imaging protocol: Complete ultrasound of all four quadrants of the left breast and the retroareolar regions, including ultrasound of the axilla when performed. Complete ultrasound of all four quadrants of the right breast and the retroareolar regions, including ultrasound of the axilla when performed. Bilateral Screening tomosynthesis and 2D mammography including computer-aided detection (CAD) when performed. COMPARISON: MG MM DIG SCREENING MAMM BI W/CAD 07/02/2023 1:19 PM FINDINGS: MAMMOGRAPHY: Breast composition: The breasts are almost entirely fatty. Mass: None. Architectural distortion: None. Calcifications: None. Asymmetric density: None. Skin thickening: None. Axillary adenopathy: None. ULTRASOUND: Right solid masses: None. Right cystic masses: None. Right architectural distortion: None. Right acoustical shadowing: None. Right skin thickening: None. Right axillary adenopathy: None. Left solid masses: None. Left cystic masses: None. Left architectural distortion: None. Left acoustical shadowing: None. Left skin thickening: None. Left axillary adenopathy: None. IMPRESSION: No mammographic or sonographic evidence of malignancy. Annual bilateral mammographic screening is recommended to commence at the age of 40 unless otherwise clinically indicated. ASSESSMENT: BI-RADS Category 1: Negative
== END ==
LOC: RAD 13:16
PROVIDERS: PCP Nurse Practitioner Family; Visit Provider Physician Assistant
DX: Z80.3 Family history of malignant neoplasm of breast (principal); Z80.41 Family history of malignant neoplasm of ovary; Z84.81 Family history of carrier of genetic disease
CPT/HCPCS: 76641; 77063; 77067

== ENCOUNTER → 2023-07-21 18:52 | Outpatient (CLI) | payer MEDICAID, SELFPAY ==
--- NOTE | 2023-07-21 18:53 | XR_ITS ---
PROCEDURE INFORMATION: Exam: XR Left Shoulder Exam date and time: 07/21/2023 7:07 PM Age: 27 years old Clinical indication: Pain; Shoulder; Left; Additional info: L shoulder pain per patient. No known injury. TECHNIQUE: Imaging protocol: Radiologic exam of the left shoulder. Views: 2 or more views. COMPARISON: MR SHOULDER LT WO CON 11/15/2021 2:45 PM FINDINGS: Bones/joints: Normal. No acute fracture identified. Hello lumen has Digna due Soft tissues: Normal. IMPRESSION: No acute findings.
== END ==
PROVIDERS: PCP Physician Assistant; Visit Provider Student in an Organized Health Care Education/Training Program
DX: J02.9 Acute pharyngitis, unspecified (principal); M25.512 Pain in left shoulder
CPT/HCPCS: 73030; 87070

== ENCOUNTER 2023-08-07 22:45 | Emergency (ER) | payer MEDICAID, SELFPAY ==
[2023-08-07 22:46] VITALS: BP 148/90; PULSE 86; RESP 18; TEMP 36.4; O2SAT 97; BMI 38.0
--- NOTE | 2023-08-07 23:29 | CT_ITS ---
PROCEDURE INFORMATION: Exam: CT Head Without Contrast Exam date and time: 08/07/2023 11:57 PM Age: 27 years old Clinical indication: Injury or trauma; Fall; Blunt trauma (contusions or hematomas); Additional info: Fall down steps, pain TECHNIQUE: Imaging protocol: Computed tomography of the head without contrast. Radiation optimization: All CT scans at this facility use at least one of these dose optimization techniques: automated exposure control; mA and/or kV adjustment per patient size (includes targeted exams where dose is matched to clinical indication); or iterative reconstruction. REPORTING DATA: Count of CT and Cardiac NM exams in prior 12 months: This patient has received 2 known CTs and 0 known cardiac nuclear medicine studies in the 12 months prior to the current study. COMPARISON: HEADWO CT head/brain wo con 02/01/2019 1:41 AM FINDINGS: Brain: Normal. No hemorrhage. Unremarkable white matter. No mass effect. Cerebral ventricles: No ventriculomegaly. Pituitary gland and sella: Negative Paranasal sinuses: Partial opacification ethmoid air cells. Mastoid air cells: Visualized mastoid air cells are well aerated. Orbital cavities: Negative. Parotid and submandibular glands: Negative Bones/joints: Unremarkable. No acute fracture. Soft tissues: Unremarkable. Vasculature: Negative. IMPRESSION: No evidence for intracranial hemorrhage, mass lesions or acute stroke.
--- NOTE | 2023-08-07 23:29 | CT_ITS ---
PROCEDURE INFORMATION: Exam: CT Cervical Spine Without Contrast Exam date and time: 08/07/2023 11:57 PM Age: 27 years old Clinical indication: Injury or trauma; Fall; Blunt trauma; Additional info: Fall down steps, pain TECHNIQUE: Imaging protocol: Computed tomography of the cervical spine without contrast. Radiation optimization: All CT scans at this facility use at least one of these dose optimization techniques: automated exposure control; mA and/or kV adjustment per patient size (includes targeted exams where dose is matched to clinical indication); or iterative reconstruction. REPORTING DATA: Count of CT and Cardiac NM exams in prior 12 months: This patient has received 2 known CTs and 0 known cardiac nuclear medicine studies in the 12 months prior to the current study. COMPARISON: CT CERVICAL SPINE WO CON 10/31/2020 12:17 AM FINDINGS: Bones/joints: No acute fracture. Normal alignment. No significant disc bulge or herniation. No severe spinal canal stenosis. No significant neural foraminal narrowing. Lungs: Lung apices are normal. Soft tissues: Unremarkable. IMPRESSION: No acute findings.
[2023-08-07 23:30] VITALS: BP 135/86; PULSE 81; O2SAT 96
--- NOTE | 2023-08-07 23:50 | PC.NURSE ---
Requested patient provide a urine sample at this time. Patient reports she is unable to urinate and that the last time she urinated was 6 hours ago. Patient reports she does not have to pee and does not wish to attempt to provide a urine at this time. Spoke with the provider about delay of lab results and provider states that patient can continue with radiology with patient informed consent.
--- NOTE | 2023-08-08 | CT_ITS ---
PROCEDURE INFORMATION: Exam: CT Thoracic Spine Without Contrast Exam date and time: 08/08/2023 12:00 AM Age: 27 years old Clinical indication: Injury or trauma; Fall; Blunt trauma (contusions or hematomas); Additional info: Fall down steps, pain TECHNIQUE: Imaging protocol: Computed tomography of the thoracic spine without contrast. Radiation optimization: All CT scans at this facility use at least one of these dose optimization techniques: automated exposure control; mA and/or kV adjustment per patient size (includes targeted exams where dose is matched to clinical indication); or iterative reconstruction. REPORTING DATA: Count of CT and Cardiac NM exams in prior 12 months: This patient has received 4 known CTs and 0 known cardiac nuclear medicine studies in the 12 months prior to the current study. COMPARISON: CT CERVICAL SPINE WO CON 08/07/2023 11:57 PM FINDINGS: Bones/joints: No acute fracture. Normal alignment. No significant disc bulge or herniation. No severe spinal canal stenosis. No significant neural foraminal narrowing. Soft tissues: Unremarkable. IMPRESSION: Unremarkable CT Spine.
--- NOTE | 2023-08-08 | CT_ITS ---
PROCEDURE INFORMATION: Exam: CT Lumbar Spine Without Contrast Exam date and time: 08/08/2023 12:03 AM Age: 27 years old Clinical indication: Injury or trauma; Fall; Blunt trauma (contusions or hematomas); Additional info: Fall down steps, pain TECHNIQUE: Imaging protocol: Computed tomography of the lumbar spine without contrast. Radiation optimization: All CT scans at this facility use at least one of these dose optimization techniques: automated exposure control; mA and/or kV adjustment per patient size (includes targeted exams where dose is matched to clinical indication); or iterative reconstruction. REPORTING DATA: Count of CT and Cardiac NM exams in prior 12 months: This patient has received 4 known CTs and 0 known cardiac nuclear medicine studies in the 12 months prior to the current study. COMPARISON: MR LUMBAR SPINE WO CON 09/06/2020 4:46 PM FINDINGS: Bones/joints: No acute fracture. Normal alignment. No significant disc bulge or herniation. No severe spinal canal stenosis. No significant neural foraminal narrowing. Soft tissues: Unremarkable. IMPRESSION: No acute findings.
--- NOTE | 2023-08-08 00:08 | HMH.EDGENADL ---
Discharge Plan Disposition Patient Disposition: Home, Self-Care Condition: Good Prescriptions Prescriptions: No Action tramadol 50 mg tablet 50 mg PO Q8H PRN (Reason: pain) Qty: 30 0RF desvenlafaxine succinate 50 mg tablet extended release 24 hr 50 mg PO ciprofloxacin-dexamethasone 0.3-0.1 % drops,suspension 4 drp otic (ear) BID 7 Days Qty: 7.5 0RF meloxicam 15 mg tablet 15 mg PO DAILY Qty: 30 2RF Referrals Follow up/Referrals: Maria Isabel Garrido PA [Primary Care Provider] - See instructions Activity Restrictions/Add. Instructions Additional Instructions/Restrictions: You were evaluated in the emergency department today. Take Tylenol and ibuprofen at home as needed for pain. Return to the emergency department for new or worsening symptoms. Clinical Impressions Clinical Impression: Fall down stairs Stand Alone Forms Stand Alone Forms: Work/School Release Instructions Patient Instructions: How to Prevent Falls, DI for Closed Head Injury Discharge ED Provider: Clara Vargas General Adult HPI General Chief complaint: PAIN Stated complaint: ao08/07@2200 fall back and neck pain Time Seen by Provider: 08/07/23 23:10 Mode of Arrival: Ambulatory Source of Information: Patient Limitations: No Limitations Description of Symptoms (Recalled from ER Triage Doc. by RN): Presents to ED with c/o neck and back pain after falling down 3 steps. 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 -LOC Patient denies History of Present Illness HPI narrative: This patient is a 27-year-old female with a history of obesity, PCOS, and hypertension presenting to the emergency department after a fall down 3 steps. She states that she was going up her porch steps when she fell backwards onto her back. She notes that she hit her head. She contains of head, neck, and back pain after the fall. No loss of consciousness. No numbness, tingling, or other concerns. No anticoagulation Related Data Home Medications Medication Instructions Recorded Confirmed desvenlafaxine succinate 50 mg 50 mg PO 06/18/23 08/07/23 tablet,extended release 24 hr Previous Rx's Medication Instructions Recorded ciprofloxacin 0.3 %-dexamethasone 4 drp otic (ear) BID 7 days #7.5 mL 07/21/23 0.1 % ear drops,suspension tramadol 50 mg tablet 50 mg PO Q8H PRN pain #30 tabs 07/28/23 meloxicam 15 mg tablet 15 mg PO DAILY #30 tabs 08/07/23 Allergies Allergy/AdvReac Type Severity Reaction Status Date / Time adhesive tape AdvReac Intermediate Verified 08/07/23 10:59 [facility] Disclaimer: The information contained in this section may have been updated after the patient was seen, as this information can be updated by other users. Medical History Anxiety Asthma Depression Fatigue Hyperglycemia Hypertension Migraine Obesity (BMI 30-39.9) NOE (obstructive sleep apnea) Urinary tract infection Vitamin D deficiency (~12/21/17) Surgical History H/O exploratory laparotomy History of knee surgery Family History Other No significant family history Social History Smoking Status: Current every day smoker tobacco type: cigarettes packs per day: 1 second hand exposure: Yes alcohol intake: never substance use type: denies use current occupational status: unemployed Travel in the last 8 weeks: None household members: family housing: house 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
[2023-08-08 00:46] VITALS: BP 138/72; PULSE 79; RESP 18; TEMP 36.4; O2SAT 98
== END 2023-08-08 00:48 | disposition home or self-care (01) ==
PROVIDERS: Emergency Provider Emergency Medicine; PCP Physician Assistant
DX: S09.90XA Unspecified injury of head, initial encounter (principal); E66.9 Obesity, unspecified; I10 Essential (primary) hypertension; F17.210 Nicotine dependence, cigarettes, uncomplicated; W10.8XXA Fall (on) (from) other stairs and steps, initial encounter
CPT/HCPCS: 70450; 72125; 72128; 72131; 99285

== ENCOUNTER 2023-08-13 15:00 | Outpatient (RCR) | payer MEDICAID, SELFPAY | END 2023-08-13 16:00 | disposition home or self-care (01) | LOC: OT 15:00 | PROVIDERS: PCP Physician Assistant; Visit Provider Internal Medicine | DX: M25.512 Pain in left shoulder (principal); M25.812 Other specified joint disorders, left shoulder | CPT/HCPCS: 97010; 97014; 97035; 97140; 97165; 97530; G0283 ==

== ENCOUNTER 2023-10-30 08:16 | Outpatient (CLI) | payer MEDICAID, SELFPAY ==
--- NOTE | 2023-10-30 08:21 | XR_ITS ---
FINAL REPORT CLINICAL HISTORY: right knee pain FINDINGS: RIGHT KNEE 3 views were obtained. There is no acute fracture or dislocation. The joint spaces are intact. There is no soft tissue abnormality. IMPRESSION: No acute bony abnormality. Reviewed, Interpreted and Dictated by Justin Garcia MD Transcribed by Kristina Valdez Authenticated and . [facility] [place]
== END 2023-10-30 23:59 ==
PROVIDERS: PCP Physician Assistant; Visit Provider Orthopaedic Surgery
DX: M25.561 Pain in right knee (principal)
CPT/HCPCS: 73562

== ENCOUNTER 2024-04-07 13:15 | Emergency (ER) | payer MEDICAID, SELFPAY ==
[2024-04-07 13:31] VITALS: BP 141/80; PULSE 76; RESP 16; TEMP 36.8; O2SAT 96; BMI 38.0
--- NOTE | 2024-04-07 14:03 | ED_ITS ---
<Statement entered by Myra Levy MD - 04/07/24 16:05> I was consulted by the FREDO, and we discussed the complexity of problems being addressed. I approved the treatment and management plan for this patient's care in the emergency department, thus performing a substantial portion of the medical decision making. Myra Levy MD Discharge Plan Disposition Patient Disposition: Home, Self-Care Condition: Good Prescriptions Prescriptions: No Action amoxicillin 875 mg tablet 875 mg PO BID Qty: 14 0RF cetirizine [Allergy Relief (cetirizine)] 10 mg tablet 10 mg PO DAILY PRN (Reason: allergy symptoms) Qty: 90 0RF desvenlafaxine succinate 50 mg tablet extended release 24 hr 50 mg PO Xifaxan 550 mg tablet 550 mg PO TID Qty: 30 0RF Referrals Follow up/Referrals: Maria Isabel Garrido PA [Primary Care Provider] - See instructions Activity Restrictions/Add. Instructions Additional Instructions/Restrictions: Follow-up with your PCP if your symptoms persist or for any worsening symptoms. Return to the ER as needed for any worsening signs or symptoms as needed. Clinical Impressions Clinical Impression: Abdominal pain, right lower quadrant Instructions Patient Instructions: DI for Acute Abdominal Pain Print Language Print Language: Amharic Discharge ED Provider: Clara Vargas General Adult HPI General Chief complaint: Abdominal Pain Stated complaint: lower abd Time Seen by Provider: 04/07/24 14:03 Mode of Arrival: Ambulatory Source of Information: Patient Limitations: No Limitations Description of Symptoms (Recalled from ER Triage Doc. by RN): Pt ambulatory to ED with cc of lower abdominal pain that started yesterday. Pt states not having a period for approx 2 years and having a hx of PCOS. Pt states it feels like a cyst History of Present Illness HPI narrative: Patient presents for evaluation of right lower quadrant abdominal pain. Patient states that she began having right lower quadrant abdominal pain yesterday. It has persisted without change since then. She denies chest pain fever chills hemoptysis hematochezia melena nausea vomiting diarrhea. Patient states that her last bowel movement was yesterday and it was normal. She has never had any abdominal surgery however she does have a history of polycystic ovary disease. Related Data Home Medications ?Medication ?Instructions ?Recorded ?Confirmed desvenlafaxine succinate 50 mg 50 mg PO 06/18/23 01/27/24 tablet,extended release 24 hr Previous Rx's ?Medication ?Instructions ?Recorded rifaximin 550 mg tablet (Xifaxan) 550 mg PO TID #30 tabs 12/31/23 amoxicillin 875 mg tablet 875 mg PO BID #14 tabs 01/27/24 cetirizine 10 mg tablet (Allergy 10 mg PO DAILY PRN allergy 01/27/24 Relief (cetirizine)) symptoms #90 tabs Allergies Allergy/AdvReac Type Severity Reaction Status Date / Time adhesive tape AdvReac Intermediate Verified 01/27/24 15:06 [facility] Disclaimer: The information contained in this section may have been updated after the patient was seen, as this information can be updated by other users. Medical History Depression Anxiety Urinary tract infection Migraine Asthma Hypertension Obesity (BMI 30-39.9) Vitamin D deficiency (~12/21/17) Hyperglycemia NOE (obstructive sleep apnea) Fatigue Surgical History H/O exploratory laparotomy History of knee surgery Family History Other No significant family history Social History Smoking Status: Current every day smoker tobacco type: cigarettes packs per day: 1 second hand exposure: Yes alcohol intake: never substance use type: denies use current occupational status: unemployed Travel in the last 8 weeks: None household members: family housing: house 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 [employer] current occupational exposures/hazards: No caffeine: No ROS Obtained: Yes Systems reviewed as appropriate & no additional complaints except as documented Physical Exam General General appearance: alert and in no apparent distress Respiratory Respiratory exam: Present normal lung sounds bilaterally Cardiovascular Cardiovascular exam: Present regular rate and normal rhythm Abdominal Exam Abdominal exam: Present soft (Obese), tenderness (Patient is tender to palpation only in the right lower quadrant without rebound or guarding or rigidity.) and normal bowel sounds; Absent guarding, rebound or rigidity Neurological Exam Neurological exam: Present alert and oriented X3 Medical Decision Making Medical Records Medical records reviewed: Yes I reviewed the patient's medical records. Dionisio Inquiry Pt receiving controlled substance: No Vital Signs: 04/07/24 13:31 Temperature 98.2 F Temperature Source Oral Pulse Rate [Left Radial] 76 Respiratory Rate 16 Blood Pressure [Right Arm] 141/80 H Blood Pressure Mean [Right Arm] 100 Blood Pressure Source [Right Arm] Automatic Cuff 02 Sat by Pulse Oximetry 96 Oxygen Delivery Method Room Air Lab Data Lab results reviewed: Yes I reviewed the patient's lab results. Lab Results 04/07/24 15:35: WBC 6.4, RBC 4.60, Hgb 14.8, Hct 44.0, MCV 95.6, MCH 32.1 H, MCHC 33.6, RDW 14.0, Plt Count 219, MPV 8.4, Neut % (Auto) 64.5, Lymph % (Auto) 28.2, [place] % (Auto) 4.6, Eos % (Auto) 1.8, Baso % (Auto) 1.0, Neut # (Auto) 4.1, Lymph # (Auto) 1.8, [place] # (Auto) 0.3, Eos # (Auto) 0.1, Baso # (Auto) 0.1, Sodium 141, Potassium 4.0, Chloride 106, Carbon Dioxide 29, Anion Gap 10.0, BUN 15, Creatinine 0.90, Estimated Creat Clear 178, Estimated GFR 75, Est GFR ( Amer) 91, Glucose 89, Lactate 0.9, Calcium 9.3, Total Bilirubin 0.9, AST 26, ALT 21, Alkaline Phosphatase 55, Total Protein 7.4, Albumin 4.4, Globulin 3.0, Albumin/Globulin Ratio 1.5, Serum HCG, Qual Negative 04/07/24 15:35 04/07/24 15:35 Orders (Tests/Meds): ED MEDICATIONS Discontinued Medications Generic Name Dose Route Start Last Admin Trade Name Freq PRN Reason Stop Dose Admin Acetaminophen 1,000 mg 04/07/24 14:05 04/07/24 15:59 Acetaminophen 1,000mg/100ml Vial IV 04/07/24 14:06 1,000 mg ONCE ONE Administration Lactated Ringer's 1,000 mls @ 999 mls/hr 04/07/24 14:05 04/07/24 16:00 Lactated Ringer's 1000 Ml Bag IV 04/07/24 15:05 999 mls/hr .Q1H1M ONE Administration Iopamidol 75 ml 04/07/24 16:29 04/07/24 16:29 Iopamidol-370 (76%);100ml Bottle IV 04/07/24 16:30 75 ml ONCE ONE Administration Ketorolac Tromethamine 15 mg 04/07/24 14:05 04/07/24 16:24 Ketorolac 30mg/Ml Vial IV 04/07/24 14:06 Not Given ONCE ONE Sodium Chloride 10 ml 04/07/24 16:29 04/07/24 16:29 Sodium Chloride 0.9% 10ml Syr (Rad Only) IV 04/07/24 16:30 10 ml ONCE ONE Administration ORDERS Category Date Time Status CT abdomen pelvis w con Stat Cat Scan 04/07/24 14:05 Completed US transvaginal Stat Exams 04/07/24 14:11 Completed CBC w/Auto Diff [Complete Blood Count Auto Diff] Stat Lab 04/07/24 15:35 Completed CMP [Comprehensive Metabolic Panel] Stat Lab 04/07/24 15:35 Completed HCG Qualitative, Serum Stat Lab 04/07/24 15:35 Completed Lactic Acid Stat Lab 04/07/24 15:35 Completed UA [Urinalysis and Microscopic] Stat Lab 04/07/24 14:05 Ordered Medical Decision Narrative: In summary patient is a 28-year-old female who presents to the emergency department for evaluation of right lower quadrant abdominal pain. Patient is hemodynamically stable upon arrival, afebrile. Physical exam is remarkable for tenderness to palpation diffusely in the right lower quadrant with no focal tenderness without rebound or guarding or rigidity and normal bowel sounds. Differential diagnosis includes constipation versus ovarian cyst versus tubal versus appendicitis versus kidney stone versus urinary tract infection etc. Initial workup will be conducted with hematologic labs transvaginal ultrasound CT scan abdomen pelvis with contrast urinalysis. Initial interventions include crystalloid bolus Toradol Tylenol. Initial workup reviewed by me shows that her hematologic labs are nonactionable and my informal interpretation of her CT scan abdomen pelvis shows no acute intra-abdominal processes prior to radiology read. Radiology reads however a transitional vertebra which could be sales representative business courses of Belotti syndrome. Patient advised to follow-up with her PCP if she has any back pain.. Upon repeat evaluation patient reported moderate reduction in her discomfort. Given this we have ruled out any serious or life-threatening cause of her abdominal discomfort. And while we do not have an explanation we also have no evidence of ovarian torsion acute appendicitis constipation bowel perforation kidney stone or kidney infection. Patient advised to follow-up with PCP for continued symptoms or return to ER as needed Critical Care Critical Care Time Critical Care Time: No
--- NOTE | 2024-04-07 14:05 | CT_ITS ---
PROCEDURE INFORMATION: Exam: CT Abdomen And Pelvis With Contrast Exam date and time: 04/07/2024 4:30 PM Age: 28 years old Clinical indication: Abdominal pain; Additional info: Rlq abdominal pain TECHNIQUE: Imaging protocol: Computed tomography of the abdomen and pelvis with contrast. Radiation optimization: All CT scans at this facility use at least one of these dose optimization techniques: automated exposure control; mA and/or kV adjustment per patient size (includes targeted exams where dose is matched to clinical indication); or iterative reconstruction. Contrast material: ISOVUE; Contrast volume: 75 ml; Contrast route: IV; COMPARISON: CT ABDOMEN PELVIS WO CON 04/17/2019 12:22 AM FINDINGS: Liver: Hepatomegaly, measuring 20.0 cm in craniocaudal axis. No focal liver lesions. Gallbladder and biliary ducts: Gallbladder contains gallstones. No gallbladder wall thickening or pericholecystic fluid. Pancreas: Unremarkable. Spleen: No splenomegaly. Adrenal glands: Unremarkable. Kidneys and ureters: No renal or ureteral stones. No hydronephrosis. Stomach and bowel: Unremarkable. Appendix: Appendix is visualized and is normal. Intraperitoneal space: No free fluid. No pneumoperitoneum. Vasculature: Unremarkable. Lymph nodes: Unremarkable. Urinary bladder: Unremarkable. Reproductive: Unremarkable. 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 No evidence of acute osseous abnormality. Soft tissues: Unremarkable. IMPRESSION: 1. No acute findings in the abdomen or pelvis. 2. Hepatomegaly. 3. Cholelithiasis without evidence of acute cholecystitis. 4. 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
--- NOTE | 2024-04-07 14:11 | US_ITS ---
PROCEDURE INFORMATION: Exam: US Duplex Artery and Vein of the Abdominal and/or Reproductive Organs. Complete Ovaries Exam date and time: 04/07/2024 2:52 PM Age: 28 years old Clinical indication: Pelvic pain; Additional info: Right lower quadrant abdominal pain, h/o pcos TECHNIQUE: Imaging protocol: Real-time duplex ultrasound scan of the arterial and venous flow with color Doppler flow and spectral waveform analysis with image documentation. Duplex exam was performed to evaluate for torsion and other vascular conditions. COMPARISON: US CA RENAL ARTERY DUPLEX 01/30/2022 8:16 AM FINDINGS: Right ovary/adnexa: Right ovary is normal in size for age. Color and spectral Doppler demonstrates normal ovarian arterial and venous blood flow. Left ovary/adnexa: Left ovary is normal in size for age. Color and spectral Doppler demonstrates normal ovarian arterial and venous blood flow. IMPRESSION: No evidence of ovarian torsion. PROCEDURE INFORMATION: Exam: US Pelvis, Transvaginal, Non-Obstetric Exam date and time: 04/07/2024 2:52 PM Age: 28 years old Clinical indication: Pelvic pain; Additional info: Right lower quadrant abdominal pain, h/o pcos TECHNIQUE: Imaging protocol: Real-time transvaginal pelvic (non-obstetric) ultrasound with image documentation. Transvaginal imaging was used for better evaluation of the endometrium, adnexa, and/or cervix. COMPARISON: US CA RENAL ARTERY DUPLEX 01/30/2022 8:16 AM FINDINGS: Uterus: Uterus is normal in size and echotexture for age. Endometrial stripe is within normal limits for age. Color Doppler demonstrates no abnormal vascularity within the endometrial canal. Right ovary/adnexa: Right ovary is normal in size for age and contains physiologic follicles. Color Doppler demonstrates blood flow in the ovary. Left ovary/adnexa: Left ovary is normal in size for age and contains physiologic follicles. Color Doppler demonstrates blood flow in the ovary. Urinary bladder: Unremarkable as visualized. Intraperitoneal space: No evidence of free fluid. IMPRESSION: No acute findings.
[2024-04-07] MEDS: ACETAMINOPHEN 1,000MG/100ML VIAL 1000 MG IV (15:59)
[2024-04-07] MEDS: LACTATED RINGERS 1000ML 1,000 ML 999 ML IV (16:00)
[2024-04-07 16:01] LABS: Basophils # 0.1 K/mm3 (0-0.2); Eosinophils # 0.1 K/mm3 (0.0-0.4); Eosinophils % 1.8 % (0.1-12.0); Hemoglobin 14.8 g/dL (12.2-16.2); Lymphocytes # 1.8 K/mm3 (0.7-4.5); Lymphocytes % 28.2 % (10-50); Mean Corpuscular HGB Conc 33.6 g/dL (31.8-35.4); Mean Corpuscular Hemoglobin 32.1 pg (27.0-31.2); Mean Corpuscular Volume 95.6 fl (81-99); Mean Platelet Volume 8.4 fl (7.4-10.4); Monocytes # 0.3 K/mm3 (0.1-1.0); Monocytes % 4.6 % (1.7-9.3); Neutrophils # 4.1 K/mm3 (1.8-7.8); Neutrophils % 64.5 % (37.0-80.0); Platelet Count 219 K/mm3 (142-424); White Blood Count 6.4 K/mm3 (4.8-10.8)
[2024-04-07 16:14] LABS: Albumin Level 4.4 g/dl (3.5-5.0); Chloride 106 mmol/L (98-107); HCG Qualitative, Serum Negative (Negative); Sodium 141 mmol/L (136-145)
[2024-04-07 16:17] LABS: Alanine Aminotransferase 21 U/L (12-78); Albumin/Globulin Ratio 1.5 (1.1-1.8); Alkaline Phosphatase 55 U/L (38-126); Aspartate Amino Transferase 26 U/L (14-36); Bilirubin,Total 0.9 mg/dl (0.2-1.3); Blood Urea Nitrogen 15 mg/dl (7-17); Carbon Dioxide 29 mmol/L (22.0-30.0); Creatinine Clearance Estimated 178 mL/min (50-200); Estimated Glomerular Filt Rate 75 ml/min (>60); GFR (African American) 91 ML/MIN (>60); Lactic Acid 0.9 mmol/L (0.7-2.1); Total Protein,Serum 7.4 g/dl (6.3-8.2)
[2024-04-07 16:18] LABS: Calcium 9.3 mg/dl (8.4-10.2); Glucose 89 mg/dl (74-100)
[2024-04-07] MEDS: SODIUM CHLORIDE 0.9% 10ML SYR (RAD ONLY) 10 ML IV (16:29)
[2024-04-07] MEDS: IOPAMIDOL-370 (76%);100ML BOTTLE 75 ML IV (16:29)
[2024-04-07 17:17] VITALS: BP 139/70; PULSE 71; RESP 18; TEMP 36.5; O2SAT 100
== END 2024-04-07 17:19 | disposition home or self-care (01) ==
PROVIDERS: Physician Assistant; Emergency Provider Emergency Medicine; PCP Physician Assistant
DX: R10.31 Right lower quadrant pain (principal); F17.210 Nicotine dependence, cigarettes, uncomplicated
CPT/HCPCS: 74177; 76830; 80053; 83605; 84703; 85025; 96361; 96374; 96375; 99285; J0131; J7120; Q9967

== ENCOUNTER 2024-05-21 13:45 | Outpatient (CLI) | payer MEDICAID, SELFPAY | END 2024-05-21 23:59 | disposition home or self-care (01) | LOC: LAB.DROPOF 05-24 12:19 | PROVIDERS: PCP Student in an Organized Health Care Education/Training Program; Visit Provider Student in an Organized Health Care Education/Training Program | DX: R05.9 Cough, unspecified (principal) | CPT/HCPCS: 87635 ==

== ENCOUNTER 2024-05-24 13:25 | Outpatient (CLI) | payer MEDICAID, SELFPAY ==
--- NOTE | 2024-05-24 13:30 | XR_ITS ---
FINAL REPORT CLINICAL HISTORY: cough COMPARISON: 12/15/2022 FINDINGS: 2 views of the chest were obtained . The heart is normal in size. The mediastinum is within normal limits. The lungs are clear. There is no pneumothorax. Osseous structures are unremarkable. IMPRESSION: No acute cardiopulmonary process. Reviewed, Interpreted and Dictated by Marie Peres MD Transcribed by Karmen Colunga Authenticated and [facility]
== END 2024-05-24 23:59 | disposition home or self-care (01) ==
LOC: RAD 13:28
PROVIDERS: PCP Physician Assistant; Visit Provider Student in an Organized Health Care Education/Training Program
DX: R05.9 Cough, unspecified (principal)
CPT/HCPCS: 71046

== ENCOUNTER 2025-03-19 10:40 | Outpatient (CLI) | payer SELFPAY ==
--- OUTSIDE RECORDS SUMMARY | 2025-03-21 10:45 | XMS_ITS | Clinical Summary ---
Author Organization [employer] [facility] Address [address] [place] [phone] Phone Care Team Providers Care Litigation Associate Name Role Phone Mary Turner PA-C Primary Care Physician [ ] Conditions or Problems Problem Name Problem Code Onset Date Status Entry Date Provider Comment Standard Description Annotate HEAD LICE PEDICULOS B85.2 (ICD-10-CM) Inactive Mary Turner PA-C Pediculosis, unspecified History of PREMATURE 120147891 (SNOMED CT) Active Christa Carmen MA Premature of 34 WEEKS GESTATION History of OBESITY NOS 006441753 (SNOMED CT) Active Christa Carmen MA Obesity History of ACNE 30920422 (SNOMED CT) Active Christa Carmen MA Acne Medications Medication Instructions Start Date Stop Date Generic Name [facility] Provider ULESFIA 5 % EXTERNAL LOTION APPLY TO HAIR, RINSE AFTER 10 MINUTES THEN REPEAT IN 1 WEEK BENZYL ALCOHOL [id number] Mary Turner PA-C Medications Administered No information available. Allergies, Adverse Reactions, Alerts Observed no known allergies at Results No information available. Plan of Care Type Date Detail Pending order Flu 3 yrs and ol catherine vfc Pending order Hep A pediatric/ adolescent dosage- 2 dose 2 schedule Procedures Code Procedure Name Date Entry Date CPT-[id number] Flu 3 yrs and older vfc 2009 CPT-[id number] Hep A pediatric/adol escent dosage- 2 dose 2 schedule Vital Signs Date Name Value Unit Description Body Temperature 97.6 [degF] temperat ure E&M Body Temperature 36.4 Ermelinda temperat ure in centigrade E&M BP Diastolic 80 mm[Hg] blood pressu re, diastolic BP Systolic 126 mm[Hg] blood pressur e, systolic Heart Rate 77 /min pulse rate Height 0 cm height in cent imeters E&M Weight Measured 198 [lb_av] weight E& M Weight Measured 198 [lb_av] weight E& M Weight Measured 90.00 kg weight in kilograms E&M BMI (Body Mass Index) 28.3 kg/m2 Bod y Mass Index (Ratio) Immunizations Vaccine Administration Date Standard Description CVX Co de Dose mmr #1 03 Unknown mmr #2 03 Unknown ipv #3 10 Unknown ipv #4 10 Unknown ipv #2 10 Unknown ipv #1 10 Unknown hib #3 17 Unknown dtap #4 20 Unknown dtap #5 20 Unknown hib #4 17 Unknown dtap #3 20 Unknown hib #1 17 Unknown varicella#1 21 Unknown dtap #2 20 Unknown hib #2 17 Unknown dtap #1 20 Unknown varicella#2 21 Unknown pneumovax 33 Unknown hpv #2 62 Unknown hepbvax#3 45 Unknown hpv #3 62 Unknown hepbvax#1 45 Unknown hpv #1 62 Unknown hepavax #1 85 Unknown flu vax 88 Unknown hepbvax#2 45 Unknown meningoc vax 32 0.0 tdap vax 115 0.0 flu vax#1 88 Unknown Advance Directives No information available.
--- OUTSIDE RECORDS SUMMARY | 2025-03-21 10:46 | XMS_ITS | Clinical Summary ---
Author Organization [facility] Address [address] [place] [id number] Phone [email or web address] Care Team Providers Care Tribal Delegate Name Role Phone Unavailable Primary Care Provider Unavailabl e Allergies Active Allergy Reactions Criticality Noted Date Comments Adhesive High 08/07/2023 Medications Vit-Fe Fumarate-FA ( VITAMIN) 27-0.8 MG tablet daily Active desvenlafaxine (PRISTIQ) 50 MG 24 hr tablet 50 mg. 06/17/2023 Active Active Problems Problem Noted Date Diagnosed Date Pain and swelling of knee, right 2023 Social History Tobacco Use Types Packs/Day Years Used Date Smoking Tobacco: Every Day Cigarettes Smokeless Tobacco: Never Tobacco Cessation:Ready to Q uit: Not Asked; Counseling Given: Not Answered Comments Unknown Sex and Gender Information Value Date Recorded Sex Assigned at Not on file Legal Sex Female 12:16 PM CDT Gender Identity Not on file Sexual Orientation Not on file Last Filed Vital Signs Vital Sign Reading Time Taken Comments Blood Pressure 174/99 2023 2:58 AM EST Pulse 104 2023 2:58 AM EST Temperature - - Respiratory Rate 20 2023 2:32 AM EST Oxygen Saturation 95% 2023 2:58 AM EST Inhaled Oxygen Concentration - - Weight - - Height - - Body Mass Index - - Plan of Treatment Health Maintenance Due Date Last Done Comments Dental Cleaning/Exam 1996 Hepatitis A Immunization (2 of 2 - 2-dose series) 01/20/2011 07/23/2010 Cervical Cancer Screening 2012 Tetanus Diphtheria and Pertussis Immunization (7 - Td or Tdap) 10/13/2017 10/13/2007, 11/03/2000, 10/13/1997, Additional history exists Covid-19 Immunization ( season) 2024 Influenza Immunization (#1) 05/09/202511/06, 07/23/2010, 10/13/2007 HIB Immunization Completed 10/13/1997, 01/1997, 02/10/1997, Additional history exists Polio Immunization Completed 11/03/2000, 0 04/12/1997, 02/10/1997, Additional history exists Pneumococcal: Ped (0 to 5 Yrs) and At-Risk Member (6 to 64 Yrs) Aged Out 12/03/2000 No longer eligible based on patient's age to complete this topic Meningococcal Immunization Discontinued 10/13/2007 HPV Immunization Completed 04/13/2009, , 10/13/2007 Varicella Immunization Completed 05/31/2009, 1999 Hepatitis B Immunization Completed 022, 04/12/1997, 1996, Additional history exists Insurance OPT OUT NO COPAY NB
--- OUTSIDE RECORDS SUMMARY | 2025-03-21 10:46 | XMS_ITS | Encounter Summary ---
Author Organization [facility] Address [address] [place] [address] Care Team Providers Care Nursing Administrator Name Role Phone Maria Isabel Garrido Primary Care Provider [phone] Encounter Details Date Type Department Care Team (Late st Contact Info) Description 12/15/2022 Orders Only External Location [address] [place] [phone] Provider, External Social History Tobacco Use Types Packs/Day Years Used Date Smoking Tobacco: Every Day Comments:Smokes 1/2 pack a d ay or less Alcohol Use Standard Drinks/Week Comments Yes 0 (1 standard drink = 0.6 oz pur e alcohol) Comments Unknown Sex and Gender Information Value Date Recorded Sex Assigned at Female 07/16/2023 4:02 PM EST Legal Sex Female 5:58 PM EDT Gender Identity Female 07/16/2023 4:02 PM EST Sexual Orientation Straight 07/16/2023 4: 02 PM EST documented as of this encounter Plan of Treatment Not on file documented as of this encounter Procedures Procedure Name Priority Date/Time Associated Diagnosis Comments CT OUTSIDE IMAGES 12/15/2022 1:30 AM EDT documented in this encounter Results * CT OUTSIDE IMAGES (12/15/2022 1:30 AM EDT) Anatomical Region Laterality Modality Computed Tomogra phy 12/15/2022 1:30 AM EDT us External Provider IMG CT PROCEDURES Final Result documented in this encounter Visit Diagnoses Not on filedocumented in this encounter Care Teams Nursing Administrator Relationship Specialty Start Date End Date Maria Isabel Garrido PA [address] [place] [address] PCP - General 01/19/21 documented as of this encounter
--- OUTSIDE RECORDS SUMMARY | 2025-03-21 10:46 | XMS_ITS | Clinical Summary ---
Author Organization [facility] Address [address] [place] [address] Care Team Providers Care Home Care Music Therapist Name Role Phone Maria Isabel Garrido Primary Care Provider [phone] Immunizations Immunization Administration Dates Next Due Influenza, Unspecified 11/18/2019 MMR 11/03/2000,10/13/1997 Tdap 10/13/2007 Varicella 10/09/1999 Family History Medical History Relation Name Comments Hypertension Father Conversions - Other Maternal Grandmother malignant neoplasm of ovary Arthritis Mother Cardiac disorder Mother Conversions - Other Mother deep yusuf ous thrombosis Diabetes Mother Fibromyalgia Mother Hypertension Mother Conversions - Other Paternal Grandmother Cancer of unknown origin Relation Name Status Comments Father Maternal Grandmother Mother Paternal Grandmother Social History Tobacco Use Types Packs/Day Years [...] Orientation Straight 07/16/2023 4: 02 PM EST Last Filed Vital Signs Vital Sign Reading Time Taken Comments Blood Pressure 144/91 01/02/2021 1:52 PM EDT Pulse 98 01/02/2021 1:52 PM EDT Temperature 37.1 C (98.8 F) 05/24/2020 2:47 PM EDT Respiratory Rate 16 09/30/2019 1:28 PM EST Oxygen Saturation - - Inhaled Oxygen Concentration - - Weight 126 kg (276 lb 14.4 oz) 01/02/2021 1:52 P M EDT Height 177.8 cm (5' 10 ) 01/02/2021 1:52 PM EDT Body Mass Index 39.73 01/02/2021 1:52 PM EDT Plan of Treatment Health Maintenance Due Date Last Done Comments [facility]-Depression Screening 1996 [facility]-Infant/Child/Adol SDOH Screenings 1996 [facility]-Varicella Vaccines (2 of 2 - 2-dose childhood series) 12/01/2000 10/09/1999 HPV Vaccines (2 - 2-dose series) 04/12/2008 10/13/2007 [facility]- SDOH Screenings 2014 [facility]-Adult SDOH Screenings 2014 [facility]-Pap Smear 2017 [facility]-DTaP,Tdap,and Td Vaccines (2 - Td or Tdap) 10/13/2017 10/13/2007 [facility]-Hepatitis B Vaccines (2 of 3 - 19+ 3-dose series) 05/10/2022 04/12/2022 [id number] Vaccine ( - 2023- season) 2024 [facility]-Influenza Vaccine (#1) 05/09/202511/17, 10/13/2007 [facility]-Zoster Vaccines (1 of 2) 2046 10/09/1999 [facility]-HIB Vaccines Aged Out No longer e ligible based on patient's age to complete this topic [facility]-Hepatitis A Vaccines Aged Out No longer eligible based on patient's age to complete this topic [facility]-IPV Vaccines Aged Out No longer e ligible based on patient's age to complete this topic [facility]-Pneumococcal Vaccine: Pediatrics (0 to 5 Years) and At-Risk Patients (6 to 49 Years) Aged Out No longer eligible b ased on patient's age to complete this topic [facility]-Rotavirus Vaccines Aged Out No lo nger eligible based on patient's age to complete this topic Insurance [employer] Care Teams Home Care Music Therapist Relationship Specialty Start Date End Date Maria Isabel Garrido PA [address] [place] [address] PCP - General 01/19/21
== END 2025-03-19 23:59 | disposition home or self-care (01) ==
LOC: LAB.DROPOF 03-21 10:41
PROVIDERS: PCP Physician Assistant; Visit Provider Student in an Organized Health Care Education/Training Program
DX: N39.0 Urinary tract infection, site not specified (principal)
CPT/HCPCS: 87086; 87088; 87186

== ENCOUNTER 2025-05-28 11:56 | Emergency (ER) | payer SELFPAY ==
--- NOTE | 2025-05-28 12:02 | CT_ITS ---
PROCEDURE INFORMATION: Exam: CT Abdomen And Pelvis With Contrast Exam date and time: 05/28/2025 1:30 PM Age: 29 years old Clinical indication: Abdominal pain; Additional info: Rlq abd pain TECHNIQUE: Imaging protocol: Computed tomography of the abdomen and pelvis with contrast. Radiation optimization: All CT scans at this facility use at least one of these dose optimization techniques: automated exposure control; mA and/or kV adjustment per patient size (includes targeted exams where dose is matched to clinical indication); or iterative reconstruction. Contrast material: ISOVUE; Contrast volume: 75 ml; Contrast route: IV; COMPARISON: CT ABDOMEN PELVIS W CON 04/07/2024 4:30 PM FINDINGS: Liver: Mild hepatomegaly. Gallbladder and biliary ducts: Cholelithiasis. No biliary dilation. Pancreas: Normal. Spleen: Normal. Adrenal glands: Normal. No mass. Kidneys and ureters: Normal. Stomach and bowel: Normal. Appendix: Appendix normal. Intraperitoneal space: Small amount of pelvic free fluid, likely physiologic. Vasculature: Unremarkable. No abdominal aortic aneurysm. Lymph nodes: Unremarkable. No enlarged lymph nodes. Urinary bladder: Unremarkable as visualized. Reproductive: Unremarkable as visualized. Bones/joints: No acute abnormality. Soft tissues: Normal. IMPRESSION: No acute abdominal or pelvic abnormality.
--- NOTE | 2025-05-28 12:03 | ED_ITS ---
Discharge Plan Disposition Patient Disposition: Home, Self-Care Prescriptions Prescriptions: New ondansetron 4 mg tablet,disintegrating 4 mg PO Q6H PRN (Reason: nausea and vomiting) Qty: 20 0RF No Action cefdinir 300 mg capsule 300 mg PO BID Qty: 20 0RF sulfamethoxazole-trimethoprim [Bactrim DS] 800-160 mg tablet 1 tab PO BID 7 Days Qty: 14 0RF Referrals Follow up/Referrals: Maria Isabel Garrido PA [Primary Care Provider, Medical] - See instructions Activity Restrictions/Add. Instructions Additional Instructions/Restrictions: Take Tylenol and ibuprofen as needed for pain. Take Zofran as needed for nausea and vomiting. Please return to the ER with any new, concerning, or worsening symptoms peer Clinical Impressions Clinical Impression: Abdominal pain, right lower quadrant Instructions Patient Instructions: DI for Acute Abdominal Pain Print Language Print Language: Setswana Discharge ED Provider: Justino Beck General Adult HPI General Chief complaint: Abdominal Pain Stated complaint: abd pain Time Seen by Provider: 05/28/25 11:57 Mode of Arrival: Ambulatory Source of Information: Patient Limitations: No Limitations History of Present Illness HPI narrative: This is a 29-year-old female with a past medical history of PCOS presenting with acute onset lower abdominal pain. States that it is somewhat generalized however worse on the right side. Began just prior to arrival when she was getting up out of bed to get ready for work. States that she is having difficulty walking because of the pain. Denies any fever. Denies any nausea and vomiting. Denies vaginal bleeding. Related Data Previous Rx's ?Medication ?Instructions ?Recorded cefdinir 300 mg capsule 300 mg PO BID #20 caps 03/19 sulfamethoxazole 800 1 tab PO BID 7 days #14 tabs 03/22/25 mg-trimethoprim 160 mg tablet (Bactrim DS) ondansetron 4 mg disintegrating 4 mg PO Q6H PRN nausea and 05/28/25 tablet vomiting #20 tabs Allergies Allergy/AdvReac Type Severity Reaction Status Date / Time adhesive tape AdvReac Intermediate rash Verified 03/19/25 16:49 [facility] Disclaimer: The information contained in this section may have been updated after the patient was seen, as this information can be updated by other users. Medical History Depression Anxiety Urinary tract infection Migraine Asthma Hypertension Obesity (BMI 30-39.9) Vitamin D deficiency (~12/21/17) Hyperglycemia NOE (obstructive sleep apnea) Fatigue Surgical History H/O exploratory laparotomy History of knee surgery Family History Other No significant family history Social History Smoking Status: Current every day smoker tobacco type: cigarettes packs per day: 1 second hand exposure: Yes alcohol intake: never substance use type: denies use current occupational status: unemployed Travel in the last 8 weeks?: None household members: family housing: house 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 [employer] current occupational exposures/hazards: No caffeine: No Have you lived/traveled outside US in past 30 days?: No Contact w/someone who lives/traveled outside US past 30 days?: No Exposure to someone with infectious disease in past 14 days?: No Do you have a fever (greater than 100.4 F or 38 C)?: No Have you tested positive for COVID-19?: No Exposed to someone with COVID-19 in past 14 days?: No Do you have a sore throat?: No Do you have a cough?: No Do you have any weakness?: No Do you have any diarrhea?: No Are you experiencing any unusual bleeding?: No Do you have any muscle aches/pain?: No Do you have any abdominal pain?: Yes Are you experiencing loss of taste or smell?: No Other Medical History Have you received the Flu Vaccine for this season: No Have you received the Pneumonia Vaccine: No ROS Obtained: Yes All systems reviewed & no additional complaints except as documented Physical Exam General General appearance: alert and in no apparent distress Head Head exam: atraumatic Eye Eye exam: Present normal appearance, PERRL and EOMI Neck Neck exam: Present normal inspection and full ROM Chest Chest inspection: Present symmetric chest wall rise Respiratory Respiratory exam: Present normal lung sounds bilaterally; Absent respiratory distress Cardiovascular Cardiovascular exam: Present regular rate and normal rhythm Abdominal Exam Abdominal exam: Present soft and tenderness (Right lower quadrant); Absent distention, guarding or rebound Extremities Exam Extremities exam: Present normal inspection Neurological Exam Neurological exam: Present alert and oriented X3 Psychiatric Psychiatric exam: Present normal affect and normal mood Skin Skin exam: Present warm and dry Medical Decision Making Medical Records Medical records reviewed: Yes I reviewed the patient's medical records. Screening: Per USPSTF and CDC recommendations, given the prevalence of disease in our region, it is our hospital?s policy to screen for HIV and viral Hepatitis for all patients aged 18 and over and those with ongoing risk factors. Dionisio Inquiry Pt receiving controlled substance: No Vital Signs: 05/28/25 12:07 05/28/25 12:30 05/28/25 13:00 Temperature 97.8 F Temperature Source Oral Pulse Rate 62 Pulse Rate [Left Radial] 60 Respiratory Rate 20 20 18 Blood Pressure 137/86 128/75 Blood Pressure [Right Arm] 160/92 H Blood Pressure Mean 103 92 Blood Pressure Mean [Right Arm] 114 02 Sat by Pulse Oximetry 98 95 95 Oxygen Delivery Method Room Air 05/28/25 14:00 Temperature Temperature Source Pulse Rate 82 Pulse Rate [Left Radial] Respiratory Rate 18 Blood Pressure 133/62 Blood Pressure [Right Arm] Blood Pressure Mean 83 Blood Pressure Mean [Right Arm] 02 Sat by Pulse Oximetry 97 Oxygen Delivery Method Lab Data Lab Results 05/28/25 12:24: WBC 5.1, RBC 4.09 L, Hgb 13.1, Hct 39.6, MCV 96.8, MCH 32.0 H, MCHC 33.1, RDW 13.8, Plt Count 154, MPV 9.3, Neut % (Auto) 70.3, Lymph % (Auto) 24.6, [place] % (Auto) 3.9, Eos % (Auto) 0.8, Baso % (Auto) 0.2, Neut # (Auto) 3.6, Lymph # (Auto) 1.3, [place] # (Auto) 0.2, Eos # (Auto) 0.0, Baso # (Auto) 0.0, Sodium 140, Potassium 4.0, Chloride 102, Carbon Dioxide 27, Anion Gap 15.0, BUN 16, Creatinine 0.90, Estimated Creat Clear 173, Estimated GFR 75, Est GFR ( Amer) 90, Glucose 123 H, Calcium 9.1, Total Bilirubin 0.6, AST 26, ALT 18, Alkaline Phosphatase 44, Total Protein 7.5, Albumin 4.5, Globulin 3.0, Albumin/Globulin Ratio 1.5, Lipase 90, Serum HCG, Qual Negative 05/28/25 13:49: Urine Color Yellow, Urine Appearance Clear, Urine pH 6.0, Ur Specific [place] 1.025, Urine Protein Trace, Urine Glucose (UA) Negative, Urine Ketones Negative, Urine Blood 3+ A, Urine Nitrate Negative, Urine Bilirubin 1+ A , Urine Urobilinogen 0.2, Ur Leukocyte Esterase Negative, Urine RBC 10-20, Urine WBC Occasional, Ur Squamous Epith Cells 5-10, Urine Bacteria 1+, Urine Mucus 1+ 05/28/25 12:24 05/28/25 12:24 Orders (Tests/Meds): ED MEDICATIONS Generic Name Dose Route Start Last Admin Trade Name Freq PRN Reason Stop Dose Admin Sodium Chloride 10 ml 05/28/25 13:29 05/28/25 13:30 Sodium Chloride 0.9% 10ml Syr (Rad Only) IV 06/27/25 13:28 10 ml NEEDED PRN Administration Maintain IV Site Discontinued Medications Generic Name Dose Route Start Last Admin Trade Name Freq PRN Reason Stop Dose Admin Hydromorphone HCl 0.5 mg 05/28/25 12:02 05/28/25 12:34 Hydromorphone 2mg/Ml Syringe IV 05/28/25 12:03 0.5 mg ONCE ONE Administration Iopamidol 75 ml 05/28/25 13:29 05/28/25 13:30 Iopamidol-370 (76%);100ml Bottle IV 05/28/25 13:30 75 ml ONCE ONE Administration Ketorolac Tromethamine 15 mg 05/28/25 13:51 05/28/25 13:53 Ketorolac 15mg/Ml Vial IV 05/28/25 13:52 15 mg ONCE ONE Administration Ketorolac Tromethamine 15 mg 05/28/25 13:52 05/28/25 13:54 Ketorolac 15mg/Ml Vial IV 05/28/25 13:53 Not Given ONCE ONE Ondansetron HCl 4 mg 05/28/25 12:02 05/28/25 12:34 Ondansetron 4mg/2ml Vial IV 05/28/25 12:03 4 mg ONCE ONE Administration ORDERS Category Date Time Status CT abdomen pelvis w con Stat Cat Scan 05/28/25 12:02 Completed US transvaginal Stat Exams 05/28/25 13:42 Completed CBC w/Auto Diff [Complete Blood Count Auto Diff] Stat Lab 05/28/25 12:24 Completed CMP [Comprehensive Metabolic Panel] Stat Lab 05/28/25 12:24 Completed HCG Qualitative, Serum Stat Lab 05/28/25 12:24 Completed Lipase Stat Lab 05/28/25 12:24 Completed Urinalysis and Microscopic Stat Lab 05/28/25 13:49 Completed Medical Decision Narrative: In summary, this 29-year-old female presents to the emergency department today with lower abdominal pain. Patient's comorbidities include PCOS which are not at goal therapy and may be exacerbating symptoms. On initial evaluation patient is in significant distress, tender to the right lower quadrant. Hemodynamically stable, afebrile. Nonperitonitic. Differential diagnosis includes but is not limited to appendicitis, ovarian torsion, ectopic , mesenteric adenitis, UTI. Based on these concerns, I ordered CBC, CMP, lipase, test, CT abdomen pelvis with IV contrast. Will evaluate CT imaging first and then reconsider transvaginal ultrasound. Patient received Dilaudid and Zofran for treatment. Labs reviewed demonstrate nonactionable CBC and CMP, negative test, normal lipase, no UTI. CT imaging independently interpreted by me demonstrates no acute intra-abdominal pathology.-Ordered transvaginal ultrasound awaiting final report from CT abdomen pelvis. Transvaginal ultrasound was obtained and independently interpreted by me, revealing of symmetrical ovarian volume bilaterally and intact flow. Report also noted mild fluid in the cul-de-sac with multiple ovarian cyst consistent with PCOS. It is possible that she experienced a cyst rupture. On reevaluation, the patient was resting comfortably and in no acute distress. Appropriate for discharge. Counseled on symptomatic management at home with Tylenol and ibuprofen. Prescribe Zofran for nausea and vomiting as needed. Critical Care Critical Care Time Critical Care Time: No
--- OUTSIDE RECORDS SUMMARY | 2025-05-28 12:04 | XMS_ITS | Clinical Summary ---
Author Organization [employer] [facility] Address [address] [place] [phone] Phone Care Team Providers Care Drama Therapist Name Role Phone Mary Turner PA-C Primary Care Physician [phone] [ ] Conditions or Problems Problem Name Problem Code Onset Date Status Entry Date Provider Comment Standard Description Annotate HEAD LICE PEDICULOS B85.2 (ICD-10-CM) Inactive Mary Turner PA-C Pediculosis, unspecified History of PREMATURE 403233844 (SNOMED CT) Active Christa Carmen MA Premature of 34 WEEKS GESTATION History of OBESITY NOS 000343700 (SNOMED CT) Active Christa Carmen MA Obesity History of ACNE 65943523 (SNOMED CT) Active Christa Carmen MA Acne Medications Medication Instructions Start Date Stop Date Generic Name [facility] Provider ULESFIA 5 % EXTERNAL LOTION APPLY TO HAIR, RINSE AFTER 10 MINUTES THEN REPEAT IN 1 WEEK BENZYL ALCOHOL [id number] Mary Turner PA-C Medications Administered No information available. Allergies, Adverse Reactions, Alerts Observed no known allergies at Results No information available. Plan of Care Type Date Detail Pending order Flu 3 yrs and ol catherine vfc Pending order Hep A pediatric/ adolescent dosage- 2 dose 2 schedule Procedures Code Procedure Name Date Entry Date [id number]-[id number] Flu 3 yrs and older vfc 2009 CPT-49165LOL Hep A pediatric/adol escent dosage- 2 dose [...]
--- OUTSIDE RECORDS SUMMARY | 2025-05-28 12:05 | XMS_ITS | Clinical Summary ---
Author Organization [facility] Address [address] [place] [address] Care Team Providers Care Church Warden Name Role Phone Maria Isabel Garrido Primary Care Provider [phone] Immunizations Immunization Administration Dates Next Due Influenza, [...] 3 - 19+ 3-dose series) 05/10/2022 04/12/2022 [id number] Vaccine ( - season) 2025 [facility]-Influenza Vaccine (#1) 05/09/202511/17, 10/13/2007 [facility]-Zoster Vaccines [...] this topic Insurance [employer] Care Teams Church Warden Relationship Specialty Start Date End Date Maria Isabel Garrido PA [address] [place] [address] PCP - General 01/19/21
--- OUTSIDE RECORDS SUMMARY | 2025-05-28 12:05 | XMS_ITS | Encounter Summary ---
Author Organization [facility] Address [address] [place] [address] Care Team Providers Care Program Director/Air Personality Name Role Phone Maria Isabel Garrido Primary Care Provider [phone] Encounter Details Date Type Department Care Team (Late st Contact Info) Description 12/15/2022 Orders Only External Location [address] [place] [address] Provider, External Social History Tobacco Use Types [...] on filedocumented in this encounter Care Teams Program Director/Air Personality Relationship Specialty Start Date End Date Maria Isabel Garrido PA [address] [place] [address] PCP - General 01/19/21 documented as of this encounter
--- OUTSIDE RECORDS SUMMARY | 2025-05-28 12:05 | XMS_ITS | Clinical Summary ---
Author Organization [facility] Address [address] [place] [phone] Phone [email or web address] Care Team Providers Care Groover Operator Name Role Phone Unavailable Primary Care Provider [...] Health Maintenance Due Date Last Done Comments Cervical Cancer Screening Combo 1996 Dental Cleaning/Exam 1996 HPV / Cotest 1996 Pap Testing 1996 Hepatitis A Immunization (2 of 2 - 2-dose series) 01/20/2011 07/23/2010 Tetanus Diphtheria and Pertussis Immunization (7 - Td or Tdap) 10/13/2017 10/13/2007, 11/03/2000, 10/13/1997, Additional history exists Covid-19 Immunization ( season) 2025 Influenza Immunization (#1) 05/09/202511/06, 07/23/2010, 10/13/2007 HIB Immunization Completed 10/13/1997, 01/1997, 02/10/1997, Additional history exists Polio Immunization Completed 11/03/2000, 0 04/12/1997, 02/10/1997, Additional history exists Pneumococcal: 65+ Years Discontinued 12/03/2000 Pneumococcal: Ped (0 to 5 Yrs) and [...]
[2025-05-28 12:07] VITALS: BP 160/92; PULSE 60; RESP 20; TEMP 36.6; O2SAT 98; BMI 37.3
[2025-05-28 12:30] VITALS: BP 137/86; RESP 20; O2SAT 95
[2025-05-28] MEDS: ONDANSETRON 4MG/2ML VIAL 4 MG IV (12:34)
[2025-05-28] MEDS: HYDROMORPHONE 2MG/ML SYRINGE 0.5 MG IV (12:34)
[2025-05-28 12:44] LABS: Hematocrit 39.6 % (37.0-47.0); Hemoglobin 13.1 g/dL (12.2-16.2); Immature Granulocytes % 0.2 %; Mean Corpuscular HGB Conc 33.1 g/dL (31.8-35.4); Mean Corpuscular Hemoglobin 32.0 pg (27.0-31.2); Mean Corpuscular Volume 96.8 fl (81-99); Nucleated Red Blood Cells % 0 %; Platelet Count 154 K/mm3 (142-424); Red Blood Count 4.09 M/mm3 (4.20-5.40); Red Cell Distribution Width-SD 48.8 fL; White Blood Count 5.1 K/mm3 (4.8-10.8)
[2025-05-28 13:00] VITALS: BP 128/75; PULSE 62; RESP 18; O2SAT 95
[2025-05-28 13:01] LABS: HCG Qualitative, Serum Negative (Negative)
[2025-05-28 13:17] LABS: Albumin Level 4.5 g/dl (3.5-5.0); Chloride 102 mmol/L (98-107); Potassium 4.0 mmoL/L (3.5-5.1); Sodium 140 mmol/L (136-145)
[2025-05-28 13:19] LABS: Blood Urea Nitrogen 16 mg/dl (7-17); Creatinine Clearance Estimated 173 mL/min (50-200); Creatinine,Serum 0.90 mg/dl (0.52-1.04); Estimated Glomerular Filt Rate 75 ml/min (>60); GFR (African American) 90 ML/MIN (>60)
[2025-05-28 13:20] LABS: Alanine Aminotransferase 18 U/L (12-78); Albumin/Globulin Ratio 1.5 (1.1-1.8); Alkaline Phosphatase 44 U/L (38-126); Anion Gap 15.0 mEq/L (5-15); Aspartate Amino Transferase 26 U/L (14-36); Bilirubin,Total 0.6 mg/dl (0.2-1.3); Carbon Dioxide 27 mmol/L (22.0-30.0); Globulin 3.0 g/dL (1.3-3.2); Lipase 90 U/L (23-300); Total Protein,Serum 7.5 g/dl (6.3-8.2)
[2025-05-28 13:21] LABS: Calcium 9.1 mg/dl (8.4-10.2); Glucose 123 mg/dl (74-100)
[2025-05-28] MEDS: IOPAMIDOL-370 (76%);100ML BOTTLE 75 ML IV (13:30)
[2025-05-28] MEDS: SODIUM CHLORIDE 0.9% 10ML SYR (RAD ONLY) 10 ML IV (13:30)
--- NOTE | 2025-05-28 13:33 | PC.NURSE ---
pt back form RAD
--- NOTE | 2025-05-28 13:42 | US_ITS ---
PROCEDURE INFORMATION: Exam: US Pelvis, Transvaginal, Non-Obstetric Exam date and time: 05/28/2025 2:10 PM Age: 29 years old Clinical indication: Pelvic pain; Additional info: R/O torsion TECHNIQUE: Imaging protocol: Real-time transvaginal pelvic (non-obstetric) ultrasound with image documentation. Transvaginal imaging was used for better evaluation of the endometrium, adnexa, and/or cervix. COMPARISON: US TRANSVAGINAL 04/07/2024 2:52 PM FINDINGS: Uterus: Uterus is anteverted and measures 7.8 x 3.6 x 4.6 cm. Endometrium homogeneous in echotexture and measures 7 mm in thickness at the uterine fundus. Right ovary/adnexa: Right ovary measures 2.8 x 2.6 x 2.1 cm. Multiple follicles along the periphery of the right ovary. Normal right ovarian vascularity. Left ovary/adnexa: Left ovary measures 3.1 x 2.2 x 2.1 cm. Multiple follicles along the periphery of the left ovary. Normal left ovarian vascularity. Urinary bladder: Urinary bladder is limited. Intraperitoneal space: No free fluid. IMPRESSION: 1. No acute abnormality. Specifically, no ovarian torsion. 2. Multiple follicles along the periphery of the ovaries bilaterally, which can be seen with polycystic ovarian syndrome.
--- NOTE | 2025-05-28 13:46 | PC.NURSE ---
Radiology notified of need for ultrasound.
[2025-05-28 13:53] LABS: Microscopic, Urine URINE MICROSCOPIC (MICROSCOPIC)
[2025-05-28] MEDS: KETOROLAC 15MG/ML VIAL 15 MG IV (13:53)
[2025-05-28 14:00] VITALS: BP 133/62; PULSE 82; RESP 18; O2SAT 97
[2025-05-28 14:01] LABS: Color,Urine YELLOW (Yellow); Glucose,Urine (UA) Negative (Negative); Ketones,Urine Negative (Negative); Leukocyte Esterase,Urine Negative (Negative); PH,Urine 6.0 (5.0-8.5); Protein,Urine TRACE (Negative); Specific Gravity, Urine 1.025 (1.005-1.030); Urobilinogen,Urine 0.2 EU/dl (0.2)
[2025-05-28 14:12] LABS: Bilirubin,Urine 1+ (Negative)
[2025-05-28 14:14] LABS: Bacteria,Urine 1+ /lpf; Mucus,Urine 1+ /lpf; WBC,Urine Occasional #/hpf (0-3)
--- NOTE | 2025-05-28 14:17 | PC.NURSE ---
pt to US
[2025-05-28 15:04] VITALS: BP 133/62; PULSE 75; RESP 20; TEMP 36.8; O2SAT 95
== END 2025-05-28 15:05 | disposition home or self-care (01) ==
PROVIDERS: Emergency Provider Student in an Organized Health Care Education/Training Program; PCP Physician Assistant
DX: R10.30 Lower abdominal pain, unspecified (principal); E28.2 Polycystic ovarian syndrome; K58.0 Irritable bowel syndrome with diarrhea; I10 Essential (primary) hypertension; F17.210 Nicotine dependence, cigarettes, uncomplicated
CPT/HCPCS: 74177; 76830; 80053; 81001; 83690; 84703; 85025; 96374; 96375; 99284; 99285; J1171; J1885; J2405; Q9967

== ENCOUNTER 2025-06-20 22:45 | Emergency (ER) | payer SELFPAY ==
[2025-06-20 22:48] VITALS: BP 164/99; PULSE 77; RESP 18; TEMP 36.9; O2SAT 98; BMI 31.5
--- OUTSIDE RECORDS SUMMARY | 2025-06-20 23:00 | XMS_ITS | Clinical Summary ---
Author Organization [employer] [facility] Address [address] [place] [phone] Phone Care Team Providers Care [employer] Advisor Name Role Phone Mary Turner PA-C Primary Care Physician [ ] Conditions or Problems Problem Name Problem Code Onset Date Status Entry Date Provider Comment Standard Description Annotate HEAD LICE PEDICULOS B85.2 (ICD-10-CM) Inactive Mary Turner PA-C Pediculosis, unspecified History of PREMATURE [id number] (SNOMED CT) Active Christa Carmen MA Premature of 34 WEEKS GESTATION History of OBESITY NOS 572821367 (SNOMED CT) Active Christa Carmen MA Obesity History of ACNE 05303942 (SNOMED CT) Active Christa Carmen MA Acne Medications Medication Instructions Start Date Stop Date Generic Name [facility] Provider ULESFIA 5 % EXTERNAL LOTION APPLY TO HAIR, RINSE AFTER 10 MINUTES THEN REPEAT IN 1 WEEK BENZYL ALCOHOL [id number] Mary Turner PA-C Medications Administered No information available. Allergies, Adverse Reactions, Alerts Observed no known allergies at Results No information available. Plan of Care Type Date Detail Pending order Flu 3 yrs and ol catherine vfc Pending order Hep A pediatric/ adolescent dosage- 2 dose 2 schedule Procedures Code Procedure Name Date Entry Date CPT-76085GMT Flu 3 yrs and older vfc 2009 CPT-[id number] Hep A pediatric/adol escent dosage- 2 dose [...]
--- OUTSIDE RECORDS SUMMARY | 2025-06-20 23:01 | XMS_ITS | Clinical Summary ---
Author Organization [facility] Address [address] [place] [address] Care Team Providers Care Beader Name Role Phone Maria Isabel Garrido Primary Care Provider [phone] Immunizations Immunization Administration Dates Next Due Influenza, [...] Date Last Done Comments [facility]-Depression Screening 1996 [facility]-/Child/Adol SDOH Screenings 1996 [facility]-Varicella Vaccines (2 of 2 - 2-dose childhood series) 12/01/2000 10/09/1999 HPV Vaccines (2 - 2-dose series) 04/12/2008 10/13/2007 [facility]- SDOH Screenings 2014 [facility]-Adult SDOH Screenings 2014 [facility]-Pap Smear 2017 [facility]-DTaP,Tdap,and Td Vaccines (2 - Td or Tdap) 10/13/2017 10/13/2007 [facility]-Hepatitis B Vaccines (2 of 3 - 19+ 3-dose series) 05/10/2022 04/12/2022 [id number] Vaccine ( - season) 2025 [facility]-Influenza Vaccine [...] this topic Insurance [employer] Care Teams Beader Relationship Specialty Start Date End Date Maria Isabel Garrido PA [address] [place] [address] PCP - General 01/19/21
--- OUTSIDE RECORDS SUMMARY | 2025-06-20 23:01 | XMS_ITS | Clinical Summary ---
Author Organization [facility] Address [address] [place] [phone] Phone [email or web address] Care Team Providers Care Tail Edger Name Role Phone Unavailable Primary Care Provider [...] 11/03/2000, 0 04/12/1997, 02/10/1997, Additional history exists Pneumococcal Immunization Aged Out 12/03/2000 No longer eligible based on patient's age to complete this topic Pneumococcal: 50+ Years Discontinued 12/03/2000 Meningococcal Immunization Discontinued 10/13/2007 HPV Immunization Completed 04/13/2009, , 10/13/2007 Varicella Immunization Completed 05/31/2009, 1999 Hepatitis B Immunization Completed 022, 04/12/1997, 1996, Additional history exists Insurance OPT OUT NO COPAY NB
--- OUTSIDE RECORDS SUMMARY | 2025-06-20 23:01 | XMS_ITS | Encounter Summary ---
Author Organization [facility] Address [address] [place] [address] Care Team Providers Care Database Programmer Analyst Name Role Phone Maria Isabel Garrido Primary Care Provider [phone] Encounter Details Date Type Department Care Team (Late st Contact Info) Description 12/15/2022 Orders Only External Location [address] [place] [address] Provider, External Social History Tobacco Use Types [...] on filedocumented in this encounter Care Teams Database Programmer Analyst Relationship Specialty Start Date End Date Maria Isabel Garrido PA [address] [place] [address] PCP - General 01/19/21 documented as of this encounter
--- NOTE | 2025-06-20 23:06 | XR_ITS ---
PROCEDURE INFORMATION: Exam: XR Left Wrist Exam date and time: 06/20/2025 11:17 PM Age: 29 years old Clinical indication: Pain; Wrist; Left; Additional info: [place] 12h ago, ttp near wrist TECHNIQUE: Imaging protocol: Radiologic exam of the left wrist. Views: 3 or more views. COMPARISON: CR XR WRIST LT MIN 3V 07/23/2019 2:56 PM FINDINGS: Bones/joints: Normal. Soft tissues: Normal. IMPRESSION: No acute findings.
--- NOTE | 2025-06-20 23:06 | XR_ITS ---
PROCEDURE INFORMATION: Exam: XR Left Forearm Exam date and time: 06/20/2025 11:19 PM Age: 29 years old Clinical indication: Pain; Lower or forearm; Left; Additional info: [place]osh 12h ago, distal pain TECHNIQUE: Imaging protocol: Radiologic exam of the left forearm. Views: 2 views. COMPARISON: CR Wrist L 06/20/2025 11:17 PM FINDINGS: Bones/joints: Normal. Soft tissues: Normal. IMPRESSION: No acute findings.
--- NOTE | 2025-06-20 23:07 | HMH.EDGENADL ---
Discharge Plan Disposition Patient Disposition: Home, Self-Care Condition: Good Prescriptions Prescriptions: No Action cefdinir 300 mg capsule 300 mg PO BID Qty: 20 0RF sulfamethoxazole-trimethoprim [Bactrim DS] 800-160 mg tablet 1 tab PO BID 7 Days Qty: 14 0RF ondansetron 4 mg tablet,disintegrating 4 mg PO Q6H PRN (Reason: nausea and vomiting) Qty: 20 0RF Referrals Follow up/Referrals: Yanique Meyer APRN [Primary Care Provider, Family Practice] - See instructions Activity Restrictions/Add. Instructions Additional Instructions/Restrictions: You were evaluated in the ER and are believed to be appropriate for discharge at this time. Take Tylenol and ibuprofen at home if needed for pain, do not exceed the recommended dose on the bottle. Drink water and eat a small snack each time you take these medications to avoid side effects. Wear the left wrist brace as needed for comfort and support but be sure to remove it a few times a day and do range of motion exercises with the left wrist and hand. Make an appointment with your primary care doctor for reevaluation in 2 to 3 days. Return to the ER with any new, worsening, or otherwise concerning symptoms. Clinical Impressions Clinical Impression: Left wrist pain Stand Alone Forms Stand Alone Forms: Work/School Release Print Language Print Language: South African Discharge ED Provider: Myra Levy Adult HPI General Chief complaint: Extremity Injury, Upper Stated complaint: fell on L wrist, can't move it Time Seen by Provider: 06/20/25 23:00 Mode of Arrival: Ambulatory Source of Information: Patient and Spouse Description of Symptoms (Recalled from ER Triage Doc. by RN): patient presents to the ER after falling off her bed. patient stated she sat down on her bed but ultimately slid off the bed, landing on her left wrist. History of Present Illness HPI narrative: 29-year-old female presents to the ER with 12 hours of left wrist pain. Patient reports this morning she went to sit on the edge of her bed but missed sliding off the side of the bed, she reached to catch herself with the left hand but was unable to do so. She landed on an outstretched left hand and fell completely to the floor. She denies hitting her head or losing consciousness. Does not take blood thinners. Patient is right-handed but states she has been having discomfort in the left wrist all day. She was unable to get to the ER earlier because of a court date and other obligations. Patient reports no medications prior to arrival. She is unsure when her last period was but believes it was in the last 6 weeks. States there is a chance that she is . Patient has full range of motion of the hand and wrist though she states moving the wrist is uncomfortable. She states her fingers all feel tingly both front and back but they are not numb. Related Data Previous Rx's ?Medication ?Instructions ?Recorded cefdinir 300 mg capsule 300 mg PO BID #20 caps 03/19/25 sulfamethoxazole 800 1 tab PO BID 7 days #14 tabs 03/22/25 mg-trimethoprim 160 mg tablet (Bactrim DS) ondansetron 4 mg disintegrating 4 mg PO Q6H PRN nausea and 05/28/25 tablet vomiting #20 tabs Allergies Allergy/AdvReac Type Severity Reaction Status Date / Time adhesive tape AdvReac Intermediate rash Verified 03/19/25 16:49 [facility] Disclaimer: The information contained in this section may have been updated after the patient was seen, as this information can be updated by other users. Medical History Depression Anxiety Urinary tract infection Migraine Asthma Hypertension Obesity (BMI 30-39.9) Vitamin D deficiency (~12/21/17) Hyperglycemia NOE (obstructive sleep apnea) Fatigue Surgical History H/O exploratory laparotomy History of knee surgery Family History Other No significant family history Social History Smoking Status: Current every day smoker tobacco type: cigarettes packs per day: 1 second hand exposure: Yes alcohol intake: never substance use type: denies use current occupational status: unemployed Travel in the last 8 weeks?: None household members: family housing: house 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 [employer] current occupational exposures/hazards: No caffeine: No Have you lived/traveled outside US in past 30 days?: No Contact w/someone who lives/traveled outside US past 30 days?: No Exposure to someone with infectious disease in past 14 days?: No Do you have a fever (greater than 100.4 F or 38 C)?: No Have you tested positive for COVID-19?: No Exposed to someone with COVID-19 in past 14 days?: No Do you have a sore throat?: No Do you have a cough?: No Do you have any weakness?: No Do you have any diarrhea?: No Are you experiencing any unusual bleeding?: No Do you have any muscle aches/pain?: No Do you have any abdominal pain?: No Are you experiencing loss of taste or smell?: No Other Medical History Have you received the Flu Vaccine for this season: No Have you received the Pneumonia Vaccine: No ROS Obtained: Yes Systems reviewed as appropriate & no additional complaints except as documented per HPI Physical Exam General General appearance: alert, in no apparent distress and obese Head Head exam: atraumatic and normocephalic Eye Eye exam: Present PERRL and EOMI ENT ENT exam: Present mucous membranes moist Neck Neck exam: Present normal inspection and full ROM Chest Chest inspection: Present symmetric chest wall rise Respiratory Respiratory exam: Absent respiratory distress or stridor Cardiovascular Cardiovascular exam: Present regular rate and normal rhythm Extremities Exam Extremities exam: Present full ROM (Range of motion of the left hand and wrist is full but uncomfortable), tenderness (Mild tenderness to palpation of the distal left forearm just proximal to the wrist with slight swelling but no bruising, no significant deformity), normal capillary refill, joint swelling (Slight left wrist) and other (Neurovascularly intact throughout despite patient describing tingly sensation she has full range of motion and sensation throughout all of the left hand and fingers) Neurological Exam Neurological exam: Present alert and oriented X3; Absent motor sensory deficit Psychiatric Psychiatric exam: Present normal affect and normal mood Skin Skin exam: Present warm and dry Medical Decision Making Medical Records Medical records reviewed: Yes I reviewed the patient's medical records. Screening: Per USPSTF and CDC recommendations, given the prevalence of disease in our region, it is our hospital?s policy to screen for HIV and viral Hepatitis for all patients aged 18 and over and those with ongoing risk factors. Dionisio Inquiry Pt receiving controlled substance: No Vital Signs: 06/20/25 22:48 Temperature 98.4 F Temperature Source Oral Pulse Rate [Right Radial] 77 Respiratory Rate 18 Blood Pressure [Right Arm] 164/99 H Blood Pressure Mean [Right Arm] 120 Blood Pressure Source [Right Arm] Automatic Cuff Blood Pressure Position [Right Arm] Sitting 02 Sat by Pulse Oximetry 98 Oxygen Delivery Method Room Air Lab Data Lab Results 06/20/25 23:16: Urine HCG, Qual Negative Orders (Tests/Meds): ED MEDICATIONS Discontinued Medications Generic Name Dose Route Start Last Admin Trade Name Rosalva PRN Reason Stop Dose Admin Acetaminophen 1,000 mg 06/20/25 23:14 06/20/25 23:22 Acetaminophen 500mg Tab PO 06/20/25 23:15 1,000 mg ONCE ONE Administration ORDERS Category Date Time Status Forearm XR left 2 views [XR forearm LT 2V] Stat Exams 06/20/25 23:06 Completed Wrist XR left minimum 3 views [XR wrist LT min 3V] Stat Exams 06/20/25 23:06 Completed Urine , HCG Qual. Stat Lab 06/20/25 23:16 Completed Medical Decision Narrative: In summary, this 29-year-old female with history of PCOS, family history of BRCA gene mutation, obesity, hypertension, NOE presents to the emergency department today with left wrist pain after FOOSH more than 12 hours ago. On initial evaluation patient is hemodynamically stable, afebrile, physical exam notable for mild tenderness to palpation of the distal left forearm just proximal to the wrist without obvious deformity, no crepitus, only mild swelling, no bruising, neurovascularly intact, patient describes tingling sensation in the fingers but has full range of motion and sensation, 2+ pulses, brisk capillary refill. Differential diagnosis includes but is not limited to fracture, dislocation, soft tissue injury, neurovascular injury, sprain, strain. Based on these concerns, I ordered x-ray left wrist. Because patient does not recall exactly when her LMP was urine test was also ordered. Patient is agreeable to receive Tylenol for pain management prior to UPT results. Labs personally reviewed demonstrate test negative. XR personally interpreted demonstrates no acute osseous injury, see radiology read for final interpretation. On reassessment patient is resting comfortably. Removable left wrist cock up splint was applied for support and comfort. Patient is appropriate for discharge at this time and comfortable with this plan. I gave instructions on wrist brace use and range of motion exercises. Patient was given instructions on symptomatic management, follow up instructions, and return precautions for the emergency department. Patient indicated understanding and was discharged in stable condition. Critical Care Critical Care Time Critical Care Time: No
[2025-06-20] MEDS: ACETAMINOPHEN 500MG TAB 1000 MG PO (23:22)
[2025-06-20 23:23] LABS: Urine Pregnancy, HCG Qual. Negative (Negative)
[2025-06-21 00:29] VITALS: BP 125/73; PULSE 72; RESP 18; TEMP 37.1; O2SAT 95
== END 2025-06-21 00:33 | disposition home or self-care (01) ==
PROVIDERS: Emergency Provider Emergency Medicine; PCP Family Medicine
DX: M25.532 Pain in left wrist (principal); W06.XXXA Fall from bed, initial encounter
CPT/HCPCS: 73090; 73110; 81025; 99283

== ENCOUNTER 2025-07-13 12:46 | Outpatient (CLI) | payer MEDICAID, SELFPAY ==
--- OUTSIDE RECORDS SUMMARY | 2025-07-13 12:51 | XMS_ITS | Clinical Summary ---
Author Organization Healthcare Address [address] [place] [address] Care Team Providers Care Financial Services Technician Name Role Phone Maria Isabel Garrido Primary Care Provider Immunizations Immunization Administration Dates Next Due Influenza, [...] 3 - 19+ 3-dose series) 05/10/2022 04/12/2022 [id number] Vaccine ( - season) 2025 UKY-Influenza Vaccine [...] this topic Insurance [employer] Care Teams Financial Services Technician Relationship Specialty Start Date End Date Maria Isabel Garrido PA [address] [place] [address] PCP - General 01/19/21
--- OUTSIDE RECORDS SUMMARY | 2025-07-13 12:51 | XMS_ITS | Encounter Summary ---
Author Organization Healthcare Address [address] [place] [address] Care Team Providers Care Fire Sprinkler Apparatus Inspector Name Role Phone Maria Isabel Garrido Primary Care Provider [phone] Encounter Details Date Type Department Care Team (Late st Contact Info) Description 12/15/2022 Orders Only External Location [address] [place] [address] Provider, External Social History Tobacco Use Types [...] on filedocumented in this encounter Care Teams Fire Sprinkler Apparatus Inspector Relationship Specialty Start Date End Date Maria Isabel Garrido PA [address] [place] [address] PCP - General 01/19/21 documented as of this encounter
[2025-07-13 15:21] LABS: Triiodothryronine (T3) Uptake 35 % (23.5-40.5)
[2025-07-13 16:28] LABS: Free Thyroxine Index 3.4 ug/dL (5.93-13.13); T4 (Thyroxine) 9.7 ug/dl (5.53-11.0)
[2025-07-13 16:42] LABS: Thyroid Stimulating Hormone 1.53 uIU/mL (0.465-4.68)
[2025-07-13 17:48] LABS: Free T4 (Free Thyroxine) 1.02 ng/dl (0.78-2.19)
== END 2025-07-13 23:59 | disposition home or self-care (01) ==
LOC: LAB 12:47
PROVIDERS: PCP Family Medicine; Visit Provider Family Medicine
DX: R79.89 Other specified abnormal findings of blood chemistry (principal)
CPT/HCPCS: 36415; 84436; 84439; 84443; 84479

== ENCOUNTER 2025-07-14 16:02 | Outpatient (CLI) | payer MEDICAID, SELFPAY ==
--- OUTSIDE RECORDS SUMMARY | 2025-07-14 16:04 | XMS_ITS | Clinical Summary ---
Author Organization [facility] Address [address] [place] [phone] Phone Care Team Providers Care Signal Supervisor Name Role Phone Mary Turner PA-C Primary Care Physician [ ] Conditions or Problems Problem Name Problem Code Onset Date Status Entry Date Provider Comment Standard Description Annotate HEAD LICE PEDICULOS B85.2 (ICD-10-CM) Inactive Mary Turner PA-C Pediculosis, unspecified History of PREMATURE 226950666 (SNOMED CT) Active Christa Carmen MA Premature of 34 WEEKS GESTATION History of OBESITY NOS 530098403 (SNOMED CT) Active Christa Carmen MA Obesity History of ACNE 02707392 (SNOMED CT) Active Christa Carmen MA Acne Medications Medication Instructions Start Date Stop Date Generic Name [facility] Provider ULESFIA 5 % EXTERNAL LOTION APPLY TO HAIR, RINSE AFTER 10 MINUTES THEN REPEAT IN 1 WEEK BENZYL ALCOHOL [id number] Mary Turner PA-C Medications Administered No information available. Allergies, Adverse Reactions, Alerts Observed no known allergies at Results No information available. Plan of Care Type Date Detail Pending order Flu 3 yrs and ol catherine vfc Pending order Hep A pediatric/ adolescent dosage- 2 dose 2 schedule Procedures Code Procedure Name Date Entry Date [id number] Flu 3 yrs and older vfc 2009 [id number] Hep A pediatric/adol escent dosage- 2 dose [...]
--- OUTSIDE RECORDS SUMMARY | 2025-07-14 16:05 | XMS_ITS | Clinical Summary ---
Author Organization Healthcare Address [address] [place] [address] Care Team Providers Care Process Development Engineer Name Role Phone Maria Isabel Garrido Primary [...] 3 - 19+ 3-dose series) 05/10/2022 04/12/2022 [id number] Vaccine ( - season) 2025 UKY-Influenza Vaccine [...] this topic Insurance [employer] Care Teams Process Development Engineer Relationship Specialty Start Date End Date Maria Isabel Garrido PA [address] [place] [address] PCP - General 01/19/21
--- OUTSIDE RECORDS SUMMARY | 2025-07-14 16:05 | XMS_ITS | Encounter Summary ---
Author Organization Healthcare Address [address] [place] [address] Care Team Providers Care Underground Bolting Machine Operator Name Role Phone Maria Isabel Garrido Primary Care Provider [phone] Encounter Details Date Type Department Care Team (Late st Contact Info) Description 12/15/2022 Orders Only External Location [address] [place] [address] Provider, External Social History Tobacco Use Types [...] on filedocumented in this encounter Care Teams Underground Bolting Machine Operator Relationship Specialty Start Date End Date Maria Isabel Garrido PA [address] [place] [address] PCP - General 01/19/21 documented as of this encounter
== END 2025-07-14 23:59 | disposition home or self-care (01) ==
LOC: LAB 16:03
PROVIDERS: PCP Family Medicine; Visit Provider Family Medicine
DX: Z13.0 Encounter for screening for diseases of the blood and blood-forming organs and certain disorders involving the immune mechanism (principal); Z83.2 Family history of diseases of the blood and blood-forming organs and certain disorders involving the immune mechanism
CPT/HCPCS: 81240

== ENCOUNTER 2025-07-21 12:55 | Outpatient (CLI) | payer MEDICAID, SELFPAY ==
--- NOTE | 2025-07-21 12:58 | XR_ITS ---
FINAL REPORT CLINICAL HISTORY: left wrist pain COMPARISON: 06/20/2025 FINDINGS: LEFT WRIST THREE VIEW FINDINGS: Three views show no evidence of an acute, displaced fracture or dislocation of the visualized bony architecture. The joint spaces appear normal. IMPRESSION: Unremarkable exam. Reviewed, Interpreted and Dictated by Matt Kenyon MD Transcribed by Aye Dye Authenticated and [facility]
--- OUTSIDE RECORDS SUMMARY | 2025-07-21 13:00 | XMS_ITS | Clinical Summary ---
Author Organization [employer] [facility] Address [address] [place] [phone] Phone Care Team Providers Care Elevator Installer Apprentice Name Role Phone Mary Turner PA-C Primary Care Physician [ ] Conditions or Problems Problem Name Problem Code Onset Date Status Entry Date Provider Comment Standard Description Annotate HEAD LICE PEDICULOS B85.2 (ICD-10-CM) Inactive Mary Turner PA-C Pediculosis, unspecified History of PREMATURE [id number] (SNOMED CT) Active Christa Carmen MA Premature of 34 WEEKS GESTATION History of OBESITY NOS 723467567 (SNOMED CT) Active Christa Carmen MA Obesity History of ACNE 84954298 (SNOMED CT) Active Christa Carmen MA Acne Medications Medication Instructions Start Date Stop Date Generic Name [facility] Provider ULESFIA 5 % EXTERNAL LOTION APPLY TO HAIR, RINSE AFTER 10 MINUTES THEN REPEAT IN 1 WEEK BENZYL ALCOHOL [id number] Mary Turner PA-C Medications Administered No information available. Allergies, Adverse Reactions, Alerts Observed no known allergies at Results No information available. Plan of Care Type Date Detail Pending order Flu 3 yrs and ol catherine vfc Pending order Hep A pediatric/ adolescent dosage- 2 dose 2 schedule Procedures Code Procedure Name Date Entry Date CPT-[id number] Flu 3 yrs and older vfc 2009 CPT-[id number] Hep A pediatric/adol escent dosage- 2 dose [...]
--- OUTSIDE RECORDS SUMMARY | 2025-07-21 13:01 | XMS_ITS | Encounter Summary ---
Author Organization Healthcare Address [address] [place] [address] Care Team Providers Care Mandrel Press Hand Name Role Phone Maria Isabel Garrido Primary Care Provider Encounter Details Date Type Department Care Team (Late st Contact Info) Description 12/15/2022 Orders Only External Location [address] [place] [address] Provider, External Social History Tobacco Use Types [...] on filedocumented in this encounter Care Teams Mandrel Press Hand Relationship Specialty Start Date End Date Maria Isabel Garrido PA [address] [place] [address] PCP - General 01/19/21 documented as of this encounter
--- OUTSIDE RECORDS SUMMARY | 2025-07-21 13:01 | XMS_ITS | Clinical Summary ---
Author Organization [facility] Address [address] [place] [phone] Phone [email or web address] Care Team Providers Care Enlisted Advisor Name Role Phone Unavailable Primary Care Provider [...] Screening Combo 1996 Dental Cleaning/Exam 1996 HPV only / HPV + Pap 1996 Pap only testing 1996 Hepatitis A Immunization (2 of 2 [...]
--- OUTSIDE RECORDS SUMMARY | 2025-07-21 13:01 | XMS_ITS | Clinical Summary ---
Author Organization Healthcare Address [address] [place] [address] Care Team Providers Care Channel Business Manager Name Role Phone Maria Isabel Garrido Primary Care Provider [phone] Immunizations Immunization Administration Dates Next Due Influenza, [...] 3 - 19+ 3-dose series) 05/10/2022 04/12/2022 [id number] Vaccine ( - season) 2025 UKY-Influenza Vaccine [...] this topic Insurance [employer] Care Teams Channel Business Manager Relationship Specialty Start Date End Date Maria Isabel Garrido PA [address] [place] [address] PCP - General 01/19/21
== END 2025-07-21 23:59 | disposition home or self-care (01) ==
LOC: RAD 12:56
PROVIDERS: PCP Family Medicine; Visit Provider Physician Assistant
DX: M25.532 Pain in left wrist (principal)
CPT/HCPCS: 73110